=== PATIENT | male | born 1975 | race Caucasian/White ===

== ENCOUNTER 2019-04-03 13:01 | Emergency (ER) | payer SELFPAY ==
[2019-04-03 13:39] LABS: Absolute Lymphocytes (CBC) 2.2 K/uL (0.7-4.9); Absolute Monocytes 0.6 K/uL (0.1-1.3); Absolute Neutrophil 7.8 K/uL (1.8-8.0); Basophils % 1.4 % (0-1.3); Eosinophils % 1.1 % (0-4.4); Hematocrit 43.2 % (39.6-49.0); Lymphocytes % 20.1 % (15.3-44.8); MPV 9.4 fL (7.6-11.3); Monocytes % 5.7 % (3.3-12.3); RBC Red Blood Cell Count 4.85 M/uL (4.33-5.43)
[2019-04-03 13:49] LABS: Protime INR 0.96
[2019-04-03] MEDS ORDERED: FUROSEMIDE 100 MG/10 ML VIAL IV ONE (13:51)
[2019-04-03] MEDS ORDERED: NITROGLYCERIN 1 GM PKT TD ONE (13:51)
[2019-04-03 13:58] LABS: ALT/SGPT 55 U/L (12-78); AST/SGOT 30 U/L (15-37); Albumin 3.5 g/dL (3.4-5.0); Alkaline Phosphatase 118 U/L (45-117); BUN Blood Urea Nitrogen 19 mg/dL (7-18); Bicarbonate 23 mmol/L (21-32); Bilirubin Direct < 0.1 mg/dL (0-0.2); Bilirubin Total 0.5 mg/dL (0.2-1.0); Glucose Level 238 mg/dL (74-106); Magnesium 2.1 mg/dL (1.8-2.4); NT PRO-BNP 1584 pg/mL (<125); Protein, Total 8.4 g/dL (6.4-8.2); Sodium Level 137 mmol/L (136-145); Troponin (Emerg Dept Use Only) < 0.02 ng/mL (0.0-0.045)
[2019-04-03 14:10] LABS: Urine Blood TRACE (NEG); Urine Glucose 2+ (NEG); Urine Protein 3+ (NEG); Urine pH 7.5 (5.0-7.0)
--- NOTE | 2019-04-03 14:27 | RAD REPORT ---
EXAM DESCRIPTION: RAD - Chest Single View - 04/03/2019 1:56 pm CLINICAL HISTORY: DYSPNEA Chest pain. COMPARISON: CHEST SINGLE VIEW dated 03/24/2015 FINDINGS: Portable technique limits examination quality. Moderate bilateral pulmonary opacities are present compatible with pulmonary edema. The heart is mode rately prominent size. No displaced fractures. IMPRESSION: Moderate CHF.
[2019-04-03] MEDS ORDERED: hydrOXYzine HCl 25 MG TAB ONE (15:58)
[2019-04-03] MEDS ORDERED: NITROGLYCERIN 0.4 MG/TAB SL ONE (15:58)
--- NOTE | 2019-04-03 16:54 | EDPHYS ---
Physician Documentation [facility] Name: Seth Smith Age: 43 yrs Sex: Male : 1975 Arrival Date: 04/03/2019 Time: 13:04 Bed 6 Private MD: Unknown, Unknown ED Physician Tanvir Ferreira HPI: 04/03 15:44 This 43 yrs old Male presents to ER via Ambulatory with complaints of jr8 Breathing Difficulty. 15:44 The patient has shortness of breath at rest. Onset: The symptoms/episode began/occurred jr8 gradually, 2 day(s) ago, and became worse and became persistent. Duration: The symptoms are continuous. The patient's shortness of breath is aggravated by exertion, supine position. Associated signs and symptoms: The patient has no apparent associated signs or symptoms. Severity of symptoms: At their worst the symptoms were moderate in the emergency department the symptoms are unchanged. The patient has experienced similar episodes in the past, a few times. The patient has not recently seen a physician. History of CHF. Started to have shortness of breath about 2 days ago that is now constant and without relief despite home medication . Historical: - Allergies: 13:11 Ativan; la1 13:11 Dilantin; la1 - PMHx: 13:11 Diabetes - NIDDM; CHF; COPD; Seizures; la1 - Immunization history:: Adult Immunizations up to date. - Social history:: Smoking status: Patient uses tobacco products, smokes one pack cigarettes per day. - Ebola Screening: : No symptoms or risks identified at this time. ROS: 15:44 Eyes: Negative for injury, pain, redness, and discharge, ENT: Negative for injury, jr8 pain, and discharge, Neck: Negative for injury, pain, and swelling, Cardiovascular: Negative for chest pain, palpitations, and edema, Abdomen/GI: Negative for abdominal pain, nausea, vomiting, diarrhea, and constipation, Back: Negative for injury and pain, MS/Extremity: Negative for injury and deformity, Skin: Negative for injury, rash, and discoloration, Neuro: Negative for headache, weakness, numbness, tingling, and seizure. 15:44 Respiratory: Positive for dyspnea on exertion, orthopnea, shortness of breath. Exam: 15:44 Eyes: Pupils equal round and reactive to light, extra-ocular motions intact. Lids and jr8 lashes normal. Conjunctiva and sclera are non-icteric and not injected. Cornea within normal limits. Periorbital areas with no swelling, redness, or edema. ENT: Nares patent. No nasal discharge, no septal abnormalities noted. Tympanic membranes are normal and external auditory canals are clear. Oropharynx with no redness, swelling, or masses, exudates, or evidence of obstruction, uvula midline. Mucous membranes moist. Neck: Trachea midline, no thyromegaly or masses palpated, and no cervical lymphadenopathy. Supple, full range of motion without nuchal rigidity, or vertebral point tenderness. No Meningismus. Abdomen/GI: Soft, non-tender, with normal bowel sounds. No distension or tympany. No guarding or rebound. No evidence of tenderness throughout. Back: No spinal tenderness. No costovertebral tenderness. Full range of motion. Skin: Warm, dry with normal turgor. Normal color with no rashes, no lesions, and no evidence of cellulitis. MS/ Extremity: Pulses equal, no cyanosis. Neurovascular intact. Full, normal range of motion. Neuro: Awake and alert, GCS 15, oriented to person, place, time, and situation. Cranial nerves II-XII grossly intact. Motor strength 5/5 in all extremities. Sensory grossly intact. Cerebellar exam normal. Normal gait. 15:44 Cardiovascular: Rate: tachycardic, Rhythm: regular, Pulses: Pulses are 2+ in right radial artery and left radial artery. Heart sounds: normal, normal S1and S2, no S3 or S4, no murmur, no rub, no gallop, Edema: 2+ edema to level of left midcalf, left ankle, left foot, right midcalf, right ankle and right foot, JVD: is not appreciated. 15:44 Respiratory: mild respiratory distress is noted, Respirations: tachypnea, Breath sounds: rales, that are mild, are located in both bases. Vital Signs: 13:11 BP 197 / 132; Pulse 108; Resp 32; Temp 97.5; Pulse Ox 99% on R/A; Weight 113.4 kg; la1 Height 5 ft. 11 in. (180.34 cm); 13:20 BP 166 / 124; Pulse 104; Resp 30 S; Pulse Ox 98% on R/A; iw 14:30 BP 159 / 116; Pulse 103; Resp 28; Pulse Ox 97% on R/A; ph 15:48 BP 178 / 122; Pulse 100; Resp 22; Pulse Ox 97% on R/A; ph 17:03 BP 165 / 106; Pulse 91; Resp 20; Pulse Ox 99% on R/A; ph 17:22 Temp 97.4; ph 13:11 Body Mass Index 34.87 (113.40 kg, 180.34 cm) la1 MDM: 13:22 Patient medically screened. jr8 16:50 Data reviewed: vital signs, nurses notes, lab test result(s), EKG, radiologic studies, jr8 plain films. Data interpreted: Pulse oximetry: on room air is 97 %. Interpretation: normal. Counseling: I had a detailed discussion with the patient and/or guardian regarding: the historical points, exam findings, and any diagnostic results supporting the discharge/admit diagnosis, lab results, radiology results, the need for outpatient follow up, a animator, to return to the emergency department if symptoms worsen or persist or if there are any questions or concerns that arise at home. Response to treatment: the patient's symptoms have markedly improved after treatment. ED course: Patient with mild CHF exacerbation. No other acute findings. Diuresed and BP managed. Patient feeling markedly better and now is resting comfortably flat. Will d/c home to f/u with Battery Recharger. If worse to come back for admission . 04/03 13:26 Order name: Basic Metabolic Panel; Complete Time: 14:03 04/03 13:26 Order name: CBC with Diff; Complete Time: 13:51 04/03 13:26 Order name: LFT's; Complete Time: 14:03 04/03 13:26 Order name: Magnesium; Complete Time: 14:03 04/03 13:26 Order name: NT PRO-BNP; Complete Time: 14:03 04/03 13:26 Order name: PT-INR; Complete Time: 14:03 04/03 13:26 Order name: Troponin (emerg Dept Use Only); Complete Time: 14:03 04/03 13:26 Order name: XRAY Chest (1 view); Complete Time: 14:43 04/03 13:26 Order name: EKG; Complete Time: 13:27 04/03 13:56 Order name: Urine Dipstick--Ancillary (enter results) ms 04/03 13:26 Order name: Cardiac monitoring; Complete Time: 15:10 04/03 13:26 Order name: EKG - Nurse/Tech; Complete Time: 15:10 04/03 13:26 Order name: IV Saline Lock; Complete Time: 14:46 04/03 13:26 Order name: Labs collected and sent; Complete Time: 15:10 04/03 13:26 Order name: O2 Per Protocol; Complete Time: 15:10 04/03 13:26 Order name: O2 Sat Monitoring; Complete Time: 15:10 Administered Medications: 14:15 Drug: Nitroglycerin Ointment 2 % 1 inches Route: Transdermal; Site: anterior chest wall;ph 15:00 Follow up: Response: No adverse reaction; Blood pressure is unchanged ph 14:35 Drug: Lasix 80 mg Route: IVP; Site: right antecubital; ph 16:00 Follow up: Urine output 3900 ml; Response: No adverse reaction; Marked relief of ph symptoms 15:48 Drug: Nitroglycerin 0.4 mg Route: Sublingual; ph 15:48 Drug: hydrOXYzine 50 mg Route: PO; ph 16:30 Follow up: Response: No adverse reaction; Anxiety decreased ph 16:12 Drug: Nitroglycerin 0.4 mg Route: Sublingual; ph 16:55 Drug: Nitroglycerin 0.4 mg Route: Sublingual; ph 17:00 Follow up: Response: No adverse reaction; Blood pressure is lowered ph Disposition: 04/04 12:50 Co-signature as Attending Physician, Tanvir Ferreira MD. Disposition: 04/03/19 16:53 Discharged to Home. Impression: Acute systolic (congestive) heart failure. - Condition is Stable. - Discharge Instructions: Heart Failure. - Medication Reconciliation Form, Thank You Letter, Antibiotic Education, Prescription Opioid Use form. - Follow up: Private Physician; When: 1 - 2 days; Reason: Recheck today's complaints, Continuance of care, Re-evaluation by your physician. - Problem is new. - Symptoms have improved. Signatures: Dispatcher [employer] EDMisbah Bland PA PA jr8 Shakeel Berry RN RN la1 Karen Elliott RN RN ph FerreiraTanvir MD MD gs Corrections: (The following items were deleted from the chart) 04/03 17:28 16:53 04/03/2019 16:53 Discharged to Home. Impression: Acute systolic (congestive) ph heart failure. Condition is Stable. Forms are Medication Reconciliation Form, Thank You Letter, Antibiotic Education, Prescription Opioid Use. Follow up: Private Physician; When: 1 - 2 days; Reason: Recheck today's complaints, Continuance of care, Re-evaluation by your physician. Problem is new. Symptoms have improved. jr8
--- NOTE | 2019-04-03 16:54 | ER ---
Nurse's Notes [facility] Name: Seth Smith Age: 43 yrs Sex: Male : 1975 Arrival Date: 04/03/2019 Time: 13:04 Bed 6 Private MD: Unknown, Unknown Diagnosis: Acute systolic (congestive) heart failure Presentation: 04/03 13:10 Presenting complaint: Patient states: Progressive SOB for the last 2 days, states if la1 feels like exacerbation of CHF and is swelling. Transition of care: patient was not received from another setting of care. Onset of symptoms was April 03, 2019. Risk Assessment: Do you want to hurt yourself or someone else? Patient reports no desire to harm self or others. Initial Sepsis Screen: Does the patient meet any 2 criteria? RR > 20 per min. Does the patient have a suspected source of infection? No. Patient's initial sepsis screen is negative. Care prior to arrival: None. 13:10 Method Of Arrival: Ambulatory la1 13:10 Acuity: MARKUS 2 la1 Historical: - Allergies: 13:11 Ativan; la1 13:11 Dilantin; la1 - PMHx: 13:11 Diabetes - NIDDM; CHF; COPD; Seizures; la1 - Immunization history:: Adult Immunizations up to date. - Social history:: Smoking status: Patient uses tobacco products, smokes one pack cigarettes per day. - Ebola Screening: : No symptoms or risks identified at this time. Screenin:00 Abuse screen: Denies threats or abuse. Denies injuries from another. Nutritional ph screening: No deficits noted. Tuberculosis screening: No symptoms or risk factors identified. Fall Risk None identified. Assessment: 13:30 General: Appears in no apparent distress. uncomfortable, obese, well groomed, Behavior ph is calm, cooperative, appropriate for age, Denies fever, feeling ill. Pain: Complains of pain in anterior aspect of left upper chest Pain does not radiate. Pain currently is 3 out of 10 on a pain scale. Quality of pain is described as pressure. Neuro: Level of Consciousness is awake, alert, obeys commands, Oriented to person, place, time, situation. Cardiovascular: Reports chest pain, shortness of breath, Denies nausea, palpitations, vomiting, Capillary refill < 3 seconds in bilateral fingers Patient's skin is warm and dry. Edema is 2+ to left ankle, left foot, right ankle and right foot Rhythm is sinus tachycardia Chest pain is described as mild, quality is pressure, is located in left anterior chest wall. Respiratory: Airway is patent Respiratory effort is even, labored, shallow, Respiratory pattern is tachypnea Breath sounds with crackles bilaterally. GI: Abdomen is round Patient currently denies abdominal pain, nausea, vomiting. Derm: Skin is intact, is healthy with good turgor, Skin is pink, warm \\T\\ dry. Musculoskeletal: Circulation, motion, and sensation intact. Range of motion: intact in all extremities. 14:30 Reassessment: Patient appears in no apparent distress at this time. Patient and/or ph family updated on plan of care and expected duration. Pain level reassessed. Patient is alert, oriented x 3, equal unlabored respirations, skin warm/dry/pink. 15:30 Reassessment: Patient appears in no apparent distress at this time. Patient and/or ph family updated on plan of care and expected duration. Pain level reassessed. Patient is alert, oriented x 3, equal unlabored respirations, skin warm/dry/pink. Work of breathing noted to have improved, respirations even and unlabored at 24 bpm, pt reports that SOB is improving, pt states, " I am feeling a little anxious though." ERP notified of pt's anxiety, PO medication given see MAR Patient states symptoms have improved. 16:30 Reassessment: Patient appears in no apparent distress at this time. Patient and/or ph family updated on plan of care and expected duration. Pain level reassessed. Pt resting quietly w/ eyes closed, respirations even and unlabored, awakens easily, reports that anxiety has improved, family at bedside. 17:25 Reassessment: Patient appears in no apparent distress at this time. Patient and/or ph family updated on plan of care and expected duration. Pain level reassessed. Patient is alert, oriented x 3, equal unlabored respirations, skin warm/dry/pink. Pt instructed to take home medications as prescribed and d/c home w/ family Patient denies pain at this time. Patient states feeling better. Patient states symptoms have improved. Vital Signs: 13:11 BP 197 / 132; Pulse 108; Resp 32; Temp 97.5; Pulse Ox 99% on R/A; Weight 113.4 kg; la1 Height 5 ft. 11 in. (180.34 cm); 13:20 BP 166 / 124; Pulse 104; Resp 30 S; Pulse Ox 98% on R/A; iw 14:30 BP 159 / 116; Pulse 103; Resp 28; Pulse Ox 97% on R/A; ph 15:48 BP 178 / 122; Pulse 100; Resp 22; Pulse Ox 97% on R/A; ph 17:03 BP 165 / 106; Pulse 91; Resp 20; Pulse Ox 99% on R/A; ph 17:22 Temp 97.4; ph 13:11 Body Mass Index 34.87 (113.40 kg, 180.34 cm) la1 ED Course: 13:04 Patient arrived in ED. ag5 13:04 Unknown, Unknown is Private Physician. ag5 13:10 Triage completed. la1 13:11 Arm band placed on left wrist. la1 13:22 Misbah Eugene PA is PHCP. jr8 13:22 Tanvir Ferreira MD is Attending Physician. jr8 13:32 Glenn Mazariegos LVN is Primary Nurse. em 13:45 Patient has correct armband on for positive identification. Placed in gown. Bed in low ph position. Call light in reach. Side rails up X 1. criminal justice lawyer on. Pulse ox on. NIBP on. 13:59 XRAY Chest (1 view) In Process Unspecified. EDMS 14:25 Missed attempt(s): 22 gauge in right antecubital area. Bleeding controlled, band aid ph applied, catheter tip intact. Missed attempt(s): 20 gauge in right forearm. Bleeding controlled, band aid applied, catheter tip intact. 14:46 Accessed peripheral vein via ultrasound, utilizing dynamic ultrasound technique using la1 18G Sureflo IV catheter MANNY. 15:37 Karen Elliott, RN is Primary Nurse. ph 17:25 No provider procedures requiring assistance completed. IV discontinued, intact, ph bleeding controlled, No redness/swelling at site. Pressure dressing applied. Administered Medications: 14:15 Drug: Nitroglycerin Ointment 2 % 1 inches Route: Transdermal; Site: anterior chest wall;ph 15:00 Follow up: Response: No adverse reaction; Blood pressure is unchanged ph 14:35 Drug: Lasix 80 mg Route: IVP; Site: right antecubital; ph 16:00 Follow up: Urine output 3900 ml; Response: No adverse reaction; Marked relief of ph symptoms 15:48 Drug: Nitroglycerin 0.4 mg Route: Sublingual; ph 15:48 Drug: hydrOXYzine 50 mg Route: PO; ph 16:30 Follow up: Response: No adverse reaction; Anxiety decreased ph 16:12 Drug: Nitroglycerin 0.4 mg Route: Sublingual; ph 16:55 Drug: Nitroglycerin 0.4 mg Route: Sublingual; ph 17:00 Follow up: Response: No adverse reaction; Blood pressure is lowered ph Output: 15:15 Urine: 1000ml (Voided); Total: 1000ml. ph 16:00 Urine: 3900ml; Total: 4900ml. ph 16:30 Urine: 1500ml (Voided); Total: 6400ml. ph 17:25 Urine: 1400ml (Voided); Total: 7800ml. ph Outcome: 16:53 Discharge ordered by jrGianni 17:28 Patient left the ED. ph 17:28 Discharged to home ambulatory, with family. ph 17:28 Condition: improved 17:28 Discharge instructions given to patient, Instructed on discharge instructions, follow up and referral plans. Demonstrated understanding of instructions, follow-up care. Signatures: Dispatcher [employer] Glenn Lopez, TORCH CUTTER TORCH CUTTER Alma Rosa Alvarez RN RN iw Roszak, Josh, PA PA jr8 Shakeel Berry RN RN la1 Hall, Patricia, RN RN ph G[place]in, Pastor [facility]
--- NOTE | 2019-04-04 10:38 | EKG ---
Test Date: 2019-04-03 Test Time: 13:19:47 Shear Helper: AGNES MEASUREMENT RESULTS: Intervals: Rate: 105 MI: 168 QRSD: 88 QT: 378 QTc: 499 [place]: P: 58 MI: 168 QRS: 65 T: 59 INTERPRETIVE STATEMENTS: Sinus tachycardia Possible Left atrial enlargement Borderline ECG Compared to ECG 03/24/2015 13:10:51 No significant changes Electronically Signed On 04-04-19 10:37:26 CDT by Spencer Bermeo
== END 2019-04-03 17:28 | disposition home or self-care (01) ==
LOC: ER 13:01
DX: I50.21 Acute systolic (congestive) heart failure (principal); E11.9 Type 2 diabetes mellitus without complications; J44.9 Chronic obstructive pulmonary disease, unspecified; Z88.8 Allergy status to other drugs, medicaments and biological substances; F17.210 Nicotine dependence, cigarettes, uncomplicated
CPT/HCPCS: 36415; 71045; 80048; 80076; 81003; 83735; 83880; 84484; 85025; 85610; 93005; 96374; 99285

== ENCOUNTER 2019-09-12 09:41 | Emergency (ER) | payer SELFPAY ==
[2019-09-12] MEDS ORDERED: METOPROLOL TARTRATE 5 MG/5 ML INJ IV ONE (10:24)
[2019-09-12 10:37] LABS: Absolute Lymphocytes (CBC) 1.1 K/uL (0.7-4.9); Basophils % 0.9 % (0-1.3); Hematocrit 40.7 % (39.6-49.0); Lymphocytes % 12.9 % (15.3-44.8); MPV 9.3 fL (7.6-11.3); RBC Red Blood Cell Count 4.65 M/uL (4.33-5.43)
[2019-09-12 10:39] LABS: Protime INR 1.01
[2019-09-12 10:51] LABS: ALT/SGPT 36 U/L (12-78); AST/SGOT 26 U/L (15-37); Albumin 3.1 g/dL (3.4-5.0); Alkaline Phosphatase 100 U/L (45-117); BUN Blood Urea Nitrogen 22 mg/dL (7-18); Bicarbonate 27 mmol/L (21-32); Bilirubin Direct 0.1 mg/dL (0-0.2); Bilirubin Total 0.5 mg/dL (0.2-1.0); Glucose Level 302 mg/dL (74-106); Magnesium 1.9 mg/dL (1.8-2.4); NT PRO-BNP 1022 pg/mL (<125); Potassium 3.6 mmol/L (3.5-5.1); Protein, Total 7.9 g/dL (6.4-8.2); Sodium Level 133 mmol/L (136-145); Troponin (Emerg Dept Use Only) < 0.02 ng/mL (0.0-0.045)
--- NOTE | 2019-09-12 10:54 | RAD REPORT ---
EXAM DESCRIPTION: RAD - Chest Single View - 09/12/2019 10:31 am CLINICAL HISTORY: CHF, COPD COMPARISON: April 03 ; March 2015 TECHNIQUE: AP portable chest image was obtained 1022 hours . FINDINGS: Mild prominent interstitial lung pattern is less pronounced than most recent comparison. H eart size is borderline enlarged. Vasculature within normal limits for portable imaging. Mediastinum is distorted somewhat by rotation. No measurable pleural effusion and no pneumothorax. No acute bony abnormality seen. No acute aortic findings suspected. IMPRESSION: No acute cardiopulmonary process. Patient does have mild interstitial prominence potentially masking earliest stages of edema or infilt rate.
--- NOTE | 2019-09-12 13:53 | ER ---
Nurse's Notes [facility] Name: Seth Smith Age: 44 yrs Sex: Male : 1975 Arrival Date: 09/12/2019 Time: 09:41 Bed 2 Private MD: Diagnosis: Chest pain on breathing Presentation: 09/12 10:48 Presenting complaint: Patient states: Patient states he is having chest pain and was ae4 worried about being exposed to carbon monoxide the previous evening, as he was with a friend whose car did not have a muffler, and his friend was treated for carbon monoxide poisoning. Transition of care: patient was not received from another setting of care. Onset of symptoms was September 08, 2019. Risk Assessment: Do you want to hurt yourself or someone else?. Initial Sepsis Screen: Does the patient meet any 2 criteria? No. Patient's initial sepsis screen is negative. Does the patient have a suspected source of infection? No. Patient's initial sepsis screen is negative. 10:48 Acuity: MARKUS 2 ae4 10:48 Method Of Arrival: Wheelchair ae4 10:48 Care prior to arrival: None. ae4 Historical: - Allergies: 10:27 Ativan; jl7 10:27 Dilantin; jl7 - Home Meds: 11:13 Bumex Oral [Active]; Metformin Oral [Active]; Entresto oral oral [Active]; ae4 11:14 Coreg Oral [Active]; ae4 - PMHx: 10:27 CHF; COPD; Diabetes - NIDDM; Seizures; jl7 - Immunization history:: Adult Immunizations up to date, Flu vaccine is not up to date. - Ebola Screening: : No symptoms or risks identified at this time. - Social history:: Smoking status: Patient uses tobacco products, smokes one-half pack cigarettes per day, Patient uses Patient reports hx of IV drug use. . Screenin:32 Abuse screen: Denies threats or abuse. Nutritional screening: No deficits noted. ae4 Tuberculosis screening: No symptoms or risk factors identified. Fall Risk None identified. Assessment: 09:48 General: Appears uncomfortable, obese, Behavior is cooperative, anxious, restless. ae4 Pain: Complains of pain in chest Pain does not radiate. Pain began gradually, 2-3 days ago. Neuro: Level of Consciousness is awake, alert, obeys commands, Oriented to person, place, time, situation, Appropriate for age. Cardiovascular: Skin is cool and dry., slightly diaphortic.. Respiratory: Airway is patent Respiratory effort is even, shallow, Mildly labored. Respiratory pattern is regular, symmetrical, Breath sounds with wheezes bilaterally. GI: No signs and/or symptoms were reported involving the gastrointestinal system. Abdomen is round obese, Bowel sounds present X 4 quads. : No signs and/or symptoms were reported regarding the genitourinary system. EENT: No signs and/or symptoms were reported regarding the EENT system. Derm: Patient has various dried lesions on ZEYAD arms. 11:58 Reassessment: Patient appears in no apparent distress at this time. Patient and/or ae4 family updated on plan of care and expected duration. Pain level reassessed. Patient states feeling better. Patient states symptoms have improved. 13:25 Reassessment: Patient appears in no apparent distress at this time. Patient lying in ae4 bed with eyes closed, respirations even, slightly labored. Patient states feeling better. 13:43 Reassessment: Patient appears in no apparent distress at this time. Patient and/or ae4 family updated on plan of care and expected duration. Pain level reassessed. Provider at bedside discussing plan of care. Patient states feeling better. 14:09 Reassessment: Patient and/or family updated on plan of care and expected duration. Pain ae4 level reassessed. Patient states feeling better. 14:12 Reassessment: Information on local certified social workers in health care provided for patient., per provider. ae4 Vital Signs: 10:24 BP 181 / 108; Pulse 104; Resp 22; Temp 98.4(O); Pulse Ox 100% on R/A; ae4 10:32 BP 157 / 102; Pulse 96; Resp 19; Pulse Ox 99% on R/A; ae4 10:47 BP 175 / 111; Pulse 92; Resp 19; Pulse Ox 97% on R/A; ae4 11:03 BP 161 / 105; Pulse 90; Resp 18; Pulse Ox 97% on R/A; ae4 11:07 Weight 117.93 kg (R); ae4 11:14 BP 150 / 101; Pulse 98; Resp 19; Pulse Ox 98% on R/A; ae4 11:14 ae4 11:58 BP 160 / 108; Pulse 99; Resp 20 S; Pulse Ox 98% ; ae4 13:27 BP 157 / 101; Pulse 99; Resp 20; Pulse Ox 98% on R/A; ae4 14:09 BP 176 / 112; Pulse 88; Resp 20; Pulse Ox 98% on R/A; ae4 11:14 Oxyegen applied at 3 L per Provider's order. ae4 ED Course: 09:41 Patient arrived in ED. mr 09:47 oYsi Pacheco MD is Attending Physician. kdr 09:57 Jerson Brown, RN is Primary Nurse. ae4 10:27 Arm band placed on right wrist. jl7 10:32 XRAY Chest (1 view) In Process Unspecified. EDMS 10:32 Placed in gown. Bed in low position. Call light in reach. Side rails up X 1. Cardiac ae4 monitor on. Pulse ox on. NIBP on. Warm blanket given. 10:32 Inserted saline lock: 22 gauge in right antecubital area, using aseptic technique. ae4 Blood collected. Patient maintains SpO2 saturation greater than 95% on room air. 10:52 Triage completed. ae4 14:09 IV discontinued, intact, bleeding controlled, No redness/swelling at site. Pressure ae4 dressing applied. 14:09 No provider procedures requiring assistance completed. ae4 Administered Medications: 10:00 Drug: Lopressor 5 mg Route: IVP; Site: right antecubital; ae4 10:43 Drug: Lopressor 5 mg Route: IVP; Site: right antecubital; ae4 11:03 Drug: Lopressor 5 mg Route: IVP; Site: right antecubital; ae4 11:07 Follow up: Response: Blood pressure is lowered ae4 Outcome: 13:52 Discharge ordered by . kdr 14:09 Discharged to home ambulatory. ae4 14:09 Condition: stable 14:09 Discharge instructions given to patient, Instructed on discharge instructions, follow up and referral plans. medication usage, Demonstrated understanding of instructions, Prescriptions given X 4. 14:13 Patient left the ED. ae4 Signatures: Dispatcher [employer] EDMS Yosi Pacheco MD MD kdr Rivera Snow Rodriguez Maya, CAROLA RN jl7 Jerson Brown, [place] RN ae4
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
[2019-09-12 15:37] VITALS: TEMP 98.4
[2019-09-12 15:42] VITALS: O2SAT 98
[2019-09-12 15:45] VITALS: BP 176/112
--- NOTE | 2019-09-13 09:36 | EKG ---
Test Date: 2019-09-12 Test Time: 09:54:15 Bull Driver: ISH MEASUREMENT RESULTS: Intervals: Rate: 96 WV: 182 QRSD: 86 QT: 390 QTc: 492 [place]: P: 41 WV: 182 QRS: 49 T: 68 INTERPRETIVE STATEMENTS: Normal sinus rhythm Prolonged QT Abnormal ECG Compared to ECG 04/03/2019 13:19:47 Prolonged QT interval now present Sinus tachycardia no longer present Electronically Signed On 09-13-19 09:36:00 FILING MACHINE OPERATOR by Spencer Bermeo
== END 2019-09-12 14:13 | disposition home or self-care (01) ==
LOC: ER 09:41
DX: R07.1 Chest pain on breathing (principal); E11.9 Type 2 diabetes mellitus without complications; J44.9 Chronic obstructive pulmonary disease, unspecified; I50.9 Heart failure, unspecified; G40.909 Epilepsy, unspecified, not intractable, without status epilepticus; F17.210 Nicotine dependence, cigarettes, uncomplicated; Z88.8 Allergy status to other drugs, medicaments and biological substances
CPT/HCPCS: 36415; 71045; 80048; 80076; 83735; 83880; 84484; 85025; 85610; 93005; 96374; 99285

== ENCOUNTER 2019-12-09 09:16 | Emergency (ER) | payer SELFPAY ==
[2019-12-09] MEDS ORDERED: NA CHLORIDE 0.9% 500 ML ONE (09:43)
[2019-12-09] MEDS ORDERED: ONDANSETRON 4 MG/2 ML VIAL ONE (09:43)
--- NOTE | 2019-12-09 10:22 | RAD REPORT ---
EXAM DESCRIPTION: RAD - Chest Single View - 12/09/2019 9:52 am CLINICAL HISTORY: vomiting;Chest pain Chest pain. COMPARISON: Chest Single View dated 09/12/2019; Chest Single View dated 04/03/2019; CHEST SINGLE VIEW dated 03/24/2015 FINDINGS: Portable technique limits examination quality. Mild interstitial pulmonary edema. The heart is moderately enlarged. No displaced fractures. IMPRESSION: Mild CHF.
[2019-12-09 12:03] LABS: Absolute Lymphocytes (CBC) 1.4 K/uL (0.7-4.9); Hematocrit 39.5 % (39.6-49.0); Lymphocytes % 12.2 % (15.3-44.8); MPV 8.8 fL (7.6-11.3); RBC Red Blood Cell Count 4.55 M/uL (4.33-5.43)
[2019-12-09 12:06] LABS: Protime INR 1.03
[2019-12-09 12:18] LABS: ALT/SGPT 24 U/L (12-78); AST/SGOT 17 U/L (15-37); Albumin 3.3 g/dL (3.4-5.0); Alkaline Phosphatase 137 U/L (45-117); BUN Blood Urea Nitrogen 35 mg/dL (7-18); Bicarbonate 27 mmol/L (21-32); Bilirubin Direct 0.1 mg/dL (0-0.2); Bilirubin Total 0.4 mg/dL (0.2-1.0); Glucose Level 260 mg/dL (74-106); Magnesium 2.4 mg/dL (1.8-2.4); NT PRO-BNP 392 pg/mL (<125); Potassium 5.2 mmol/L (3.5-5.1); Protein, Total 8.2 g/dL (6.4-8.2); Sodium Level 135 mmol/L (136-145); Troponin (Emerg Dept Use Only) < 0.02 ng/mL (0.0-0.045)
--- NOTE | 2019-12-09 12:44 | ER ---
Nurse's Notes [facility] Name: Seth Smith Age: 44 yrs Sex: Male : 1975 Arrival Date: 12/09/2019 Time: : Bed 19 Private MD: Diagnosis: Nausea and vomiting;Hyperglycemia, unspecified;Diabetes mellitus due to underlying condition;Dehydration Presentation: 12/09 09:22 Presenting complaint: N/V x 2 days, SOB and chest pressure since last night. Transition hb of care: patient was not received from another setting of care. Onset of symptoms was December 07, 2019. Risk Assessment: Do you want to hurt yourself or someone else? Patient reports no desire to harm self or others. Initial Sepsis Screen: Does the patient meet any 2 criteria? No. Patient's initial sepsis screen is negative. Does the patient have a suspected source of infection? No. Patient's initial sepsis screen is negative. Care prior to arrival: None. 09:22 Method Of Arrival: Ambulatory hb 09: Acuity: MARKUS 3 hb Triage Assessment: :24 General: Appears in no apparent distress. obese, well groomed, Behavior is calm, tw2 cooperative, appropriate for age. Pain: Complains of pain in chest. Cardiovascular: Reports chest pain. Historical: - Allergies: : Ativan; tw2 09: Dilantin; tw2 - Home Meds: : Metformin Oral [Active]; Entresto Oral [Active]; Coreg Oral [Active]; Bumex Oral tw2 [Active]; - PMHx: :23 CHF; COPD; Diabetes - NIDDM; Seizures; tw2 - Immunization history:: Adult Immunizations. - Coronavirus screen:: The patient has NOT traveled to [place] in the past 14 days. - Social history:: Smoking status: Patient uses street drugs, Methamphetamine (Meth) "i have no vein access because i shoot meth and i have used them all, now i am smoking it because i cant get it into a vein", . - Ebola Screening: : Patient denies travel to an Ebola-affected area in the 21 days before illness onset. Screenin: Abuse screen: Denies threats or abuse. Nutritional screening: No deficits noted. tw2 Tuberculosis screening: No symptoms or risk factors identified. Fall Risk None identified. Assessment: 09:20 General: Appears in no apparent distress. obese, unkempt, Behavior is calm, tw2 cooperative, appropriate for age. Pain: Pain does not radiate. Pain began 2-3 days ago. Neuro: Level of Consciousness is awake, alert, obeys commands, Oriented to person, place, time, situation. Cardiovascular: Heart tones S1 S2 Patient's skin is warm and dry. Respiratory: Reports shortness of breath at rest on exertion Airway is patent Respiratory effort is even, unlabored, Respiratory pattern is regular, symmetrical, Breath sounds are clear bilaterally. GI: Abdomen is round distended, Bowel sounds present X 4 quads. : No signs and/or symptoms were reported regarding the genitourinary system. EENT: No signs and/or symptoms were reported regarding the EENT system. Derm: Wound noted right hand, left hand, right arm, left arm, right leg and left leg Wound is pt has multiple wounds or skin sores in appearance on b/l hands, arms, legs, pt reports METH use. Musculoskeletal: Range of motion: intact in all extremities. 11:00 Reassessment: CAROLA Wiseman at bedside with US at this time, unsuccessful attempt, pt tw2 tolerated well. CAROLA Wiseman remains at bedside with Reyna Pagan to assist in further attempts at midline at this time, provider notified of delay for line, labs, medication admin at this time. 12:00 Reassessment: Patient appears in no apparent distress at this time. No changes from tw2 previously documented assessment. Patient and/or family updated on plan of care and expected duration. Pain level reassessed. Patient is alert, oriented x 3, equal unlabored respirations, skin warm/dry/pink. 12:58 Reassessment: Patient appears in no apparent distress at this time. No changes from tw2 previously documented assessment. Patient and/or family updated on plan of care and expected duration. Pain level reassessed. Patient is alert, oriented x 3, equal unlabored respirations, skin warm/dry/pink. Vital Signs: 09:22 BP 170 / 112; Pulse 84; Resp 16; Temp 97.4; Pulse Ox 100% ; Weight 117.93 kg; Height 5 hb ft. 11 in. (180.34 cm); Pain 7/10; 10:00 BP 170 / 113; Pulse 87; Resp 17; Pulse Ox 99% on 2 lpm NC; tw2 11:00 BP 164 / 113; Pulse 82; Resp 17; Pulse Ox 100% on R/A; tw2 12:03 BP 169 / 116; Pulse 80; Resp 17; Pulse Ox 99% on 2 lpm NC; tw2 12:59 BP 163 / 114; Pulse 77; Resp 17; Pulse Ox 99% on R/A; tw2 09:22 Body Mass Index 36.26 (117.93 kg, 180.34 cm) hb ED Course: 09:20 Patient arrived in ED. tw2 09:20 Arm band placed on. tw2 09:23 Triage completed. hb 09:23 EKG completed in triage. Results shown to MD. tw2 09:24 Patient has correct armband on for positive identification. Placed in gown. Bed in low hb position. Call light in reach. Side rails up X 1. abrasive band winder on. Pulse ox on. NIBP on. 09:24 Patient maintains SpO2 saturation greater than 95% on room air. tw2 09:25 Donna Hernandez RN is Primary Nurse. tw2 09:27 Yosi Pacheco MD is Attending Physician. kdr 09:52 XRAY Chest (1 view) In Process Unspecified. EDMS 11:20 Assisted CAROLA Wiseman with Ultrasound IV sent blood. dh3 11:20 Initial lab(s) drawn, by me, sent to lab. Inserted 18 G 8 CM PowerGlide Midline pro to sg the RUE. 12:56 IV discontinued, intact, bleeding controlled, No redness/swelling at site. Pressure tw2 dressing applied. Administered Medications: 11:55 Drug: Zofran 4 mg Route: IVP; Site: right upper arm; tw2 12:59 Follow up: Response: No adverse reaction; Nausea is decreased tw2 11:55 Drug: NS 0.9% 500 ml Route: IV; Rate: bolus; Site: right upper arm; tw2 12:50 Follow up: Response: No adverse reaction; IV Status: Completed infusion; IV Intake: tw2 500ml Intake: 12:50 IV: 500ml; Total: 500ml. tw2 Outcome: 12:43 Discharge ordered by . kdr 12:57 Discharged to home ambulatory, with family. tw2 12:57 Condition: stable 12:57 Discharge instructions given to patient, family, Instructed on discharge instructions, follow up and referral plans. medication usage, Demonstrated understanding of instructions, follow-up care, medications, Prescriptions given X 1. 13:00 Patient left the ED. tw2 Signatures: Dispatcher [employer] EDMS Bowen Holman, RN CAROLA Yosi Pacheco MD MD [facility] Cristina Tong RN RN Donna Hernandez RN RN [facility] Latasha Mcmillan 3 Corrections: (The following items were deleted from the chart) 10:08 09:21 Social history: Smoking status: tw 11:56 11:20 Assisted Bowen with Ultrasound IV sent blood 3 3
--- NOTE | 2019-12-09 12:44 | EDPHYS ---
Physician Documentation [facility] Name: Seth Smith Age: 44 yrs Sex: Male : 1975 Arrival Date: 12/09/2019 Time: 09:20 Bed 19 Private MD: ED Physician Yosi Pacheco HPI: 12/09 11:24 This 44 yrs old Male presents to ER via Ambulatory with complaints of Chest kdr Pain > 30 y/o. 11:24 The patient presents to the emergency department with nausea, that is mild, vomiting, kdr that is intermittent, diarrhea, that is intermittent. Onset: The symptoms/episode began/occurred 2 day(s) ago. Possible causes: unknown. The symptoms are aggravated by food , The symptoms are alleviated by nothing. Associated signs and symptoms: Pertinent positives: diarrhea. Severity of symptoms: At their worst the symptoms were mild in the emergency department the symptoms are unchanged. The patient has not experienced similar symptoms in the past. The patient has not recently seen a physician. His chest pain is a chronis issue and unchanged in frequency, duration, severity from past. Historical: - Allergies: 09:23 Ativan; tw2 09:23 Dilantin; tw2 - Home Meds: 09:23 Metformin Oral [Active]; Entresto Oral [Active]; Coreg Oral [Active]; Bumex Oral tw2 [Active]; - PMHx: 09:23 CHF; COPD; Diabetes - NIDDM; Seizures; tw2 - Immunization history:: Adult Immunizations. - Coronavirus screen:: The patient has NOT traveled to [place] in the past 14 days. - Social history:: Smoking status: Patient uses street drugs, Methamphetamine (Meth) "i have no vein access because i shoot meth and i have used them all, now i am smoking it because i cant get it into a vein", . - Ebola Screening: : Patient denies travel to an Ebola-affected area in the 21 days before illness onset. ROS: 11:24 Constitutional: Negative for fever, chills, and weight loss, Eyes: Negative for injury, kdr pain, redness, and discharge, Neck: Negative for injury, pain, and swelling, Respiratory: Negative for shortness of breath, cough, wheezing, and pleuritic chest pain, Back: Negative for injury and pain, : Negative for injury, bleeding, discharge, and swelling, MS/Extremity: Negative for injury and deformity, Neuro: Negative for headache, weakness, numbness, tingling, and seizure activity. Psych: Negative for depression, anxiety, suicide ideation, homicidal ideation, and hallucinations, Allergy/Immunology: Negative for hives, rash, and allergies, Endocrine: Negative for neck swelling, polydipsia, polyuria, polyphagia, and marked weight changes - the patient is poorly compliant wiht his medications Hematologic/Lymphatic: Negative for swollen nodes, abnormal bleeding, and unusual bruising. 11:24 Cardiovascular: Positive for chest pain. 11:24 Abdomen/GI: Positive for constipation, abdominal cramps. Exam: 09:30 ECG was reviewed by the Attending Physician. kdr 11:24 Constitutional: This is a well developed, well nourished patient who is awake, alert, kdr and in no acute distress. Head/Face: Normocephalic, atraumatic. Eyes: Pupils equal round and reactive to light, extra-ocular motions intact. Lids and lashes normal. Conjunctiva and sclera are non-icteric and not injected. Cornea within normal limits. Periorbital areas with no swelling, redness, or edema. Neck: Trachea midline, no thyromegaly or masses palpated, and no cervical lymphadenopathy. Supple, full range of motion without nuchal rigidity, or vertebral point tenderness. No Meningismus. Chest/axilla: Normal chest wall appearance and motion. Nontender with no deformity. No lesions are appreciated. Cardiovascular: Regular rate and rhythm with a normal S1 and S2. No gallops, murmurs, or rubs. Normal PMI, no JVD. No pulse deficits. Respiratory: Lungs have equal breath sounds bilaterally, clear to auscultation and percussion. No rales, rhonchi or wheezes noted. No increased work of breathing, no retractions or nasal flaring. Abdomen/GI: Soft, non-tender, with normal bowel sounds. No distension or tympany. No guarding or rebound. No evidence of tenderness throughout. Back: No spinal tenderness. No costovertebral tenderness. Full range of motion. MS/ Extremity: Pulses equal, no cyanosis. Neurovascular intact. Full, normal range of motion. Neuro: Awake and alert, GCS 15, oriented to person, place, time, and situation. Cranial nerves II-XII grossly intact. Motor strength 5/5 in all extremities. Sensory grossly intact. Cerebellar exam normal. Normal gait. Psych: Awake, alert, with orientation to person, place and time. Behavior, mood, and affect are within normal limits. 11:24 Skin: cellulitis, induration, that is moderate is noted, Other The patient has multiple wounds on his body the worst of which is on his right foot. It has been there for months according to the patient. Vital Signs: 09:22 BP 170 / 112; Pulse 84; Resp 16; Temp 97.4; Pulse Ox 100% ; Weight 117.93 kg; Height 5 hb ft. 11 in. (180.34 cm); Pain 7/10; 10:00 BP 170 / 113; Pulse 87; Resp 17; Pulse Ox 99% on 2 lpm NC; tw2 11:00 BP 164 / 113; Pulse 82; Resp 17; Pulse Ox 100% on R/A; tw2 12:03 BP 169 / 116; Pulse 80; Resp 17; Pulse Ox 99% on 2 lpm NC; tw2 12:59 BP 163 / 114; Pulse 77; Resp 17; Pulse Ox 99% on R/A; tw2 09:22 Body Mass Index 36.26 (117.93 kg, 180.34 cm) hb MDM: 12:43 Patient medically screened. kdr 14:16 Data reviewed: vital signs, nurses notes, lab test result(s), radiologic studies. kdr Counseling: I had a detailed discussion with the patient and/or guardian regarding: the historical points, exam findings, and any diagnostic results supporting the discharge/admit diagnosis, lab results, radiology results, the need for outpatient follow up. 12/09 09:37 Order name: Basic Metabolic Panel; Complete Time: 12:39 kdr 12/09 09:37 Order name: CBC with Diff; Complete Time: 12:20 kdr 12/09 09:37 Order name: LFT's; Complete Time: 12:39 kdr 12/09 09:37 Order name: Magnesium; Complete Time: 12:39 kdr 12/09 09:37 Order name: NT PRO-BNP; Complete Time: 12:39 kdr 12/09 09:37 Order name: PT-INR kdr 12/09 09:37 Order name: Troponin (emerg Dept Use Only); Complete Time: 12:39 kdr 02/20 09:37 Order name: XRAY Chest (1 view); Complete Time: 11:43 kdr 12/09 09:37 Order name: EKG; Complete Time: 09:39 kdr 12/09 09:37 Order name: Cardiac monitoring; Complete Time: 09:39 kdr 12/09 09:37 Order name: EKG - Nurse/Tech; Complete Time: 09:40 kdr 12/09 09:37 Order name: IV Saline Lock; Complete Time: 11:56 kdr 12/09 09:37 Order name: Labs collected and sent; Complete Time: 11:56 kdr 12/09 09:37 Order name: O2 Per Protocol; Complete Time: 09:40 kdr 12/09 09:37 Order name: O2 Sat Monitoring; Complete Time: 09:40 kdr 12/09 11:58 Order name: PO challenge; Complete Time: 12:48 kdr EC:30 Rate is 81 beats/min. Rhythm is regular, Normal Sinus Rhythm with No ectopy. QRS [place] kdr is Normal. Clinical impression: NSR w/ Non-specific ST/T Changes. Administered Medications: 11:55 Drug: Zofran 4 mg Route: IVP; Site: right upper arm; tw2 12:59 Follow up: Response: No adverse reaction; Nausea is decreased tw2 11:55 Drug: NS 0.9% 500 ml Route: IV; Rate: bolus; Site: right upper arm; tw2 12:50 Follow up: Response: No adverse reaction; IV Status: Completed infusion; IV Intake: tw2 500ml Disposition: 12/09/19 12:43 Discharged to Home. Impression: Nausea and vomiting, Hyperglycemia, unspecified, Diabetes mellitus due to underlying condition, Dehydration. - Condition is Stable. - Discharge Instructions: Dehydration, Adult, Nausea and Vomiting, Adult, Bsmj-[id number], Blood Glucose Monitoring, Adult, Hyperglycemia, Zzvw-[id number]. - Prescriptions for Zofran 4 mg Oral Tablet - take 1 tablet by ORAL route every 4-6 hours As needed; 15 tablet. - Medication Reconciliation Form, Thank You Letter form. - Follow up: Private Physician; When: 2 - 3 days; Reason: If symptoms return, Further diagnostic work-up, Recheck today's complaints, Continuance of care, Re-evaluation by your physician. - Problem is new. - Symptoms are resolved. Signatures: Dispatcher [employer] EDGA Yosi Pacheco MD MD kdr Donna Hernandez RN RN tw2 Corrections: (The following items were deleted from the chart) 10:08 09:21 Social history: Smoking status: tw2 tw 13:00 12:43 12/09/2019 12:43 Discharged to Home. Impression: Nausea and vomiting; tw2 Hyperglycemia, unspecified; Diabetes mellitus due to underlying condition; Dehydration. Condition is Stable. Forms are Medication Reconciliation Form, Thank You Letter, Antibiotic Education, Prescription Opioid Use. Follow up: Private Physician; When: 2 - 3 days; Reason: If symptoms return, Further diagnostic work-up, Recheck today's complaints, Continuance of care, Re-evaluation by your physician. Problem is new. Symptoms are resolved. kdr
[2019-12-09 13:27] VITALS: BP 120/78; TEMP 98; O2SAT 100
--- NOTE | 2019-12-10 07:54 | EKG ---
Test Date: 2019-12-09 Test Time: 09:26:39 Web Knitter: MIGUEL MEASUREMENT RESULTS: Intervals: Rate: 81 GA: 194 QRSD: 88 QT: 422 QTc: 490 [place]: P: 20 GA: 194 QRS: 45 T: 59 INTERPRETIVE STATEMENTS: Normal sinus rhythm Nonspecific T wave abnormality Prolonged QT Abnormal ECG Compared to ECG 09/12/2019 09:54:15 T-wave abnormality now present Electronically Signed On 12-10-19 07:52:00 CONDUIT CLEANER by Kip Judd
== END 2019-12-09 13:00 | disposition home or self-care (01) ==
LOC: ER 09:16
DX: E86.0 Dehydration (principal); E11.65 Type 2 diabetes mellitus with hyperglycemia; J44.9 Chronic obstructive pulmonary disease, unspecified
CPT/HCPCS: 36415; 71045; 80048; 80076; 83735; 83880; 84484; 85025; 85610; 93005; 96361; 96374; 99285; J2405; J7040

== ENCOUNTER 2020-10-12 04:19 | Emergency (ER) | payer SELFPAY ==
--- OUTSIDE RECORDS SUMMARY | 2020-10-12 04:22 | XMS REPORT | Continuity of Care Document ---
:1975 Author Organization [facility] t Address [address] [place] [address] Care Team Providers Name Role Phone Asked, No Pcp Primary Care Physician Unavailable Jerad Mcdonald Attending Clinician Problems Condition Condition Condition Status Onset Resolution Last Treating Co mments Source Name Details Category Date Date Treatment Clinician Date Chest pain Chest pain Disease Active H nestor 05-01 Methodi 00:00: st 00 Allergies, Adverse Reactions, Alerts This patient has no known allergies or adverse reactions. Social History Social Habit Start Date Stop Date Quantity Comments Source Sex Assigned At [facility] ethodist Alcohol intake 2017-05-01 2017-05-01 Current drinker [place] [facility] 00:00:00 00:00:00 of alcohol (finding) Smoking Status Start Date Stop Date Source Current every day smoker 2017-05-01 00:00:00 Eric Norman Medications Ordered Filled Start Stop Current Ordering Indication Dosage Frequency Signature Comments Components Source Medication Medication Date Date Medication? Clinician (SIG) Name Name escitalopra Yes 20mg QD Take 20 mg Mauricio (LEXAPRO) 7-18 by mouth Meth mildred 20 MG 17:30: daily. st tablet 23 LORAZepam Yes .5mg Q6H Take 0.5 [place] (ATIVAN) 7-18 mg by Methodi 0.5 MG 17:30: mouth st tablet 23 every 6 (six) hours as needed for anxiety. metFORMIN 2016- Yes 1000mg Q.5D Take 1,000 Mauricio (GLUCOPHAGE 7-18 mg by Methodi ) 1,000 mg 17:30: mouth 2 st tablet 23 (two) times a day. nicotine 2016- Yes 1{patch Q24H Place 1 Eric lebron (NICODERM 7-18 } patch on Method i CQ) 21 17:30: the skin st mg/24 hr 23 daily. Procedures This patient has no known procedures. Plan of Care Planned Activity Planned Date Details Comments Source Future Scheduled 2020-05-20 INFLUENZA VACCINE Tootie cain [facility] Test 00:00:00 [code = INFLUENZA VACCINE] Future Scheduled 1991 COVID-19 VACCINE Mauricio [facility] Test 00:00:00 (#1) [code = COVID-19 VACCINE (#1)] Encounters Start End Encounter Admission Attending Care Care Encounter Source Date/Time Date/Time Type Type Clinicians Facility Department ID 2019-12-28 2019-12-28 Emergency [facility] [id number] 18:15:10 20:22:00 [place] [id number] [place] [id number] [place] [id number] Results This patient has no known results.
--- OUTSIDE RECORDS SUMMARY | 2020-10-12 04:22 | XMS REPORT | Clinical Summary ---
:1975 Author Organization [facility] Address [address] [place] [address] Care Team Providers Name Role Phone Asked, No Pcp Primary Care Provider Unavailable Allergies No Known Active Allergies Medications Medication Sig Dispensed Refills Start Date End Date Status escitalopram (LEXAPRO) Take 20 mg by 0 Active 20 MG tablet mouth daily. LORAZepam (ATIVAN) 0.5 Take 0.5 mg by 0 Active MG tablet mouth every 6 (six) hours as needed for anxiety. metFORMIN (GLUCOPHAGE) Take 1,000 mg by 0 Active 1,000 mg tablet mouth 2 (two) times a day. nicotine (NICODERM CQ) Place 1 patch on 0 Active 21 mg/24 hr the skin daily. Active Problems Problem Noted Date Chest pain 05/01/2017 Medical History Medical History Date Comments CHF (congestive heart failure) (HCC) Hypertension Renal disorder Diabetes mellitus (HCC) Social History Tobacco Use Types Packs/Day Years Used Date Current Every Day Smoker Alcohol Use Drinks/Week oz/Week Comments Yes Sex Assigned at Date Recorded Not on file Last Filed Vital Signs Not on file Plan of Treatment Health Maintenance Due Date Last Done Comments COVID-19 VACCINE (#1) 1991 INFLUENZA VACCINE 05/20/2020 Results Not on fileafter 10/12/2019 Advance Directives For more information, please contact: [phone] Type Date Recorded Patient Credit Relationship Manager Explanati on Advance Directives, Living Will and Medical Power of Special Education Supervisor Code Status Date Activated Date Inactivated Comments Full Code 05/01/2017 3:04 PM 05/06/2017 9:35 PM Code Status decision reached by: Patient
[2020-10-12] MEDS ORDERED: METOPROLOL TAR 25 MG TAB ONE (05:02)
[2020-10-12] MEDS ORDERED: IPRATROPIUM BROM 0.5MG/2.5ML ONE (05:02)
[2020-10-12] MEDS ORDERED: predniSONE 20 MG TAB ONE (05:03)
[2020-10-12] MEDS ORDERED: DIAZEPAM 2 MG TABLET ONE (05:09)
[2020-10-12] MEDS ORDERED: FUROSEMIDE 40 MG TABLET ONE (05:10)
[2020-10-12] MEDS ORDERED: DIAZEPAM 5 MG TABLET ONE (05:11)
[2020-10-12 05:17] LABS: Absolute Lymphocytes (CBC) 1.9 K/uL (0.7-4.9); Basophils % 0.9 % (0-1.3); Hematocrit 39.6 % (39.6-49.0); Lymphocytes % 16.1 % (15.3-44.8); MPV 8.8 fL (7.6-11.3); RBC Red Blood Cell Count 4.55 M/uL (4.33-5.43)
[2020-10-12 05:19] LABS: Protime INR 1.03
[2020-10-12 05:45] LABS: ALT/SGPT 34 U/L (12-78); AST/SGOT 24 U/L (15-37); Albumin 3.3 g/dL (3.4-5.0); Alkaline Phosphatase 126 U/L (45-117); BUN Blood Urea Nitrogen 30 mg/dL (7-18); Bicarbonate 22 mmol/L (21-32); Bilirubin Direct < 0.1 mg/dL (0-0.2); Bilirubin Total 0.5 mg/dL (0.2-1.0); Glucose Level 330 mg/dL (74-106); Magnesium 2.1 mg/dL (1.8-2.4); NT PRO-BNP 1791 pg/mL (<125); Potassium 3.8 mmol/L (3.5-5.1); Protein, Total 8.5 g/dL (6.4-8.2); Sodium Level 135 mmol/L (136-145); Troponin (Emerg Dept Use Only) 0.02 ng/mL (0.0-0.045)
[2020-10-12] MEDS ORDERED: FUROSEMIDE 20 MG/ 2ML VIAL ONE (06:21)
[2020-10-12] MEDS ORDERED: HYDRALAZINE HCL 20 MG/ML VIAL ONE (06:22)
--- NOTE | 2020-10-12 06:30 | ER ---
Nurse's Notes [facility] Name: Seth Smith Age: 45 yrs Sex: Male : 1975 Arrival Date: 10/12/2020 Time: 04:21 Bed 13 Private MD: Diagnosis: Chronic systolic (congestive) heart failure Presentation: 10/12 04:32 Chief complaint: Patient states: NOT COMPLIANT WITH MEDICATION. HAS NOT BEEN TAKING IT rv FOR TWO WEEKS, OUT OF PRESCRIPTION REFILLS. Coronavirus screen: Client denies travel out of the [place] in the last 14 days. shortness of breath, Client presents with at least one sign or symptom that may indicate coronavirus-19. Standard/surgical mask placed on the client. Provider contacted for isolation considerations. Ebola Screen: No symptoms or risks identified at this time. Initial Sepsis Screen: Does the patient meet any 2 criteria? No. Patient's initial sepsis screen is negative. Does the patient have a suspected source of infection? No. Patient's initial sepsis screen is negative. Risk Assessment: Do you want to hurt yourself or someone else? Patient reports no desire to harm self or others. Onset of symptoms is unknown. 04:32 Method Of Arrival: Ambulatory rv 04:32 Acuity: MARKUS 3 rv Triage Assessment: 04:35 General: Appears uncomfortable, Behavior is calm. Pain: Denies pain. EENT: No signs rv and/or symptoms were reported regarding the EENT system. Neuro: Level of Consciousness is awake, alert, obeys commands, Oriented to person, place, time, situation. Cardiovascular: Patient's skin is warm and dry. Respiratory: Reports shortness of breath at rest Breath sounds with crackles bilaterally. Onset: The symptoms/episode began/occurred gradually, the patient has mild shortness of breath. Derm: Skin is intact. Historical: - Allergies: 04:35 Ativan; rv 04:35 Dilantin; rv - PMHx: 04:35 CHF; COPD; Diabetes - NIDDM; Seizures; rv - PSHx: 04:35 None; rv - Immunization history:: Adult Immunizations up to date. - Social history:: Smoking status: Patient reports the use of cigarette tobacco products, smokes one pack cigarettes per day. Patient/guardian denies using alcohol, street drugs, The patient lives with family. - Family history:: not pertinent. Screenin:35 Abuse screen: Denies threats or abuse. Nutritional screening: No deficits noted. jb4 Tuberculosis screening: No symptoms or risk factors identified. Fall Risk None identified. Assessment: 04:35 General: Appears distressed, uncomfortable, Behavior is calm, cooperative, appropriate jb4 for age. Pain: Denies pain. Neuro: Level of Consciousness is awake, alert, obeys commands, Oriented to person, place, time, situation. Cardiovascular: Patient's skin is warm and dry. Respiratory: Airway is patent Respiratory effort is even, labored, Respiratory pattern is symmetrical, tachypnea Breath sounds with wheezes bilaterally. GI: No signs and/or symptoms were reported involving the gastrointestinal system. : No signs and/or symptoms were reported regarding the genitourinary system. EENT: No signs and/or symptoms were reported regarding the EENT system. Derm: Skin is intact, Skin is pink, warm \T\ dry. Musculoskeletal: Circulation, motion, and sensation intact. Range of motion: intact in all extremities. 05:20 Reassessment: Patient appears in no apparent distress at this time. Patient and/or jb4 family updated on plan of care and expected duration. Pain level reassessed. Patient is alert, oriented x 3, equal unlabored respirations, skin warm/dry/pink. 05:20 Respiratory: Airway is patent Respiratory effort is even, unlabored, Respiratory jb4 pattern is regular, symmetrical, Breath sounds are clear bilaterally. 06:21 Reassessment: Patient appears in no apparent distress at this time. Patient and/or jb4 family updated on plan of care and expected duration. Pain level reassessed. Patient is alert, oriented x 3, equal unlabored respirations, skin warm/dry/pink. Vital Signs: 04:32 BP 208 / 128; Pulse 107; Resp 27; Temp 98.5; Pulse Ox 99% on R/A; Weight 113.4 kg; rv Height 5 ft. 11 in. (180.34 cm); Pain 0/10; 05:30 BP 218 / 130; Pulse 100; Resp 20; Pulse Ox 98% on R/A; jb4 06:20 BP 178 / 99; Pulse 94; Resp 16; Pulse Ox 98% on R/A; jb4 04:32 Body Mass Index 34.87 (113.40 kg, 180.34 cm) rv ED Course: 04:21 Patient arrived in ED. bp1 04:34 Cortez Galloway MD is Attending Physician. ma2 04:34 Triage completed. rv 04:35 Patient has correct armband on for positive identification. Bed in low position. Call jb4 light in reach. Side rails up X 1. Pulse ox on. NIBP on. 04:36 Arm band placed on right wrist. Patient placed in the treatment room, on a stretcher, rv Patient notified of wait time. 04:42 XRAY Chest (1 view) In Process Unspecified. EDMS 04:50 Initial lab(s) drawn, by me, sent to lab. Inserted saline lock: 20 gauge in right jb4 antecubital area, using aseptic technique. Blood collected. 04:53 Dany Caldwell, CAROLA is Primary Nurse. jb4 06:45 No provider procedures requiring assistance completed. jb4 06:45 intact, bleeding controlled, No redness/swelling at site. Pressure dressing applied. jb4 Administered Medications: 04:50 Drug: Metoprolol 25 mg {Note: Administered by CAROLA Strauss.} Route: PO; jb4 06:00 Follow up: Response: No adverse reaction jb4 04:50 Drug: AtroVENT Aerosol 0.5 mg {Note: Administered by Rica RN.} Route: Inhalation; jb4 05:30 Follow up: Response: No adverse reaction; Wheezing diminished jb4 04:50 Drug: predniSONE 60 mg {Note: Administered by Rica RN.} Route: PO; jb4 06:00 Follow up: Response: No adverse reaction jb4 04:59 Drug: LaSIX 40 mg Route: PO; jb4 06:00 Follow up: Response: No adverse reaction jb4 04:59 Drug: Valium 10 mg Route: PO; jb4 06:00 Follow up: Response: No adverse reaction; Marked relief of symptoms jb4 05:57 Not Given (Pt reports adverse reaction and refuses): Ativan 1 mg IVP once jb4 06:11 Drug: Lasix 20 mg Route: IVP; Site: right antecubital; jb4 06:46 Follow up: Response: No adverse reaction jb4 06:15 Drug: hydrALAZINE 10 mg Route: IV; Rate: calculated rate; Site: right antecubital; jb4 06:20 Follow up: Response: No adverse reaction; Blood pressure is lowered; IV Status: jb4 Completed infusion; IV Intake: 10ml Intake: 06:20 IV: 10ml; Total: 10ml. jb4 Outcome: 06:29 Discharge ordered by . rashawn 06:45 Discharged to home ambulatory. jb4 06:45 Condition: stable 06:45 Discharge instructions given to patient, Instructed on discharge instructions, follow up and referral plans. no drinking with medication, medication usage, Demonstrated understanding of instructions, follow-up care, medications, Prescriptions given X 7 06:48 Patient left the ED. jb4 Signatures: Dispatcher [employer] EDDany Lawrence RN RN jbCortez Lim MD MD ma2 Vicente, Ronaldo, RN RN Jessy French [facility]
--- NOTE | 2020-10-12 06:31 | EDPHYS ---
Physician Documentation [facility] Name: Seth Smith Age: 45 yrs Sex: Male : 1975 Arrival Date: 10/12/2020 Time: 04:21 Bed 13 Private MD: ED Physician Cortez Galloway HPI: 10/12 04:56 This 45 yrs old Male presents to ER via Ambulatory with complaints of ma2 Breathing Difficulty, Shortness Of Breath. 04:56 This 45 yrs old Male presents to ER via Ambulatory with complaints of ma2 Breathing Difficulty, Shortness Of Breath. 04:56 The patient has shortness of breath during heavy activity. Onset: The symptoms/episode ma2 began/occurred gradually, 1 week(s) ago. Associated signs and symptoms: Pertinent negatives: productive cough, fever, hemoptysis, numbness in extremities, visual changes. Severity of symptoms: At their worst the symptoms were mild in the emergency department the symptoms are unchanged. The patient has experienced similar episodes in the past. Historical: - Allergies: 04:35 Ativan; rv 04:35 Dilantin; rv - PMHx: 04:35 CHF; COPD; Diabetes - NIDDM; Seizures; rv - PSHx: 04:35 None; rv - Immunization history:: Adult Immunizations up to date. - Social history:: Smoking status: Patient reports the use of cigarette tobacco products, smokes one pack cigarettes per day. Patient/guardian denies using alcohol, street drugs, The patient lives with family. - Family history:: not pertinent. ROS: 04:56 Constitutional: Negative for fever, chills, and weight loss. ma2 04:56 All other systems are negative. Exam: 04:56 Constitutional: This is a well developed, well nourished patient who is awake, alert, ma2 and in no acute distress. Head/Face: Normocephalic, atraumatic. Eyes: Pupils equal round and reactive to light, extra-ocular motions intact. Lids and lashes normal. Conjunctiva and sclera are non-icteric and not injected. Cornea within normal limits. Periorbital areas with no swelling, redness, or edema. ENT: Nares patent. No nasal discharge, no septal abnormalities noted. Tympanic membranes are normal and external auditory canals are clear. Oropharynx with no redness, swelling, or masses, exudates, or evidence of obstruction, uvula midline. Mucous membranes moist. Neck: Trachea midline, no thyromegaly or masses palpated, and no cervical lymphadenopathy. Supple, full range of motion without nuchal rigidity, or vertebral point tenderness. No Meningismus. Chest/axilla: Normal chest wall appearance and motion. Nontender with no deformity. No lesions are appreciated. Cardiovascular: Regular rate and rhythm with a normal S1 and S2. No gallops, murmurs, or rubs. Normal PMI, no JVD. +LE edema,No pulse deficits. Respiratory: Lungs have equal breath sounds bilaterally, has bilat basal rales and wheezes noted. No increased work of breathing, no retractions or nasal flaring. Abdomen/GI: Soft, non-tender, with normal bowel sounds. No distension or tympany. No guarding or rebound. No evidence of tenderness throughout. Back: No spinal tenderness. No costovertebral tenderness. Full range of motion. Skin: Warm, dry with normal turgor. Normal color with no rashes, no lesions, and no evidence of cellulitis. MS/ Extremity: Pulses equal, no cyanosis. Neurovascular intact. Full, normal range of motion. Neuro: Awake and alert, GCS 15, oriented to person, place, time, and situation. Cranial nerves II-XII grossly intact. Motor strength 5/5 in all extremities. Sensory grossly intact. Cerebellar exam normal. Normal gait. Vital Signs: 04:32 BP 208 / 128; Pulse 107; Resp 27; Temp 98.5; Pulse Ox 99% on R/A; Weight 113.4 kg; rv Height 5 ft. 11 in. (180.34 cm); Pain 0/10; 05:30 BP 218 / 130; Pulse 100; Resp 20; Pulse Ox 98% on R/A; jb4 06:20 BP 178 / 99; Pulse 94; Resp 16; Pulse Ox 98% on R/A; jb4 04:32 Body Mass Index 34.87 (113.40 kg, 180.34 cm) rv MDM: 04:25 Patient medically screened. ma2 04:56 Differential diagnosis: Anemia asthma, Bronchitis Psychogenic pulmonary edema, reactive ma2 airway disease. 06:28 Data reviewed: vital signs, nurses notes. Counseling: I had a detailed discussion with ma2 the patient and/or guardian regarding: the historical points, exam findings, and any diagnostic results supporting the discharge/admit diagnosis, the presence of at least one elevated blood pressure reading (>120/80) during this emergency department visit, the need for outpatient follow up. Response to treatment: the patient's symptoms have mildly improved after treatment. 06:30 ED course: patient feels better he want to go home, his vs and bp has improved, henever rashawn had chest pain, he is out of all his medications and he had anxiety today.. he will return to er if symptoms worsen . 10/12 04:26 Order name: Basic Metabolic Panel; Complete Time: 05:50 ma2 10/12 04:26 Order name: CBC with Diff; Complete Time: 05:50 10/12 04:26 Order name: LFT's; Complete Time: 05:50 10/12 04:26 Order name: Magnesium; Complete Time: 05:50 10/12 04:26 Order name: NT PRO-BNP; Complete Time: 05:50 10/12 04:26 Order name: PT-INR; Complete Time: 05:50 10/12 04:26 Order name: Troponin (emerg Dept Use Only); Complete Time: 05:50 ma2 10/12 04:26 Order name: XRAY Chest (1 view) mo10/12 04:26 Order name: EKG; Complete Time: 04:27 10/12 04:26 Order name: Cardiac monitoring; Complete Time: 04:53 10/12 04:26 Order name: EKG - Nurse/Tech; Complete Time: 04:43 10/12 04:26 Order name: IV Saline Lock; Complete Time: 04:53 10/12 04:26 Order name: Labs collected and sent; Complete Time: 04:53 10/12 04:26 Order name: O2 Per Protocol; Complete Time: :53 10/12 04:26 Order name: O2 Sat Monitoring; Complete Time: 04:53 ma2 Administered Medications: 04:50 Drug: Metoprolol 25 mg {Note: Administered by CAROLA Strauss.} Route: PO; 4 06:00 Follow up: Response: No adverse reaction 04:50 Drug: AtroVENT Aerosol 0.5 mg {Note: Administered by CAROLA Strauss.} Route: Inhalation; jb4 05:30 Follow up: Response: No adverse reaction; Wheezing diminished jb4 04:50 Drug: predniSONE 60 mg {Note: Administered by RN. Rica} Route: PO; jb4 06:00 Follow up: Response: No adverse reaction jb4 04:59 Drug: LaSIX 40 mg Route: PO; jb4 06:00 Follow up: Response: No adverse reaction jb4 04:59 Drug: Valium 10 mg Route: PO; jb4 06:00 Follow up: Response: No adverse reaction; Marked relief of symptoms jb4 05:57 Not Given (Pt reports adverse reaction and refuses): Ativan 1 mg IVP once jb4 06:11 Drug: Lasix 20 mg Route: IVP; Site: right antecubital; jb4 06:46 Follow up: Response: No adverse reaction jb4 06:15 Drug: hydrALAZINE 10 mg Route: IV; Rate: calculated rate; Site: right antecubital; jb4 06:20 Follow up: Response: No adverse reaction; Blood pressure is lowered; IV Status: jb4 Completed infusion; IV Intake: 10ml Disposition: 10/12/20 06:29 Discharged to Home. Impression: Chronic systolic (congestive) heart failure. - Condition is Stable. - Prescriptions for Coreg 3.125 mg Oral Tablet - take 1 tablet by ORAL route every 12 hours with food; 30 tablet. Metformin 500 mg Oral Tablet - take 1 tablet by ORAL route once daily for 7 days Then take 1 tablet with morning meals AND evening meals; 21 tablet. bumetanide 2 mg Oral Tablet - take 1 tablet by ORAL route once daily; 30 tablet. Entresto 49- 51 mg Oral tablet - take 1 tablet by ORAL route 2 times per day; 60 tablet. Hydroxyzine HCl 25 mg Oral Tablet - take 1 tablet by ORAL route every 6 hours As needed; 12 tablet. Albuterol Sulfate 2.5 mg /3 mL (0.083 %) Inhalation Solution for Nebulization - inhale 1 unit by NEBULIZATION route every 8 hours As needed; 1 box. Medrol (Rafat) 4 mg Oral Tablets, Dose Pack - take 1 tablet by ORAL route as directed - follow package instructions; 1 packet. - Medication Reconciliation Form, Thank You Letter, Antibiotic Education, Prescription Opioid Use form. - Follow up: Private Physician; When: Tomorrow; Reason: Continuance of care. Signatures: Dispatcher [employer] EDDany Lawrence RN RN jb4 Cortez Galloway MD MD ma2 Jg Can RN RN rv Corrections: (The following items were deleted from the chart) 06:48 06:29 10/12/2020 06:29 Discharged to Home. Impression: Chronic systolic (congestive) jb4 heart failure. Condition is Stable. Prescriptions for Coreg 3.125 mg Oral Tablet - take 1 tablet by ORAL route every 12 hours with food; 30 tablet, Metformin 500 mg Oral Tablet - take 1 tablet by ORAL route once daily for 7 days Then take 1 tablet with morning meals AND evening meals; 21 tablet, bumetanide 2 mg Oral Tablet - take 1 tablet by ORAL route once daily; 30 tablet, Entresto 49-51 mg Oral tablet - take 1 tablet by ORAL route 2 times per day; 60 tablet, Hydroxyzine HCl 25 mg Oral Tablet - take 1 tablet by ORAL route every 6 hours As needed; 12 tablet. and Forms are Medication Reconciliation Form, Thank You Letter, Antibiotic Education, Prescription Opioid Use. Follow up: Private Physician; When: Tomorrow; Reason: Continuance of care. ma2
[2020-10-12 06:58] VITALS: TEMP 98.5
[2020-10-12 06:59] VITALS: O2SAT 98
[2020-10-12 07:01] VITALS: BP 178/99
--- NOTE | 2020-10-12 08:26 | RAD REPORT ---
EXAM DESCRIPTION: Jessie Single View10/12/2020 4:40 am CLINICAL HISTORY: Congestion COMPARISON: November 2019 FINDINGS: Mild bilateral pulmonary opacities. The heart is moderately to markedly enlarged IMPRESSION: These findings probably represent mild CHF
== END 2020-10-12 06:48 | disposition home or self-care (01) ==
LOC: ER 04:19
DX: I50.22 Chronic systolic (congestive) heart failure (principal); F17.210 Nicotine dependence, cigarettes, uncomplicated; Z88.8 Allergy status to other drugs, medicaments and biological substances
CPT/HCPCS: 36415; 71045; 80048; 80076; 83735; 83880; 84484; 85025; 85610; 93005; 96374; 96375; 99284; J0360; J1940; J7512

== ENCOUNTER 2020-11-19 15:08 | Inpatient (IN) | payer SELFPAY ==
--- OUTSIDE RECORDS SUMMARY | 2020-11-19 15:10 | XMS REPORT | Clinical Summary ---
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
--- OUTSIDE RECORDS SUMMARY | 2020-11-19 15:10 | XMS REPORT | Continuity of Care Document ---
:1975 Author Organization [facility] t Address [address] [place] [address] Care Team Providers Name Role Phone Asked, [...] Date Quantity Comments Source Sex Assigned At [facility] ethodist Alcohol intake 2017-05-01 2017-05-01 Current drinker [place] [facility] 00:00:00 00:00:00 of alcohol (finding) Smoking Status [...] Comments Source Future Scheduled 2020-05-20 INFLUENZA VACCINE [place] [facility] 00:00:00 [code = INFLUENZA VACCINE] Future Scheduled 1991 COVID-19 VACCINE (1 [place] [facility] Test 00:00:00 of 2) [code = COVID-19 VACCINE (1 of 2)] Encounters Start End Encounter Admission Attending Care Care Encounter Source Date/Time Date/Time Type Type Clinicians Facility Department ID 2019-12-28 2019-12-28 Emergency [facility] [id number] 18:15:10 20:22:00 [facility] [place] [id number] [place] [id number] [place] [id number] Results This patient has no known results.
--- NOTE | 2020-11-19 16:39 | RAD REPORT ---
EXAM DESCRIPTION: Jessie Single View11/19/2020 4:33 pm CLINICAL HISTORY: Chest pain COMPARISON: 30 September 2020 FINDINGS: The lungs appear clear of acute infiltrate. The heart is moderately enlarged. Upper lobe vessels are prominent indicative of pulmonary venous hypertension
[2020-11-19 16:47] LABS: Absolute Lymphocytes (CBC) 1.1 K/uL (0.7-4.9); Basophils % 0.5 % (0-1.3); Hematocrit 42.8 % (39.6-49.0); Lymphocytes % 5.3 % (15.3-44.8); MPV 8.8 fL (7.6-11.3); Protime INR 0.97; RBC Red Blood Cell Count 4.92 M/uL (4.33-5.43)
[2020-11-19 17:10] LABS: Albumin 3.8 g/dL (3.4-5.0); Bilirubin Direct 0.2 mg/dL (0-0.2); Bilirubin Total 0.7 mg/dL (0.2-1.0); Potassium 4.1 mmol/L (3.5-5.1); Protein, Total 9.4 g/dL (6.4-8.2); Troponin (Emerg Dept Use Only) 0.02 ng/mL (0.0-0.045)
[2020-11-19] MEDS ORDERED: LABETALOL 20 MG/4ML SYRINGE IV ONE (17:10)
[2020-11-19] MEDS ORDERED: METHYLPREDNISOLONE 125 MG INJ ONE (17:10)
[2020-11-19] MEDS ORDERED: CEFTRIAXONE/SWI 1gm 1 GM/10 ML SYR ONE (17:10)
[2020-11-19] MEDS ORDERED: NA CHLORIDE 0.9% 500 ML ONE (17:11)
[2020-11-19] MEDS ORDERED: carvediloL 6.25 MG TAB ONE (17:15)
[2020-11-19 17:35] LABS: Blood Morphology Comment NOT SEEN (NOT SEEN); Platelet Estimate ADEQ
[2020-11-19 18:08] LABS: Urine Blood 1+ (NEG); Urine Glucose 2+ (NEG); Urine Protein 3+ (NEG); Urine Specific Gravity 1.025 (1.005-1.030); Urine pH 5.5 (5.0-7.0)
[2020-11-19 18:32] LABS: SARS-COV-2 RT PCR NEGATIVE (NEGATIVE)
--- NOTE | 2020-11-19 18:34 | RAD REPORT ---
EXAM DESCRIPTION: CT - Chest For Pe Angio - 11/19/2020 6:10 pm CLINICAL HISTORY: sob COMPARISON: None. TECHNIQUE: Dynamically enhanced axial 3 mm thick images of the chest were obtained during administra tion of <100> mL Isovue 370 IV contrast. Coronal and oblique reconstruction images were generated and reviewed. Exam utilizes a protocol for optimal evaluation of pulmonary arterial tree. Maximum intensity projections 3D imaging was utilized All CT scans are performed using dose optimization technique as appropriate and may include automated exposure control or mA/KV adjustment according to patient size. FINDINGS: A pulmonary embolus is not seen. A thoracic aortic aneurysm is not noted. Main pulmonary artery is prominent which may indicate pulmon jimmy arterial hypertension A pleural effusion is not seen. A pericardial effusion is not seen. A lung consolidation is not present. The heart is enlarged IMPRESSION: Negative for a pulmonary embolism.
--- NOTE | 2020-11-19 19:00 | EDPHYS ---
Physician Documentation [facility] Name: Seth Smith Age: 45 yrs Sex: Male : 1975 Arrival Date: 11/19/2020 Time: 15:12 Bed 16 Private MD: ED Physician Cortez Galloway HPI: 11/19 16:45 This 45 yrs old Male presents to ER via Ambulatory with complaints of jmm Shortness Of Breath, Hand Swelling, fatigue. 16:45 The patient has shortness of breath at rest. Onset: The symptoms/episode began/occurred jmm today. The patient's shortness of breath is aggravated by exertion, light activity. Associated signs and symptoms: Pertinent positives: non-productive cough. This is a 45 year old male with a history of CHF, DM, epilepsy that presents to the ED with complaints of cough, shortness of breath, beginning this morning. Patient is concerned he may have covid 19. . Historical: - Allergies: 15:21 Dilantin; ll1 15:21 Ativan; ll1 - Home Meds: 16:39 Bumex Oral [Active]; Coreg 25 mg oral tab [Active]; Entresto Oral [Active]; hb - PMHx: 15:21 CHF; COPD; Diabetes - NIDDM; Seizures; ll1 - PSHx: 15:21 arm sx; ll1 - Immunization history:: Flu vaccine is not up to date. - Social history:: Smoking status: Patient reports the use of cigarette tobacco products, smokes one-half pack cigarettes per day. ROS: 16:45 Cardiovascular: Negative for chest pain, palpitations, and edema. jmm 16:45 Constitutional: Positive for body aches, chills, fatigue. 16:45 Respiratory: Positive for cough, shortness of breath. 16:45 All other systems are negative. Exam: 16:45 Head/Face: atraumatic. Eyes: EOMI, no conjunctival erythema appreciated ENT: Moist jmm Mucus Membranes Neck: Trachea midline, Supple Chest/axilla: Normal chest wall appearance and motion. 16:45 Skin: General appearance color normal MS/ Extremity: Moves all extremities, no obvious deformities appreciated, no edema noted to the lower extremities Neuro: Awake and alert, normal gait Psych: Behavior is normal, Mood is normal, Patient is cooperative and pleasant 16:45 Constitutional: The patient appears in no acute distress, alert, awake. 16:45 Cardiovascular: Rate: tachycardic, Rhythm: 16:45 Respiratory: moderate respiratory distress is noted, Respirations: labored breathing, that is mild, Breath sounds: are clear throughout. 16:45 Abdomen/GI: Inspection: abdomen appears normal, Bowel sounds: normal, Palpation: abdomen is soft and non-tender. Vital Signs: 15:18 BP 215 / 131; Pulse 125; Resp 18; Temp 99.0; Pulse Ox 97% on R/A; Weight 99.79 kg; ll1 Height 5 ft. 11 in. (180.34 cm); Pain 2/10; 15:21 BP 212 / 123; ll1 16:41 BP 208 / 122; Pulse 132; Resp 41; Pulse Ox 95% on R/A; hb 17:32 BP 188 / 134; Pulse 129; Resp 43; Pulse Ox 97% on R/A; hb 18:00 BP 212 / 143; Pulse 128; Resp 41; Pulse Ox 95% on R/A; hb 18:31 Pulse Ox 88% on R/A; sv 18:45 BP 210 / 121; Pulse 123; Resp 37; Pulse Ox 92% on 5 lpm NC; sv 15:18 Body Mass Index 30.68 (99.79 kg, 180.34 cm) ll1 18:31 Pt placed on O2 \T\ 5L per NC. O2 sat up to 92%. sv MDM: 15:38 Patient medically screened. [facility] 18:54 Data reviewed: vital signs, nurses notes. ED course: I discussed labs and imaging [facility] findings with the patient. Patient admitted to taking meth. I discussed the patient with Dr. Hauser whom accepted admission. . 11/19 15:44 Order name: Basic Metabolic Panel; Complete Time: 17:25 [facility] 11/19 15:44 Order name: CBC with Diff [facility] 11/19 15:44 Order name: LFT's; Complete Time: 17:25 [facility] 11/19 15:44 Order name: Magnesium; Complete Time: 17:25 [facility] 11/19 15:44 Order name: NT PRO-BNP; Complete Time: 17:25 [facility] 11/19 15:44 Order name: PT-INR; Complete Time: 16:53 [facility] 11/19 15:44 Order name: Troponin (emerg Dept Use Only); Complete Time: 17:25 [facility] 11/19 15:44 Order name: Procalcitonin; Complete Time: 17:25 [facility] 11/19 15:44 Order name: Lactate; Complete Time: 17:10 [facility] 11/19 15:44 Order name: Blood Culture Adult (2) [facility] 11/19 16:52 Order name: Urine Culture [facility] 11/19 17:36 Order name: Manual Differential; Complete Time: 17:36 [facility] 11/19 15:44 Order name: XRAY Chest (1 view) [facility] 11/19 17:53 Order name: Urine Dipstick--Ancillary (enter results) sp 11/19 17:54 Order name: Urine Dipstick-Ancillary; Complete Time: 18:08 [facility] 11/19 18:33 Order name: COVID-19/FLU A+B; Complete Time: 18:38 [facility] 11/19 18:41 Order name: Urine Drug Screen [facility] 11/19 19:48 Order name: Urinalysis [facility] 11/19 19:48 Order name: CBC with Automated Diff [facility] 11/19 19:49 Order name: CBC with Automated Diff [facility] 11/19 19:49 Order name: Comprehensive Metabolic Panel [facility] 11/19 19:49 Order name: Comprehensive Metabolic Panel [facility] 11/19 21:57 Order name: Glucose, Ancillary Testing; Complete Time: 22:03 [facility] 11/20 07:51 Order name: Glucose, Ancillary Testing [facility] 11/20 10:26 Order name: Hemoglobin A1c [facility] 11/20 10:28 Order name: T4 Free [facility] 11/20 10:28 Order name: Thyroid Stimulating Hormone [facility] 11/20 12:10 Order name: Glucose, Ancillary Testing [facility] 11/19 15:44 Order name: EKG; Complete Time: 15:45 [facility] 11/19 15:44 Order name: Cardiac monitoring; Complete Time: 16:38 [facility] 11/19 15:44 Order name: EKG - Nurse/Tech; Complete Time: 16:38 [facility] 11/19 15:44 Order name: IV Saline Lock; Complete Time: 16:38 [facility] 11/19 15:44 Order name: Labs collected and sent; Complete Time: 16:38 [facility] 11/19 15:44 Order name: O2 Per Protocol; Complete Time: 16:38 [facility] 11/19 15:44 Order name: O2 Sat Monitoring; Complete Time: 16:38 [facility] 11/19 16:41 Order name: RAD; Complete Time: 16:44 [facility] 11/19 16:52 Order name: Urine Dipstick-Ancillary (obtain specimen); Complete Time: 17:44 [facility] 11/19 17:27 Order name: CT Chest For PE Angio; Complete Time: 18:38 [facility] 11/19 19:48 Order name: CONS Pharmacy Consult [facility] 11/19 19:48 Order name: Heart Healthy [facility] Administered Medications: 17:02 Drug: SOLU-Medrol 125 mg Route: IVP; Site: left antecubital; hb 17:34 Follow up: Response: No adverse reaction hb 17:02 Drug: Rocephin 1 grams Route: IV; Rate: calculated rate; Site: left antecubital; hb 17:04 Follow up: IV Status: Completed infusion; IV Intake: 10ml hb 17:42 Follow up: Response: No adverse reaction hb 17:03 Drug: NS 0.9% 500 ml Route: IV; Rate: bolus; Site: left antecubital; hb 11/20 02:19 Follow up: Response: No adverse reaction; IV Status: Completed infusion 11/19 17:03 Drug: Labetalol 5 mg Route: IVP; Site: left antecubital; hb 17:34 Follow up: Response: No adverse reaction hb 17:04 Drug: Coreg 25 mg Route: PO; hb 17:45 Follow up: Response: No adverse reaction hb 19:02 Drug: Valium 5 mg Route: IVP; Site: left antecubital; hb 11/20 02:19 Follow up: Response: No adverse reaction; RASS: Alert and Calm (0) Disposition: 18:31 Co-signature as Attending Physician, Cortez Galloway MD. ny2 Disposition: 11/19/20 18:59 Hospitalization ordered by Ihsan Hauser for Observation. Preliminary diagnosis are Hypertension, Dyspnea, Methamphetamine Abuse. - Bed requested for [facility] ER HOLD. - Status is Observation. jd3 - Condition is Stable. - Problem is new. - Symptoms are unchanged. Signatures: [facility] Debra Turner RN RN mw Mickail, Joel, PA PA Cristina Wilson RN RN Tank Serrato RN RN jd3 Cortez Galloway MD MD ma2 Ramesh Brennan RN RN 1 Romina Pizano RN Corrections: (The following items were deleted from the chart) 11/19 17:05 16:53 Urine Culture+BA.LAB.BRZ ordered. EDMS EDMS 17:39 15:46 Influenza Screen (A \T\ B)+BA.LAB.BRZ ordered. EDMS EDMS 17:39 15:46 CORONAVIRUS+MR.LAB.BRZ ordered. EDHI EDMS 19:30 18:59 Hospitalization Ordered by Ihsan Hauser MD for Observation. Preliminary diagnosis is Hypertension; Dyspnea; Methamphetamine Abuse. Bed requested for Telemetry/MedSurg (observation). Status is Observation. Condition is Stable. Problem is new. Symptoms are unchanged. [facility] 11/20 13:23 11/19 19:30 11/19/2020 18:59 Hospitalization Ordered by Ihsan Hauser MD for jd3 Observation. Preliminary diagnosis is Hypertension; Dyspnea; Methamphetamine Abuse. Bed requested for [facility] ER HOLD. Status is Observation. Condition is Stable. Problem is new. Symptoms are unchanged. mw
--- NOTE | 2020-11-19 19:00 | ER ---
Nurse's Notes [facility] Name: Seth Smith Age: 45 yrs Sex: Male : 1975 Arrival Date: 11/19/2020 Time: 15:12 Bed 16 Private MD: Diagnosis: Hypertension;Dyspnea;Methamphetamine Abuse Presentation: 11/19 15:18 Chief complaint: Patient states: SOB, cough, fatigue, weak since 1000 today. + chills, ll1 unknown fever. Hasn't taken BP medication today. Coronavirus screen: Client denies travel out of the [place] in the last 14 days. chills, congestion, cough unrelated to allergies, difficulty breathing, fatigue, headache, muscle pain, runny nose, shaking with chills, shortness of breath, Client presents with at least one sign or symptom that may indicate coronavirus-19. Standard/surgical mask placed on the client. Ebola Screen: Patient denies travel to an Ebola-affected area in the 21 days before illness onset. Initial Sepsis Screen: Does the patient meet any 2 criteria? HR > 90 bpm. No. Patient's initial sepsis screen is negative. Does the patient have a suspected source of infection? Yes: Productive cough/pneumonia. Risk Assessment: Do you want to hurt yourself or someone else? Patient reports no desire to harm self or others. Onset of symptoms was November 19, 2020. 15:18 Method Of Arrival: Ambulatory ll1 15:18 Acuity: MARKUS 2 ll1 Historical: - Allergies: 15:21 Dilantin; ll1 15:21 Ativan; ll1 - Home Meds: 16:39 Bumex Oral [Active]; Coreg 25 mg oral tab [Active]; Entresto Oral [Active]; hb - PMHx: 15:21 CHF; COPD; Diabetes - NIDDM; Seizures; ll1 - PSHx: 15:21 arm sx; ll1 - Immunization history:: Flu vaccine is not up to date. - Social history:: Smoking status: Patient reports the use of cigarette tobacco products, smokes one-half pack cigarettes per day. Screenin:38 Abuse screen: Denies threats or abuse. Denies injuries from another. Nutritional hb screening: No deficits noted. Tuberculosis screening: No symptoms or risk factors identified. Fall Risk None identified. Assessment: 16:02 General: Appears distressed, Behavior is calm, cooperative. Pain: Pain currently is 2 hb out of 10 on a pain scale. Neuro: Level of Consciousness is awake, alert, obeys commands, Oriented to person, place, time, situation. Cardiovascular: Capillary refill < 3 seconds Patient's skin is warm and dry. Rhythm is sinus tachycardia. Respiratory: Reports shortness of breath at rest cough that is non-productive, Respiratory effort is labored, Respiratory pattern is tachypnea. GI: No signs and/or symptoms were reported involving the gastrointestinal system. : No signs and/or symptoms were reported regarding the genitourinary system. EENT: No signs and/or symptoms were reported regarding the EENT system. Derm: Skin is dry, Skin is dusky, pale, Skin temperature is warm. Musculoskeletal: No signs and/or symptoms reported regarding the musculoskeletal system. 17:04 Reassessment: No changes from previously documented assessment. Patient and/or family hb updated on plan of care and expected duration. Pain level reassessed. 17:59 Reassessment: No changes from previously documented assessment. Patient and/or family hb updated on plan of care and expected duration. Pain level reassessed. Vital Signs: 15:18 BP 215 / 131; Pulse 125; Resp 18; Temp 99.0; Pulse Ox 97% on R/A; Weight 99.79 kg; ll1 Height 5 ft. 11 in. (180.34 cm); Pain 2/10; 15:21 BP 212 / 123; ll1 16:41 BP 208 / 122; Pulse 132; Resp 41; Pulse Ox 95% on R/A; hb 17:32 BP 188 / 134; Pulse 129; Resp 43; Pulse Ox 97% on R/A; hb 18:00 BP 212 / 143; Pulse 128; Resp 41; Pulse Ox 95% on R/A; hb 18:31 Pulse Ox 88% on R/A; sv 18:45 BP 210 / 121; Pulse 123; Resp 37; Pulse Ox 92% on 5 lpm NC; sv 15:18 Body Mass Index 30.68 (99.79 kg, 180.34 cm) ll1 18:31 Pt placed on O2 \T\ 5L per NC. O2 sat up to 92%. sv ED Course: 15:12 Patient arrived in ED. mr 15:20 Triage completed. ll1 15:21 Arm band placed on Patient placed in an exam room, on a stretcher. ll1 15:23 Jose Reeves PA is PHCP. [facility] 15:23 Cortez Galloway MD is Attending Physician. [facility] 15:58 Cristina Tong, RN is Primary Nurse. hb 16:13 First set of blood cultures drawn by me. Missed attempt(s): 20 gauge in right dh3 antecubital area. Bleeding controlled, band aid applied, catheter tip intact. 16:20 Missed attempt(s): 20 gauge in left antecubital area. Bleeding controlled, band aid dh3 applied, catheter tip intact. 16:32 Inserted saline lock: 20 gauge in left antecubital area, using aseptic technique. hb ,using aseptic technique. by Lila SRIVASTAVA Blood collected. 16:38 Patient has correct armband on for positive identification. Placed in gown. Bed in low hb position. Call light in reach. Side rails up X 1. 17:44 Urine Culture Sent. hb 18:10 CT Chest For PE Angio In Process Unspecified. EDMS 18:34 Urine Dipstick--Ancillary (enter results) Sent. sv 18:34 XRAY Chest (1 view) Sent. sv 18:58 Ihsan Hauser MD is Hospitalizing Provider. [facility] 19:07 Primary Nurse role handed off by Cristina Tong, CAROLA 2 19:31 Dany Caldwell, RN is Primary Nurse. [facility] 19:31 No provider procedures requiring assistance completed. Patient admitted, IV remains in jb4 place. 11/20 08:17 Primary Nurse role handed off by Dany Caldwell, RN bd Administered Medications: 11/19 17:02 Drug: SOLU-Medrol 125 mg Route: IVP; Site: left antecubital; hb 17:34 Follow up: Response: No adverse reaction hb 17:02 Drug: Rocephin 1 grams Route: IV; Rate: calculated rate; Site: left antecubital; hb 17:04 Follow up: IV Status: Completed infusion; IV Intake: 10ml hb 17:42 Follow up: Response: No adverse reaction hb 17:03 Drug: NS 0.9% 500 ml Route: IV; Rate: bolus; Site: left antecubital; hb 11/20 02:19 Follow up: Response: No adverse reaction; IV Status: Completed infusion wh 11/19 17:03 Drug: Labetalol 5 mg Route: IVP; Site: left antecubital; hb 17:34 Follow up: Response: No adverse reaction hb 17:04 Drug: Coreg 25 mg Route: PO; hb 17:45 Follow up: Response: No adverse reaction hb 19:02 Drug: Valium 5 mg Route: IVP; Site: left antecubital; hb 11/20 02:19 Follow up: Response: No adverse reaction; RASS: Alert and Calm (0) Intake: 11/19 17:04 IV: 10ml; Total: 10ml. hb Outcome: 18:59 Decision to Hospitalize by Provider. [facility] 19:31 Admitted to ER Hold. Please see [facility] for further documentation. jb4 19:31 Condition: stable 19:31 Discharge instructions given to patient, Instructed on the need for admit, Demonstrated understanding of instructions. 11/20 13:23 Patient left the ED. jd3 Signatures: Dispatcher [employer] EDMS Misty Zapien Stephanie, RN Jose Wilkerson PA PA [facility] [place] Cao mr Cristina Tong RN RN Dany Caldwell RN RN jb4 Latasha Mcmillan 3 Romina Pizano RN RN Tank Snow RN RN jd3 Ottoniel Madsen [facility] Ramesh Brennan, RN RN ll1 Corrections: (The following items were deleted from the chart) 11/19 15:29 15:18 Chief complaint: Patient states: SOB, cough, fatigue, weak since 1000 today. + ll1 chills, unknown fever. ll1
[2020-11-19] MEDS ORDERED: DIAZEPAM 10 MG/2 ML INJ SYRINGE ONE (19:14)
[2020-11-19] MEDS ORDERED: ALBUTEROL 2.5 MG/3 ML NEB SOL NEB PRN (19:38)
[2020-11-19] MEDS ORDERED: MORPHINE 2 MG/ML SYR IV PRN (19:38)
[2020-11-19] MEDS ORDERED: ACETAMINOPHEN 500 MG TAB PO PRN (19:38)
[2020-11-19] MEDS ORDERED: ONDANSETRON 4 MG/2 ML VIAL IV PRN (19:38)
[2020-11-19] MEDS: IPRATROPIUM BROM 0.5MG/2.5ML NEB SCH (20:00)
[2020-11-19 20:09] VITALS: BMI 30.7
--- NOTE | 2020-11-19 20:30 | P.HP ---
Certification for Inpatient Patient admitted to: Inpatient With expected LOS: >2 Midnights Practitioner: I am a practitioner with admitting privileges, knowledge of patient current condition, hospital course, and medical plan of care. Services: Services provided to patient in accordance with Admission requirements found in Title 42 Section 412.3 of the Code of Federal Regulations Patient History Date of Service: 11/19/20 Reason for admission: SOB History of Present Illness: 45 year-old male with past medical history of hypertension, diabetes, history of CHF, history of COPD, gout and arthritis came to ER with shortness of breath which started today and has been progressively worsening associated with nonproductive cough. Denies any chest pain. No fever or chills. Shortness of breath was insidious in onset and has been progressively worsening. He was worried about COVID 19 and was from came to ER. In the ER he was assessed and was found to have shortness of breath and accelerated hypertension and was admitted for further management Allergies No Known Drug Allergies Allergy (Unverified 03/24/15 22:51) Unknown Home medications list reviewed: Yes - Past Medical/Surgical History Diabetic: Yes Past Medical History: Reviewed- Non-Contributory -: Hypertension -: Diabetes -: Gout -: CHF -: COPD Past Surgical History: Reviewed- Non-Contributory -: Right Forearm - Family History Father -: Hypertension Mother -: Hypertension, Diabetes - Social History Smoking Status: Current every day smoker Alcohol use: No CD- Drugs: Yes Caffeine use: Yes Place of Residence: Home Review of Systems 10-point ROS is otherwise unremarkable Physical Examination - Vital Signs Temperature: 98.2 F Blood Pressure: 210/108 Pulse: 122 Respirations: 22 - Physical Exam General: Alert, Oriented x3, Mild distress HEENT: Atraumatic, Normocephalic Neck: Supple, 2+ carotid pulse no bruit Respiratory: Diminished, Crackles/rales Cardiovascular: Regular rate/rhythm, Normal S1 S2 Capillary refill: <2 Seconds Gastrointestinal: Soft and benign, W/out hepatosplenomegaly Musculoskeletal: No clubbing, No swelling Integumentary: No rashes Neurological: Normal speech, Normal strength at 5/5 x4 extr Lymphatics: No axilla or inguinal lymphadenopathy - Studies Laboratory Data (last 24 hrs) 11/19/20 16:32: PT 11.5, INR 0.97 11/19/20 16:32: WBC 21.30 H*, Hgb 14.6, Hct 42.8, Plt Count 205 11/19/20 16:32: Sodium 132 L, Potassium 4.1, BUN 21 H, Creatinine 1.47 H, Glucose 227 H, Magnesium 2.0, Total Bilirubin 0.7, AST 24, ALT 27, Alkaline Phosphatase 113 Assessment and Plan - Problems (Diagnosis) (1) Acute respiratory failure with hypoxia Current Visit: Yes Status: Acute (2) Accelerated hypertension Current Visit: Yes Status: Acute (3) Diabetes Current Visit: Yes Status: Chronic Qualifiers: Diabetes mellitus type: type 2 Diabetes mellitus complication status: with hyperglycemia (4) Leucocytosis Current Visit: Yes Status: Acute - Plan Acute CHF exacerbation possibly diastolic Acute hypoxic respiratory failure Accelerated hypertension COPD Hyponatremia Leukocytosis Acute renal insufficiency Elevated pro calcitonin level history substance abuse Smoker Plan Oxygen supplementation Will start on aggressive diuresis will get an echocardiogram antihypertensives titrated start on bronchodilators and steroids insulin sliding scale CT chest PE protocol is negative for PE given elevated pro calcitonin and leukocytosis start on empirical antibiotic to cover for CP Covid 19 test is negative Monitor renal parameters Electrolytes monitored replace accordingly Advised against smoking Continue home medications and titrate as needed GI/DVT prophylaxis - Advance Directives Does patient have a Living Will: No Does patient have a Durable POA for Healthcare: No Time Spent Managing Pts Care (In Minutes): 45
[2020-11-19] MEDS ORDERED: GLUCAGON 1 MG/VIAL IM PRN (20:45)
[2020-11-19] MEDS ORDERED: HYDRALAZINE HCL 20 MG/ML VIAL IV PRN (20:45)
[2020-11-19] MEDS ORDERED: D50W 25 GM/50 ML SYRINGE IV PRN (20:45)
[2020-11-19] MEDS: carvediloL 25 MG TAB PO SCH (20:45)
[2020-11-19] MEDS: INSULIN -REGULAR HUMAN 50 UNIT/0.5 ML ML SQ SCH (21:00)
[2020-11-19] MEDS ORDERED: ATORVASTATIN 40 MG TAB PO SCH (21:00)
[2020-11-19] MEDS ORDERED: INSULIN -REGULAR HUMAN 50 UNIT/0.5 ML ML ONE (22:05)
[2020-11-19] MEDS ORDERED: ATORVASTATIN 20 MG TAB ONE (22:06)
[2020-11-19] MEDS ORDERED: IPRATROPIUM BROM 0.5MG/2.5ML ONE (22:07)
[2020-11-19 22:21] VITALS: O2SAT 96
[2020-11-20] MEDS: METHYLPREDNISOLONE 40 MG INJ IV SCH ×2 (01:00→09:00)
[2020-11-20] MEDS: FUROSEMIDE 40 MG/4 ML VIAL IV SCH ×2 (01:00→09:00)
[2020-11-20] MEDS: IPRATROPIUM BROM 0.5MG/2.5ML NEB SCH ×2 (02:00→08:00)
[2020-11-20] MEDS ORDERED: METHYLPREDNISOLONE 40 MG INJ ONE ×2 (02:43→08:41)
[2020-11-20] MEDS ORDERED: FUROSEMIDE 40 MG/4 ML VIAL ONE ×2 (02:44→08:41)
[2020-11-20] MEDS ORDERED: carvediloL 25 MG TAB ONE (05:26)
[2020-11-20] MEDS: carvediloL 25 MG TAB PO SCH (05:29)
[2020-11-20 05:39] LABS: Absolute Lymphocytes (CBC) 0.6 K/uL (0.7-4.9); Basophils % 0.1 % (0-1.3); Lymphocytes % 3.9 % (15.3-44.8); MPV 9.6 fL (7.6-11.3); RBC Red Blood Cell Count 4.83 M/uL (4.33-5.43)
[2020-11-20 06:03] LABS: Albumin 3.4 g/dL (3.4-5.0); Bilirubin Total 0.7 mg/dL (0.2-1.0); Potassium 4.2 mmol/L (3.5-5.1); Protein, Total 8.8 g/dL (6.4-8.2)
[2020-11-20 06:16] VITALS: TEMP 97.8
[2020-11-20] MEDS: INSULIN -REGULAR HUMAN 50 UNIT/0.5 ML ML SQ SCH ×2 (07:30→11:30)
[2020-11-20] MEDS ORDERED: INSULIN -REGULAR HUMAN 50 UNIT/0.5 ML ML ONE ×2 (07:58→12:24)
--- NOTE | 2020-11-20 08:19 | EKG ---
Test Date: 2020-11-19 Test Time: 16:03:28 Carpet Installer: HB MEASUREMENT RESULTS: Intervals: Rate: 0 OK: QRSD: 0 QT: 0 QTc: 0 Challenge: P: OK: QRS: 0 T: 0 INTERPRETIVE STATEMENTS: No QRS complexes found, no ECG analysis possible Compared to ECG 10/12/2020 04:32:14 Sinus rhythm no longer present Prolonged QT interval no longer present Electronically Signed On 11-20-20 08:17:40 FINAL INSPECTOR PAPER by Kip Judd
[2020-11-20] MEDS ORDERED: ENOXAPARIN 40 MG/0.4 ML SQ ONE (08:41)
[2020-11-20] MEDS ORDERED: CEFTRIAXONE/SWI 1gm 1 GM/10 ML SYR ONE (08:41)
[2020-11-20] MEDS ORDERED: CEFTRIAXONE/SWI 1gm 1 GM/10 ML SYR IV SCH (09:00)
[2020-11-20] MEDS ORDERED: AZITHROMYCIN IV 500 MG in NA CHLORIDE 0.9% 250 ML IVPB SCH (09:00)
[2020-11-20] MEDS ORDERED: CEFTRIAXONE 1 GM/NS 50 ML 1 GM/50 ML BAG IV SCH (09:00)
[2020-11-20] MEDS ORDERED: ENOXAPARIN 40 MG/0.4 ML SQ SCH (09:00)
--- NOTE | 2020-11-20 09:37 | P.DS ---
Admission Date: 11/20/20 Discharge Date: 11/20/20 Primary Care Provider: Dr. Barragan Disposition: ROUTINE DISCHARGE Discharge Condition: GOOD Reason for Admission: SOB Consultations: none Procedures: COVID/Influenza: Negative CXR: No infiltrate. Cardiomegaly. CT scan: No infiltrate. No pulmonary embolus. Medical Problem List: Dyspnea secondary to acute on chronic systolic CHF Hypertension uncontrolled Diabetes mellitus type 2 with hyperglycemia Chronic renal disease stage III COPD History of tobacco and methamphetamine use Brief History of Present Illness: 45-year-old male with history of pulmonary hypertension, diabetes, CHF, COPD, gout and arthritis. Patient presented with increasing shortness of breath. Patient admitted running out of his medications. Patient also admits methamphetamine use. Blood pressures were elevated upon admission. Patient was admitted for further evaluation and treatment. Hospital Course: Patient presented with dyspnea. Patient ran out of his medications. Patient has history of systolic CHF and takes Entresto, Coreg, and Bumex. Patient admitted for further evaluation and treatment. Chest ray should note volume overload. CT scan shows no pulmonary embolism or pneumonia. Patient tested negative for COVID and influenza. White count was elevated but repeat improved. Patient has done well during course of his stay. Patient without significant shortness of breath at discharge. Patient admitted methamphetamine use. Tobacco cessation and methamphetamine cessation addressed in detail. At discharge patient will continue with his current medications of Entresto 49/51 mg 1 pill twice daily, carvedilol 25 mg 1 pill twice daily, and Bumex 2 mg daily. Patient will also continue with ASA 81 mg daily. Patient will continue with a 1500 cc per day fluid restriction and low-salt diet. Recommend to monitor his weight daily. If his weight increases by more than 5 lb he is to contact his PCP or cardiology for further recommendation. Education on CHF will be provided. Compliance with medications addressed in detail. Patient with diabetes mellitus type 2 with hyperglycemia. Hemoglobin A1c was 10.4. Patient needs better diabetic control. Patient previously on Glucophage but this caused increased nausea. At discharge will recommend insulin therapy. At discharge patient will continue with NPH 10 units subcu twice daily. Recommend to monitor blood sugars at least twice daily. Recommend to maintain blood sugar less than 140 fasting and less than 200 after meals. If blood sugars remain above 200 then he is to increase NPH by 1-2 units until diabetes is better controlled. Command follow up with PCP to further monitor and adjust medication. Diabetic education and insulin education will be provided. Patient with chronic renal disease stage III. This appears stable. Recommend with 1500 cc per day fluid restriction. Recommend no further use of nonsteroidal anti-inflammatories. Future medications may need to be renally dose. Recommend follow up with nephrology in 1-2 weeks to follow up this hospitalization. Recommend to recheck lab-BMP at that time. Patient likely with underlying COPD. At Discharge will start Airduo 1 puffs twice daily and Pro air 2 puffs 3 times a day as needed for shortness of breath. Recommend follow up with pulmonology as an outpatient to further address and monitor. Education on COPD provided. Patient with tobacco and methamphetamine use. Patient admits to use. Cessation education provided. Recommend follow up with PCP to further monitor and continue cessation education. Patient will be given Nicoderm patch to help with tobacco cessation. Vital Signs/Physical Exam: Temp Pulse Resp BP Pulse Ox 97.8 F 100 H 20 171/93 H 97 11/20/20 04:00 11/20/20 05:29 11/20/20 04:00 11/20/20 05:29 11/20/20 04:00 General: Alert, In no apparent distress, Oriented x3, Cooperative HEENT: Atraumatic Neck: Supple Respiratory: Clear to auscultation bilaterally, Normal air movement Cardiovascular: Normal pulses, Regular rate/rhythm Gastrointestinal: Normal bowel sounds, No rebound, No guarding Neurological: Normal speech, Normal strength at 5/5 x4 extr, Normal tone, Normal affect Laboratory Data at Discharge: WBC 15.90 K/uL (4.3-10.9) H D 11/20/20 05:20 Hgb 14.0 g/dL (13.6-17.9) 11/20/20 05:20 Hct 42.0 % (39.6-49.0) 11/20/20 05:20 Plt Count 202 K/uL (152-406) 11/20/20 05:20 PT 11.5 SECONDS (9.5-12.5) 11/19/20 16:32 INR 0.97 11/19/20 16:32 Sodium 132 mmol/L (136-145) L 11/20/20 05:20 Potassium 4.2 mmol/L (3.5-5.1) 11/20/20 05:20 BUN 24 mg/dL (7-18) H 11/20/20 05:20 Creatinine 1.59 mg/dL (0.55-1.3) H 11/20/20 05:20 Glucose 365 mg/dL (74-106) H 11/20/20 05:20 Magnesium 2.0 mg/dL (1.8-2.4) 11/19/20 16:32 Total Bilirubin 0.7 mg/dL (0.2-1.0) 11/20/20 05:20 AST 24 U/L (15-37) 11/20/20 05:20 ALT 27 U/L (12-78) 11/20/20 05:20 Alkaline Phosphatase 113 U/L (45-117) 11/20/20 05:20 Home Medications: Albuterol Sulfate [Proair Hfa] 2 puff IH TID PRN #1 hfa.aer.ad 11/20/20 Aspirin [Aspirin EC 81 MG] 81 mg PO DAILY #90 tablet. 11/20/20 Bumetanide [Bumex*] 2 mg PO DAILY #60 tab 11/20/20 Carvedilol [Coreg] 25 mg PO BID #60 11/20/20 Fluticasone Propion/Salmeterol [Airduo Digihaler 113-14 Mcg] 1 each IH BID #1 aer.pw.bas 11/20/20 NPH, Human Insulin Isophane [Humulin N] 10 unit SQ BID #1 vial 11/20/20 Nicotine [Nicoderm Cq] 1 each TD DAILY #30 patch.td24 11/20/20 Sacubitril/Valsartan [Entresto 49 mg-51 mg Tablet] 1 tab PO BID #60 11/20/20 New Medications: Fluticasone Propion/Salmeterol [Airduo Digihaler 113-14 Mcg] 1 each IH BID #1 aer.pw.bas Aspirin [Aspirin EC 81 MG] 81 mg PO DAILY #90 tablet. Bumetanide [Bumex*] 2 mg PO DAILY #60 tab Carvedilol [Coreg] 25 mg PO BID #60 Sacubitril/Valsartan [Entresto 49 mg-51 mg Tablet] 1 tab PO BID #60 NPH, Human Insulin Isophane [Humulin N] 10 unit SQ BID #1 vial Nicotine [Nicoderm Cq] 1 each TD DAILY #30 patch.td24 Albuterol Sulfate [Proair Hfa] 2 puff IH TID PRN #1 hfa.aer.ad PRN Reason: Shortness Of Breath Physician Discharge Instructions: Recommend follow up with PCP in 1 week to follow up this hospitalization. Patient presented with dyspnea. Patient ran out of his medications. Patient has history of systolic CHF and takes Entresto, Coreg, and Bumex. Patient admitted for further evaluation and treatment. Chest ray should note volume overload. CT scan shows no pulmonary embolism or pneumonia. Patient tested negative for COVID and influenza. White count was elevated but repeat improved. Patient has done well during course of his stay. Patient without significant shortness of breath at discharge. Patient admitted methamphetamine use. Tobacco cessation and methamphetamine cessation addressed in detail. At discharge patient will continue with his current medications of Entresto 49/51 mg 1 pill twice daily, carvedilol 25 mg 1 pill twice daily, and Bumex 2 mg daily. Patient will also continue with ASA 81 mg daily. Patient will continue with a 1500 cc per day fluid restriction and low-salt diet. Recommend to monitor his weight daily. If his weight increases by more than 5 lb he is to contact his PCP or cardiology for further recommendation. Education on CHF will be provided. Compliance with medications addressed in detail. Patient with diabetes mellitus type 2 with hyperglycemia. Hemoglobin A1c was 10.4. Patient needs better diabetic control. Patient previously on Glucophage but this caused increased nausea. At discharge will recommend insulin therapy. At discharge patient will continue with NPH 10 units subcu twice daily. Recommend to monitor blood sugars at least twice daily. Recommend to maintain blood sugar less than 140 fasting and less than 200 after meals. If blood s ugars remain above 200 then he is to increase NPH by 1-2 units until diabetes is better controlled. Command follow up with PCP to further monitor and adjust medication. Diabetic education and insulin education will be provided. Patient with chronic renal disease stage III. This appears stable. Recommend with 1500 cc per day fluid restriction. Recommend no further use of nonsteroidal anti-inflammatories. Future medications may need to be renally dose. Recommend follow up with nephrology in 1-2 weeks to follow up this hospitalization. Recommend to recheck lab-BMP at that time. Patient likely with underlying COPD. At Discharge will start Airduo 1 puffs twice daily and Pro air 2 puffs 3 times a day as needed for shortness of breath. Recommend follow up with pulmonology as an outpatient to further address and monitor. Education on COPD provided. Patient with tobacco and methamphetamine use. Patient admits to use. Cessation education provided. Recommend follow up with PCP to further monitor and continue cessation education. Patient will be given Nicoderm patch to help with tobacco cessation. Diet: AHA Activity: Ad polo Followup: Sylwia Velasco MD [Primary Care Provider] - Time spent managing pt's care (in minutes): 55
[2020-11-20 10:27] LABS: Thyroid Stimulating Hormone 0.486 uIU/mL (0.360-3.740)
[2020-11-20] MEDS ORDERED: INFLUENZA VACCINE (for 3y+) 0.5 ML DOSE IMVAC ONE (11:00)
[2020-11-20] MEDS ORDERED: INSULIN GLARGINE 100 UNITS/ML SQ ONE ×2 (12:14→12:28)
[2020-11-20 12:49] VITALS: BP 162/91
== END 2020-11-20 12:50 | disposition home or self-care (01) | DRG 291 ==
LOC: ER 15:08 → ERHOLD 19:49 → OBSVTOIN 11-20 07:47
PROVIDERS: ADMIT Family Medicine; ATTEND Family Medicine
DX: I13.0 Hypertensive heart and chronic kidney disease with heart failure and stage 1 through stage 4 chronic kidney disease, or unspecified chronic kidney disease (principal); J96.01 Acute respiratory failure with hypoxia; I50.23 Acute on chronic systolic (congestive) heart failure; E87.1 Hypo-osmolality and hyponatremia; N18.30 Chronic kidney disease, stage 3 unspecified; E11.65 Type 2 diabetes mellitus with hyperglycemia; D72.829 Elevated white blood cell count, unspecified; N28.9 Disorder of kidney and ureter, unspecified; F17.210 Nicotine dependence, cigarettes, uncomplicated; J44.9 Chronic obstructive pulmonary disease, unspecified; Z88.8 Allergy status to other drugs, medicaments and biological substances; Z79.899 Other long term (current) drug therapy; Z79.82 Long term (current) use of aspirin; Z79.4 Long term (current) use of insulin; Z20.822 Contact with and (suspected) exposure to COVID-19
CPT/HCPCS: 0240U; 36415; 71045; 71275; 80048; 80053; 80076; 81003; 82947; 83036; 83605; 83735; 83880; 84145; 84439; 84443; 84484; 85025; 85610; 87040; 87086; 87088; 93005; 94760; 96361; 96374; 96375; 99285; J0456; J0696; J1650; J1815; J1940; J2920; J2930; J3360; J7040; J7050; Q9967

== ENCOUNTER 2022-05-17 01:12 | Inpatient (IN) | payer SELFPAY ==
[2022-05-17] MEDS ORDERED: NITROGLYCERIN 1 GM PKT TD ONE (02:41)
[2022-05-17] MEDS ORDERED: FUROSEMIDE 20 MG/ 2ML VIAL ONE (02:41)
[2022-05-17] MEDS ORDERED: FUROSEMIDE 40 MG/4 ML VIAL ONE ×2 (02:41→09:02)
[2022-05-17 02:53] LABS: Absolute Lymphocytes (CBC) 2.3 K/uL (0.7-4.9); Hematocrit 42.4 % (39.6-49.0); MCV 88.2 fL (80-100); MPV 8.9 fL (7.6-11.3); RBC Red Blood Cell Count 4.81 M/uL (4.33-5.43)
[2022-05-17 02:59] LABS: Protime INR 0.98
[2022-05-17 03:24] LABS: ALT/SGPT 25 U/L (12-78); AST/SGOT 15 U/L (15-37); Albumin 3.6 g/dL (3.4-5.0); Alkaline Phosphatase 87 U/L (45-117); BUN Blood Urea Nitrogen 23 mg/dL (7-18); Bicarbonate 20 mmol/L (21-32); Bilirubin Direct < 0.1 mg/dL (0-0.2); Bilirubin Total 0.2 mg/dL (0.2-1.0); Glomerular Filtration Rate 49 ml/min (=/>90); Glucose Level 194 mg/dL (74-106); NT PRO-BNP 1636 pg/mL (<125); Potassium 4.2 mmol/L (3.5-5.1); Sodium Level 136 mmol/L (136-145)
[2022-05-17 03:31] LABS: SARS-CoV-2 Antigen Rapid Res Negative (Negative)
--- NOTE | 2022-05-17 03:53 | ER ---
Nurse's Notes [facility] Name: Seth Smith Age: 47 yrs Sex: Male : 1975 Arrival Date: 05/17/2022 Time: 01:15 Bed 16 Private MD: Diagnosis: Unspecified combined systolic (congestive) and diastolic (congestive) heart failure;Pleural effusion, not elsewhere classified;Dyspnea, unspecified Presentation: 05/17 01:17 Chief complaint: Patient states: "I ran out of my medication and I feel like I cannot tw5 breath.". Coronavirus screen: Vaccine status: Patient reports being unvaccinated. Ebola Screen: Patient negative for fever greater than or equal to 101.5 degrees Fahrenheit, and additional compatible Ebola Virus Disease symptoms Patient denies exposure to infectious person. Patient denies travel to an Ebola-affected area in the 21 days before illness onset. Initial Sepsis Screen: Does the patient meet any 2 criteria? HR > 90 bpm. Does the patient have a suspected source of infection? No. Patient's initial sepsis screen is negative. Risk Assessment: Do you want to hurt yourself or someone else? Patient reports no desire to harm self or others. Onset of symptoms was May 14, 2022. 01:17 Method Of Arrival: Ambulatory tw5 01:17 Acuity: MARKUS 3 tw5 02:00 Note open sores noted to upper extremities in various stages of healing pt reports vick picks at his skin a lot. Admits to smoking methamphetamine daily and has been homeless for 2 weeks Pt also did inject methamphetamine's but has not done so in over a year. Triage Assessment: 01:18 General: Appears uncomfortable, Behavior is calm, cooperative, appropriate for age. tw5 Pain: Pain currently is 0 out of 10 on a pain scale. Historical: - Allergies: 01:18 Dilantin; tw5 04:13 Ativan (anxious); kl - PMHx: 01:18 CHF; COPD; Diabetes - NIDDM; Seizures; tw5 - Immunization history:: Flu vaccine is not up to date. - Social history:: Smoking status: Patient reports the use of cigarette tobacco products, smokes one pack cigarettes per day. - Family history:: not pertinent. - Hospitalizations: : No recent hospitalization is reported. Screenin:12 Abuse screen: Denies threats or abuse. Nutritional screening: No deficits noted. kl Tuberculosis screening: No symptoms or risk factors identified. Fall Risk None identified. Assessment: 01:20 General: Appears in no apparent distress. uncomfortable, Behavior is calm, cooperative, jb4 appropriate for age. Pain: Denies pain. Neuro: Level of Consciousness is awake, alert, obeys commands, Oriented to person, place, time, situation. Cardiovascular: Patient's skin is warm and dry. Respiratory: Reports shortness of breath on exertion Airway is patent Respiratory effort is even, labored, Respiratory pattern is symmetrical, tachypnea. Derm: Skin is intact, Skin is pink, warm \\T\\ dry. Musculoskeletal: Circulation, motion, and sensation intact. Range of motion: intact in all extremities. 02:30 Reassessment: Patient appears in no apparent distress at this time. No changes from jb4 previously documented assessment. Patient and/or family updated on plan of care and expected duration. Pain level reassessed. Vital Signs: 01:17 BP 182 / 116; Pulse 108; Resp 26; Temp 97.8; Pulse Ox 99% ; Weight 104.33 kg; Height 5 tw5 ft. 11 in. (180.34 cm); Pain 0/10; 03:02 BP 179 / 120; Pulse 98; Resp 20; Pulse Ox 100% on R/A; jb4 04:21 BP 188 / 118; Pulse 95; Resp 24; Pulse Ox 99% on R/A; kl 04:36 BP 174 / 107; Pulse 97; Resp 20; Pulse Ox 99% on R/A; kl 01:17 Body Mass Index 32.08 (104.33 kg, 180.34 cm) tw5 ED Course: 01:15 Patient arrived in ED. bp1 01:17 Demetrius Terry MD is Attending Physician. rn 01:17 Arm band placed on right wrist. tw5 01:18 Triage completed. tw5 01:42 XRAY CXR (1 view) In Process Unspecified. EDMS 02:15 Missed attempt(s): 20 gauge in left forearm. kl 02:30 Inserted saline lock: 18 gauge in right antecubital area, using aseptic technique. kl ,using aseptic technique. per Ahmet Caldwell Patient admitted, IV remains in place. 03:52 Silvino Braun MD is Hospitalizing Provider. rn 04:12 No provider procedures requiring assistance completed. kl 04:29 No apparent distress. Resting quietly. kl 14:54 Long Trotter, RN is Primary Nurse. bp 16:28 Patient has correct armband on for positive identification. Bed in low position. Call bp light in reach. Side rails up X2. Administered Medications: 02:41 Drug: Lasix (furosemide) 60 mg Route: IVP; Site: right antecubital; jb4 02:41 Drug: Nitro-Bid (nitroglycerin) Ointment 2 % 0.5 inches Route: Transdermal; Site: jb4 anterior chest wall; 04:21 Drug: Nitro-Bid (nitroglycerin) Ointment 2 % 0.5 inches Route: Transdermal; Site: anterior chest wall; 04:21 Drug: hydrOXYzine 50 mg Route: PO; Medication: 16:29 VIS not applicable for this client. bp Outcome: 03:52 Decision to Hospitalize by Provider. rn 04:13 Condition: stable kl 16:28 Admitted to Med/surg accompanied by tech, via wheelchair, room 211, Report called to bp ALCALA RN 16:28 Instructed on the need for admit. 16:40 Patient left the ED. bp Signatures: Dispatcher [employer] EDMS Cait Brennan RN RN kl Nieto, Roman, MD MD rn Bryson, James, RN RN jb4 Peltier, Brian, RN Jessy Tipton Tiffany tw5 Corrections: (The following items were deleted from the chart) 01:19 01:17 Pulse 108bpm; Resp 18bpm; Pulse Ox 99%; Temp 97.8F; 104.33 kg; Height 5 ft. 11 tw5 in.; BMI: 32.0; Pain 0/10; tw5 03:02 02:30 BP 179 / 120; Pulse 98bpm; Resp 20bpm; Pulse Ox 100% RA; jb4 jb4 04:14 01:18 Allergies: Ativan; tw5
--- NOTE | 2022-05-17 03:53 | EDPHYS ---
Physician Documentation [facility] Name: Seth Smith Age: 47 yrs Sex: Male : 1975 Arrival Date: 05/17/2022 Time: 01:15 Bed 16 Private MD: ED Physician Demetrius Terry HPI: 05/17 01:27 This 47 yrs old Male presents to ER via Ambulatory with complaints of High Blood rn Pressure, Shortness Of Breath. 01:27 The patient has shortness of breath at rest, with light activity. Onset: The rn symptoms/episode began/occurred 2 day(s) ago. Duration: The symptoms are continuous. The patient's shortness of breath is aggravated by exertion, light activity, supine position, talking, walking, is alleviated by rest, sitting up. Associated signs and symptoms: Pertinent positives: non-productive cough, Pertinent negatives: chest pain, fever, hemoptysis. Severity of symptoms: At their worst the symptoms were moderate in the emergency department the symptoms are unchanged. The patient has experienced similar episodes in the past. The patient has not recently seen a physician. Reports ran out of medication recently, including bumex, reports feels bloated and sob. No fever. No productive cough.. Historical: - Allergies: 01:18 Dilantin; tw5 04:13 Ativan (anxious); kl - PMHx: 01:18 CHF; COPD; Diabetes - NIDDM; Seizures; tw5 - Immunization history:: Flu vaccine is not up to date. - Social history:: Smoking status: Patient reports the use of cigarette tobacco products, smokes one pack cigarettes per day. - Family history:: not pertinent. - Hospitalizations: : No recent hospitalization is reported. ROS: 01:27 Constitutional: Negative for fever, chills, and weight loss, Eyes: Negative for injury, rn pain, redness, and discharge, Neck: Negative for injury, pain, and swelling, Cardiovascular: Negative for chest pain, palpitations Respiratory: + moderate tachypnea, no retractions, + bibasilar crackles, no wheezing Abdomen/GI: Negative for abdominal pain, nausea, vomiting, diarrhea, and constipation, Back: Negative for injury and pain, : + decreased urination last day MS/Extremity: Negative for injury and deformity, Skin: Negative for injury, rash, and discoloration, Neuro: Negative for headache, weakness, numbness, tingling, and seizure. Exam: 01:27 Constitutional: This is a well developed, well nourished patient who is awake, alert, rn + moderate tachypnea, has to rest on his way to room. Head/Face: Normocephalic, atraumatic. Eyes: Periorbital areas with no swelling, redness, or edema. Cardiovascular: Tachycardic, regular. No pulse deficits. Respiratory: + moderate tachypnea, with bibasilar crackles. Abdomen/GI: Soft, non-tender Skin: Warm, dry MS/ Extremity: Pulses equal, no cyanosis. Neurovascular intact. + brawny edema bilateral lower ext. Full, normal range of motion. Equal circumference. Neuro: Awake and alert, GCS 15. Normal gait. 03:10 ECG was reviewed by the Attending Physician. rn Vital Signs: 01:17 BP 182 / 116; Pulse 108; Resp 26; Temp 97.8; Pulse Ox 99% ; Weight 104.33 kg; Height 5 tw5 ft. 11 in. (180.34 cm); Pain 0/10; 03:02 BP 179 / 120; Pulse 98; Resp 20; Pulse Ox 100% on R/A; jb4 04:21 BP 188 / 118; Pulse 95; Resp 24; Pulse Ox 99% on R/A; kl 04:36 BP 174 / 107; Pulse 97; Resp 20; Pulse Ox 99% on R/A; kl 01:17 Body Mass Index 32.08 (104.33 kg, 180.34 cm) tw5 MDM: 01:17 Patient medically screened. rn 03:48 Differential diagnosis: CHF exacerbation, Myocardial Infarction Pneumothorax pulmonary rn edema. Data reviewed: vital signs, nurses notes, lab test result(s), EKG, radiologic studies, plain films, and as a result, I will admit patient. Counseling: I had a detailed discussion with the patient and/or guardian regarding: the historical points, exam findings, and any diagnostic results supporting the discharge/admit diagnosis, lab results, radiology results, the need for further work-up and treatment in the hospital. Response to treatment: the patient's symptoms have mildly improved after treatment, and as a result, I will admit patient. Admission orders: after a detailed discussion of the patient's condition and case, the admit orders are written by me. ED course: Pt urinating, but still tachypneic, cannot walk a few steps without labored breathing, CXR with bilateral edema and pleural effusions. Will admit to hospitalist service. . 05/17 01:26 Order name: BMP; Complete Time: 03:30 rn 05/17 01:26 Order name: CBC with Diff; Complete Time: 03:12 rn 05/17 01:26 Order name: Hepatic Function; Complete Time: 03:30 rn 05/17 01:26 Order name: NT PRO-BNP; Complete Time: 03:30 rn 05/17 01:26 Order name: PT-INR; Complete Time: 03:12 rn 05/17 01:26 Order name: Ptt, Activated; Complete Time: 03:12 rn 05/17 01:26 Order name: XRAY CXR (1 view) rn 05/17 01:26 Order name: SARS-COV-2 Antigen Rapid; Complete Time: 03:45 rn 05/17 03:34 Order name: Troponin High Sensitivity; Complete Time: 04:00 mw2 05/17 07:23 Order name: Glucose, Ancillary Testing EDLA 05/17 12:04 Order name: Glucose, Ancillary Testing EDLA 05/17 01:26 Order name: EKG; Complete Time: 01:29 rn 05/17 01:26 Order name: Cardiac monitoring; Complete Time: 02:15 rn 05/17 01:26 Order name: EKG - Nurse/Tech; Complete Time: 02:15 rn 05/17 01:26 Order name: IV Saline Lock; Complete Time: 02:15 rn 05/17 01:26 Order name: Labs collected and sent; Complete Time: 02:15 rn 05/17 01:26 Order name: O2 Per Protocol; Complete Time: 02:15 05/17 01:26 Order name: O2 Sat Monitoring; Complete Time: 02:15 rn EC:10 Rate is 91 beats/min. Rhythm is regular. QRS [place] is Normal. [place] interval is normal. QRS rn interval is normal. QT interval is prolonged at 496 msec. No Q waves. T waves are Normal. No ST changes noted. Clinical impression: NSR, prolonged QT. Interpreted by me. Reviewed by me. Administered Medications: 02:41 Drug: Lasix (furosemide) 60 mg Route: IVP; Site: right antecubital; jb4 02:41 Drug: Nitro-Bid (nitroglycerin) Ointment 2 % 0.5 inches Route: Transdermal; Site: jb4 anterior chest wall; 04:21 Drug: Nitro-Bid (nitroglycerin) Ointment 2 % 0.5 inches Route: Transdermal; Site: kl anterior chest wall; 04:21 Drug: hydrOXYzine 50 mg Route: PO; kl Disposition Summary: 05/17/22 03:52 Hospitalization Ordered Hospitalization Status: Inpatient Admission rn Provider: Silvino Braun rn Condition: Stable rn Problem: an acute exacerbation rn Symptoms: have improved rn Bed/Room Type: Standard rn Location: Telemetry/MedSurg (Inpatient)(05/17/22 14:47) dw Room Assignment: 211(05/17/22 14:47) dw Diagnosis - Unspecified combined systolic (congestive) and diastolic (congestive) heart failure rn - Pleural effusion, not elsewhere classified rn - Dyspnea, unspecified rn Forms: - Medication Reconciliation Form rn - SBAR form rn Signatures: Dispatcher [employer] EDCait Lorenz RN CAROLA Debra Turner RN Maggi Estevez RN Demetrius Atkinson MD MD rn Bryson, James, RN RN Mirian Paz Sophia, PA PA sb3 Corrections: (The following items were deleted from the chart) 04:05 03:52 Telemetry/MedSurg (Inpatient) carola stephens 04:05 03:52 carola stephens 04:14 01:18 Allergies: Ativan; tw5 14:47 04:05 [facility] ER HOLD mw 14:47 04:05 ERHOLD- mw dw
--- NOTE | 2022-05-17 04:21 | P.HP ---
Certification for Inpatient Patient admitted to: Inpatient With expected LOS: <2 Midnights Patient will require the following post-hospital care: None Practitioner: I am a practitioner with admitting privileges, knowledge of patient current condition, hospital course, and medical plan of care. Services: Services provided to patient in accordance with Admission requirements found in Title 42 Section 412.3 of the Code of Federal Regulations Patient History Date of Service: 05/17/22 Primary Care Provider: Goldy Reason for admission: CHF Exacerbation History of Present Illness: Patient is a 47-year-old male with CHF (unknown EF), hypertension, CAD/[place], COPD, IDDM who presented to the ED with complaints of shortness of breath and swelling all over. He reports that he has been out of his medications for a few days now, including Bumex. Patient is tachypneic and short of breath upon presentation, appears uncomfortable. He is also hypertensive 182/116. He states that he does not see a seismic interpreter. Labs are significant for glucose 194, BUN 23, creatinine 1.71, BNP 1636, troponin HS 34. Chest x-ray showed pulmonary congestion suggestive of bilateral pleural effusions. He was given 60 mg IV Lasix in the ED. Upon assessment, patient reports he is still short of breath and feeling very anxious. Patient is admitted for further evaluation and treatment. Allergies lorazepam [From Ativan] Allergy (Verified 11/20/20 02:18) Itching/Hives/Rash phenytoin [From Dilantin] Allergy (Verified 11/20/20 02:18) Itching/Hives/Rash Home medications list reviewed: Yes Home Medications: Albuterol Sulfate [Proair Hfa] 2 puff IH TID PRN #1 hfa.aer.ad 11/20/20 Aspirin [Aspirin EC 81 MG] 81 mg PO DAILY #90 tablet. 11/20/20 Bumetanide [Bumex*] 2 mg PO DAILY #60 tab 11/20/20 Carvedilol [Coreg] 25 mg PO BID #60 11/20/20 Fluticasone Propion/Salmeterol [Airduo Digihaler 113-14 Mcg] 1 each IH BID #1 aer.pw.bas 11/20/20 NPH, Human Insulin Isophane [Humulin N] 10 unit SQ BID #1 vial 11/20/20 Nicotine [Nicoderm Cq] 1 each TD DAILY #30 patch.td24 11/20/20 Sacubitril/Valsartan [Entresto 49 mg-51 mg Tablet] 1 tab PO BID #60 11/20/20 - Past Medical/Surgical History Diabetic: Yes -: Hypertension -: Diabetes -: Gout -: CHF -: COPD -: Right Forearm Psychosocial/ Personal History: Patient reports recent homelessnes. - Family History Father -: Hypertension Mother -: Hypertension, Diabetes - Social History Smoking Status: Current every day smoker Alcohol use: No CD- Drugs: Yes Caffeine use: Yes Place of Residence: [facility] Review of Systems Respiratory: Shortness of Breath, SOB with Excertion Cardiovascular: Edema Physical Examination - Physical Exam General: Alert, In no apparent distress, Obese HEENT: Atraumatic, PERRLA, EOMI, Sclerae nonicteric Neck: Supple, 2+ carotid pulse no bruit, No LAD, Without JVD or thyroid abnormality Respiratory: Crackles/rales Cardiovascular: Regular rate/rhythm, Normal S1 S2, Edema Gastrointestinal: Normal bowel sounds, No tenderness Musculoskeletal: No tenderness Integumentary: No rashes Neurological: Normal gait, Normal speech, Normal strength at 5/5 x4 extr, Normal tone, Normal affect - Studies Laboratory Data (last 24 hrs) 05/17/22 02:15: PT 10.8, INR 0.98, APTT 35.2 05/17/22 02:15: WBC 10.0, Hgb 14.6, Hct 42.4, Plt Count 224 05/17/22 02:15: Sodium 136, Potassium 4.2, BUN 23 H, Creatinine 1.71 H, Glucose 194 H, Total Bilirubin 0.2, AST 15, ALT 25, Alkaline Phosphatase 87 Assessment and Plan - Problems (Diagnosis) (1) Acute exacerbation of CHF (congestive heart failure) Current Visit: Yes Status: Acute Qualifiers: Heart failure type: combined systolic and diastolic Qualified Code(s): I50.43 - Acute on chronic combined systolic (congestive) and diastolic (congestive) heart failure (2) Hypertension Current Visit: Yes Status: Chronic Qualifiers: Hypertension type: primary hypertension Qualified Code(s): I10 - Essential (primary) hypertension (3) Type 2 diabetes mellitus Current Visit: Yes Status: Chronic Qualifiers: Diabetes mellitus intermediate insulin use: with meterman use Diabetes mellitus complication status: with kidney complications Diabetes mellitus complication detail: with chronic kidney disease Chronic kidney disease stage: stage 3 (moderate) Chronic kidney disease stage 3 subtype: stage 3a (GFR 45-59 ) Qualified Code(s): E11.22 - Type 2 diabetes mellitus with diabetic chronic kidney disease; N18.31 - Chronic kidney disease, stage 3a; Z79.4 - halfway (current) use of insulin (4) COPD (chronic obstructive pulmonary disease) Current Visit: Yes Status: Chronic Qualifiers: COPD type: unspecified COPD Qualified Code(s): J44.9 - Chronic obstructive pulmonary disease, unspecified - Plan -Echo ordered for morning -Cardiology consulted -Monitor intake and output. 1500 cc/day fluid restriction -IV lasix -ACHS Accu-Cheks with mild sliding scale insulin and diabetic diet -Breathing treatments as needed -Patient does admit to homelessness, methamphetamine abuse, and tobacco abuse. director of social services consult in place -Monitor and replete electrolytes per protocol -Reconcile and continue home medications -Lovenox for VTE ppx -Full code Discharge Plan: Home Plan to discharge in: 48 Hours - Advance Directives Does patient have a Living Will: No Does patient have a Durable POA for Healthcare: No - Code Status/Comfort Care Code Status Assessed: Yes (Full) Critical Care: No Time Spent Managing Pts Care (In Minutes): 50
[2022-05-17] MEDS ORDERED: hydrOXYzine HCL 25 MG TAB ONE (04:25)
[2022-05-17] MEDS ORDERED: HYDRALAZINE HCL 20 MG/ML VIAL ONE ×2 (04:50→14:46)
[2022-05-17] MEDS ORDERED: ALBUTEROL 2.5 MG/3 ML NEB SOL NEB PRN (04:51)
[2022-05-17] MEDS ORDERED: ACETAMINOPHEN 500 MG TAB PO PRN (04:51)
[2022-05-17] MEDS ORDERED: ONDANSETRON 4 MG/2 ML VIAL IV PRN (04:51)
[2022-05-17] MEDS: INSULIN -REGULAR HUMAN 50 UNIT/0.5 ML ML SQ SCH ×4 (07:30→20:46)
[2022-05-17] MEDS ORDERED: PNEUMOCOCCAL VACCINE 0.5 ML IMVAC ONE ×2 (08:00→09:03)
[2022-05-17] MEDS: ENOXAPARIN 40 MG/0.4 ML SQ SCH (09:00)
[2022-05-17] MEDS: FUROSEMIDE 40 MG/4 ML VIAL IV SCH ×2 (09:00→17:01)
[2022-05-17] MEDS ORDERED: ENOXAPARIN 40 MG/0.4 ML SQ ONE (09:03)
[2022-05-17] MEDS ORDERED: INSULIN -REGULAR HUMAN 50 UNIT/0.5 ML ML ONE (09:03)
--- NOTE | 2022-05-17 11:48 | RAD REPORT ---
EXAM DESCRIPTION: RAD - Chest Single View - 05/17/2022 1:41 am CLINICAL HISTORY: DYSPNEA TECHNIQUE: Frontal view of the chest. COMPARISON: XR Chest dated 05/11/2022 FINDINGS: Lungs: Central pulmonary vascular and interstitial prominence mildly progressed. Pleural space: Blunting of the costophrenic angles bilaterally. No pneumothorax. Heart: The cardiac silhouette is enlarged, stable. Mediastinum: Unremarkable. Bones/joints: Unremarkable. IMPRESSION: Mild interval progression of findings suggestive of pulmonary congestion including possi ble small bilateral pleural effusions. Superimposed infection not excluded. Electronically signed by: Vinny Resendez MD 05/17/2022 1:53 AM CDT Due to temporary technical issues with the PACS/Fluency reporting system, reports are being signed by the in house radiologists without review as a courtesy to insure prompt reporting. The interpreting radiologist is fully responsible for the content of the report.
[2022-05-17] MEDS: HYDRALAZINE HCL 20 MG/ML VIAL IV PRN ×2 (13:00→17:01)
--- NOTE | 2022-05-17 15:19 | EKG ---
Test Date: 2022-05-17 Test Time: 02:35:45 Sueding Machine Operator: HIMANSHU MEASUREMENT RESULTS: Intervals: Rate: 91 MD: 184 QRSD: 80 QT: 404 QTc: 496 Irvona: P: 39 MD: 184 QRS: 58 T: 84 INTERPRETIVE STATEMENTS: Normal sinus rhythm Prolonged QT Abnormal ECG Compared to ECG 11/19/2020 16:05:44 Prolonged QT interval now present Sinus tachycardia no longer present T-wave abnormality no longer present Electronically Signed On 05-17-22 15:18:38 CDT by Asa Cevallos
--- NOTE | 2022-05-17 16:38 | P.PN ---
Date of Service: 05/17/22 Patient seen and examined. He stated he feels better today compared to yesterday. He reports less shortness of breath. Diagnosis: Acute on chronic systolic heart failure. Chronic kidney disease stage III. Plan: Continue IV Lasix. Obtain echocardiogram. Nephrology consulted Social service consult-patient is homeless and has difficulty affording his medications.
[2022-05-17] MEDS ORDERED: carvediloL 25 MG TAB PO ONE (18:01)
[2022-05-17 18:08] VITALS: O2SAT 99
--- NOTE | 2022-05-17 20:00 | CON ---
Date of Consultation: 05/17/2022 Reason For Consultation: Heart failure. History Of Present Illness: This is a 47-year-old male with history of hypertension, COPD, insulin-d ependent diabetes, congestive heart failure, presents with shortness of breath and lower extremity ed bekah. He is taking Bumex at home, unsure of the dose. Found to be hypertensive, blood pressure as hi gh as 182/116. Evaluated this patient at bedside. He denies having any chest pain. His breathing i s better already. Past Medical History: As outlined above in the HPI. Medications: Refer reconciliation for detailed list. Allergies: LORAZEPAM AND PHENYTOIN. Family History: No premature coronary artery disease or cancer. Social History: Does not smoke or drink. Does not use any drugs. Review of Systems: All systems reviewed and they are negative except as mentioned in the HPI. Physical Examination: Vital Signs: Reviewed. Head and Neck: Pupils are equal and reactive to light. Intact eye movements. No JVD. No cervical lymphadenopathy. Neck: Supple. Thyroid is not enlarged. Lungs: Clear to auscultation bilaterally. No rhonchi, rales, or crackles. No accessory muscle use. Heart: Regular rate and rhythm. No extra sounds. Abdomen: Soft, nontender. Bowel sounds positive. No organomegaly. No masses or hernia. No rigidi ty or rebound. Extremities: No edema, clubbing, or cyanosis. Intact pulses. Skin: No rash. Neurologic: Alert, awake, and oriented x3. No acute focal deficits appreciated. Investigations: Troponin is negative. Creatinine 1.71. Hemoglobin 14.6. Assessment And Recommendations: 1.Inpyj-rv-bazasng congestive heart failure exacerbation. Based on his creatinine, I recommended 60 of Lasix IV q.12 hours and monitor BUN, creatinine, and cardiac output. 2.Hypertensive urgency. Started diuretic today and then if that does not work alone, then start him on lisinopril as well. Obtain an echocardiogram and trend troponins. Thank for the consult. /JACQUELINE Voice ID: [id number] Report ID: [id number]
[2022-05-17] MEDS ORDERED: WATER FOR INJ,STERILE 10 ML IM PRN (23:53)
[2022-05-17] MEDS ORDERED: ZIPRASIDONE MESYLA 20 MG/VIAL IM PRN (23:53)
[2022-05-18] MEDS: HYDRALAZINE HCL 20 MG/ML VIAL IV PRN (00:12)
[2022-05-18] MEDS ORDERED: ALPRAZOLAM 1 MG TABLET PO ONE (04:09)
[2022-05-18 04:16] LABS: Absolute Lymphocytes (CBC) 2.2 K/uL (0.7-4.9); Hematocrit 42.2 % (39.6-49.0); Lymphocytes % 19.7 % (15.3-44.8); MCV 86.7 fL (80-100); MPV 8.5 fL (7.6-11.3); RBC Red Blood Cell Count 4.87 M/uL (4.33-5.43)
[2022-05-18] MEDS ORDERED: LABETALOL HCL 100 MG TAB PO ONE (04:32)
[2022-05-18 04:42] LABS: BUN Blood Urea Nitrogen 29 mg/dL (7-18); Bicarbonate 23 mmol/L (21-32); Glomerular Filtration Rate 52 ml/min (=/>90); Glucose Level 200 mg/dL (74-106); HDL Cholesterol 29 mg/dL (40-60); Magnesium 1.9 mg/dL (1.8-2.4); Potassium 3.4 mmol/L (3.5-5.1); Sodium Level 134 mmol/L (136-145); Thyroid Stimulating Hormone 0.599 uIU/mL (0.360-3.740)
[2022-05-18 04:52] VITALS: BMI 32.1
[2022-05-18 04:54] LABS: LDL, Direct 140 mg/dL (100-129)
[2022-05-18] MEDS: INSULIN -REGULAR HUMAN 50 UNIT/0.5 ML ML SQ SCH (07:30)
[2022-05-18] MEDS ORDERED: POTASSIUM CL SA 10 MEQ TAB PO ONE (09:00)
[2022-05-18 09:16] VITALS: BP 165/82; TEMP 97
[2022-05-18] MEDS: ENOXAPARIN 40 MG/0.4 ML SQ SCH (10:02)
[2022-05-18] MEDS: FUROSEMIDE 40 MG/4 ML VIAL IV SCH (10:02)
--- NOTE | 2022-05-18 10:47 | P.DS ---
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 mellitus exterminator helper insulin use: with alf use Diabetes mellitus complication status: with kidney complications Diabetes mellitus complication detail: with chronic kidney disease Chronic kidney disease stage: stage 3 (moderate) Chronic kidney disease stage 3 subtype: stage 3a (GFR 45- 59) Qualified Code(s): E11.22 - Type 2 diabetes mellitus with diabetic chronic kidney disease; N18.31 - Chronic kidney disease, stage 3a; Z79.4 - [facility] (current) use of insulin Brief History of Present Illness: Patient is a 47-year-old male with CHF (unknown EF), hypertension, CAD/NM, COPD, IDDM who presented to the ED with complaints of shortness of breath and swelling all over. He reported that he has been out of his medications including Bumex for a few days.. Patient was tachypneic and short of breath upon presentation. He was also hypertensive 182/116. He states that he does not see a talk show host. Labs were significant for glucose 194, BUN 23, creatinine 1.71, BNP 1636, troponin HS 34. Chest x-ray showed pulmonary congestion suggestive of bilateral pleural effusions. He was given 60 mg IV Lasix in the ED. patient admitted for further management. Hospital Course: Patient admitted to the medical floor and treated for CHF exacerbation with IV lasix. His initial troponin was negative. Patient clinically improved with treatment. His blood pressure was managed with oral Coreg. He was seen in consultation by cardiology Dr. Cevallos who recommended diuretics. Patient had an episode of agitation last night. Agitation could be related to possible illicit drug withdrawal. Patient is alert and oriented this morning, should he states that shortness of breath has resolved. Patient is deemed stable for discharge. He is prescribed Lasix lisinopril and Coreg. Also noted elevated lipid profile with high triglyceride and LDL levels. Patient prescribed Lipitor. Vital Signs/Physical Exam: Temp Pulse Resp BP Pulse Ox 97 F 85 20 165/82 H 99 05/18/22 08:00 05/18/22 10:02 05/18/22 08:00 05/18/22 10:02 05/18/22 08:00 General: Alert, In no apparent distress, Oriented x3 HEENT: Mucous membr. moist/pink Neck: JVD not distended Respiratory: Clear to auscultation bilaterally, Normal air movement Cardiovascular: No edema, Regular rate/rhythm, Normal S1 S2 Gastrointestinal: Soft and benign, Non-distended, No tenderness Musculoskeletal: No swelling Integumentary: No rashes Neurological: Normal strength at 5/5 x4 extr Laboratory Data at Discharge: WBC 11.1 K/uL (4.3-10.9) H 05/18/22 03:44 Hgb 14.4 g/dL (13.6-17.9) 05/18/22 03:44 Hct 42.2 % (39.6-49.0) 05/18/22 03:44 Plt Count 224 K/uL (152-406) 05/18/22 03:44 PT 10.8 SECONDS (9.5-12.5) 05/17/22 02:15 INR 0.98 05/17/22 02:15 APTT 35.2 SECONDS (24.3-36.9) 05/17/22 02:15 Sodium 134 mmol/L (136-145) L 05/18/22 03:44 Potassium 3.4 mmol/L (3.5-5.1) L 05/18/22 03:44 BUN 29 mg/dL (7-18) H 05/18/22 03:44 Creatinine 1.63 mg/dL (0.55-1.3) H 05/18/22 03:44 Glucose 200 mg/dL (74-106) H 05/18/22 03:44 Magnesium 1.9 mg/dL (1.8-2.4) 05/18/22 03:44 Total Bilirubin 0.2 mg/dL (0.2-1.0) 05/17/22 02:15 AST 15 U/L (15-37) 05/17/22 02:15 ALT 25 U/L (12-78) 05/17/22 02:15 Alkaline Phosphatase 87 U/L (45-117) 05/17/22 02:15 Triglycerides 475 mg/dL (<150) H 05/18/22 03:44 Cholesterol 235 mg/dL (<200) H 05/18/22 03:44 LDL Cholesterol Direct 140 mg/dL (100-129) H 05/18/22 03:44 HDL Cholesterol 29 mg/dL (40-60) L 05/18/22 03:44 Cholesterol/HDL Ratio 8.10 05/18/22 03:44 Home Medications: NPH, Human Insulin Isophane [Humulin N] 10 unit SQ BID #1 vial 11/20/20 Nicotine [Nicoderm Cq] 1 each TD DAILY #30 patch.td24 11/20/20 Albuterol Sulfate [Proair Hfa] 2 puff IH TID PRN #1 hfa.aer.ad 05/18/22 Aspirin [Aspirin EC 81 MG] 81 mg PO DAILY 90 Days #90 05/18/22 Atorvastatin Calcium [Lipitor] 40 mg PO BEDTIME #30 tab 05/18/22 Fluticasone Propion/Salmeterol [Airduo Digihaler 113-14 Mcg] 1 each IH BID #1 aer.pw.bas 05/18/22 Furosemide [Lasix] 40 mg PO BIDL #60 tab 05/18/22 carvediloL [Coreg] 25 mg PO BID 30 Days #60 tab 05/18/22 lisinopriL [Lisinopril] 20 mg PO DAILY 30 Days #30 05/18/22 New Medications: Fluticasone Propion/Salmeterol [Airduo Digihaler 113-14 Mcg] 1 each IH BID #1 aer.pw.bas Aspirin [Aspirin EC 81 MG] 81 mg PO DAILY 90 Days #90 carvediloL [Coreg] 25 mg PO BID 30 Days #60 tab Furosemide [Lasix] 40 mg PO BIDL #60 tab Atorvastatin Calcium [Lipitor] 40 mg PO BEDTIME #30 tab lisinopriL [Lisinopril] 20 mg PO DAILY 30 Days #30 Albuterol Sulfate [Proair Hfa] 2 puff IH TID PRN #1 hfa.aer.ad PRN Reason: Shortness Of Breath Diet: ADA Activity: Ad polo Followup: Edmundo Winslow MD [Primary Care Provider] - 1 Week Asa Cevallos MD [ACTIVE - CAN ADMIT] - Time spent managing pt's care (in minutes): 38
--- NOTE | 2022-05-20 07:04 | ECHO ---
HEIGHT: 5 ft 11 in WEIGHT: 230 lb 0 oz DATE OF STUDY: 05/17/[address]: Jamaica Medrano 2-DIMENSIONAL: YES M.MODE: YES DOPPLER: YES COLOR FLOW: YES TDS: PORTABLE: YES DEFINITY: BUBBLE STUDY: DIAGNOSIS: CONGESTIVE HEART FAILURE CARDIAC HISTORY: CATHERIZATION: NO SURGERY: NO PROSTHETIC VALVE: NO PACEMAKER: NO MEASUREMENTS (cm) DIASTOLIC (NORMALS) SYSTOLIC (NORMALS) IVSd 1.4 (0.6-1.2) LA Diam 5.1 (1.9-4.0) LVEF 55-60% LVIDd 5.1 (3.5-5.7) LVIDs 3.8 (2.0-3.5) %FS 26% LVPWd 1.5 (0.6-1.2) Ao Diam 2.8 (2.0-3.7) 2 DIMENSIONAL ASSESSMENT: RIGHT ATRIUM: NORMAL LEFT ATRIUM: SEVERELY ENLARGED RIGHT VENTRICLE: NORMAL LEFT VENTRICLE: NORMAL TRICUSPID VALVE: MODERATE TRICUSPID REGURGITATION MITRAL VALVE: MILD MITRAL REGURGITATION PULMONIC VALVE: MILD PULMONIC INSUFFICIENCY AORTIC VALVE: MILD AORTIC INSUFFICIENCY PERICARDIAL EFFUSION: NONE AORTIC ROOT: NORMAL LEFT VENTRICULAR WALL MOTION: NORMAL DOPPLER/COLOR FLOW: SEE BELOW COMMENTS: NORMAL LEFT VENTRICULAR EJECTION FRACTION 55-60%. NORMAL WALL MOTION. MILD CONCENTRIC LEFT VENTRICULAR HYPERTROPHY. MILD MITRAL, AORTIC AND PULMONIC INSUFFICIENCY. MODERATE TRICUSPID REGURGITATION. SEVERE PULMONARY HYPERTENSION WITH RIGHT VENTRICULAR SYSTOLIC PRESSURE GREATER THAN 60 mmHg. SEVERE LEFT ATRIAL ENLARGEMENT. TECHNOLOGIST: KUNAL GONZALES
== END 2022-05-18 11:41 | disposition home or self-care (01) | DRG 291 ==
LOC: ER 01:12 → ERHOLD 04:45 → 2ND 16:10
PROVIDERS: ADMIT Internal Medicine; ATTEND Internal Medicine
DX: I13.0 Hypertensive heart and chronic kidney disease with heart failure and stage 1 through stage 4 chronic kidney disease, or unspecified chronic kidney disease (principal); I50.23 Acute on chronic systolic (congestive) heart failure; N18.31 Chronic kidney disease, stage 3a; E11.22 Type 2 diabetes mellitus with diabetic chronic kidney disease; I25.10 Atherosclerotic heart disease of native coronary artery without angina pectoris; J44.9 Chronic obstructive pulmonary disease, unspecified; E78.1 Pure hyperglyceridemia; I16.0 Hypertensive urgency; F15.10 Other stimulant abuse, uncomplicated; M10.9 Gout, unspecified; I25.2 Old myocardial infarction; Z59.00 Homelessness unspecified; Z79.4 Long term (current) use of insulin; Z23 Encounter for immunization; Z20.822 Contact with and (suspected) exposure to COVID-19
CPT/HCPCS: 36415; 71045; 80048; 80061; 80076; 82947; 83735; 83880; 84443; 84484; 85025; 85610; 85730; 87811; 90471; 90732; 93005; 93306; 96374; 99285; J0360; J1650; J1815; J1940; J3486

== ENCOUNTER 2022-06-24 03:17 | Emergency (ER) | payer SELFPAY ==
--- OUTSIDE RECORDS SUMMARY | 2022-06-24 03:20 | XMS REPORT | Continuity of Care Document ---
:1975 Author Organization [facility] t Address [address] [place] [address] Care Team Providers Name Role Phone Sylwia Velasco MD Primary Care Physician Doctor Unassigned, [place] Attending Clinician Unavailable MD JOCELINE CASTELLANOS Attending Clinician Unavailable JOCELINE CASTELLANOS Attending Clinician Unavailable KENROY_Benjy Attending Clinician Unavailable Quin Mcdonald Attending Clinician MD MARY BERGERON Admitting Clinician Unavailable MARY BERGERON Admitting Clinician Unavailable TODD Admitting Clinician Unavailable Payers Payer Name Policy Type Policy Number Effective Date Expiration Date S ource Problems Condition Condition Condition Status Onset Resolution Last Treating Co mments Source Name Details Category Date Date Treatment Clinician Date Congestive Congestive Disease Active 0 M ethodi heart heart 4-20 st failure failure 00:00: Hospita 00 l Chest pain Chest pain Disease Active 2016-0 M ethodi 7-13 st 00:00: Hospita 00 l Allergies, Adverse Reactions, Alerts Allergy Allergy Status Severity Reaction(s) Onset Inactive Treating Comm ents Source Name Type Date Date Clinician LORAZEPA DRUG Active Other-Cmnt 2019-0 Univ ers M INGREDI 3-10 ity of 00:00: [place] 00 [facility] Lorazepa Propensi Active Other - See 2019-0 U nivers m ty to comments 3-10 ity of adverse 00:00: [place] reaction 00 Medical s Branch Lorazepa Propensi Active Other (See Me thodi m ty to Comments) 3-10 st adverse 00:00: Hospita reaction 00 l s to drug NO KNOWN Drug Active Univers ALLERGIE Class [facility] [place] [facility] Social History Social Habit Start Date Stop Date Quantity Comments Source History of Smokes tobacco [facility] tobacco use daily Hospital Tobacco use and 2021-02-06 2021-02-06 Smokeless tobacco Me thodist exposure 00:00:00 00:00:00 non-user Hospital Alcohol intake 2021-02-06 2021-02-06 Current drinker [facility] dist 00:00:00 00:00:00 of alcohol Hospital (finding) Sex Assigned At [birth year] [facility] 00:00:00 00:00:00 Hospital Smoking Status Start Date Stop Date Source Unknown if ever smoked Universit y [facility] Smokes tobacco daily 2021-02-06 00:00:00 [facility] Medications Ordered Filled Start Stop Current Ordering Indication Dosage Frequency Signature Comments Components Source Medication Medication Date Date Medication? Clinician (SIG) Name Name LORAZepam Yes .5mg Q6H Take 0.5 Meth mildred (ATIVAN) 4-[address] 0.5 MG 11:36: mouth Hospita tablet 41 every 6 l (six) hours as needed for anxiety. metFORMIN Yes 1000mg Q.5D Take 1,000 Methodi (GLUCOPHAGE 4-[address] ) 1,000 mg 11:36: mouth 2 [facility] tablet 41 (two) l times a day. nicotine Yes 1{patch Q24H Place 1 Met hodi (NICODERM 4-20 } patch on st CQ) 21 11:36: the skin Hospita mg/24 hr 41 daily. l BUMETanide Yes 1mg Q.5D Take 1 mg Me thodi (BUMEX) 1 4-[address] MG tablet 11:36: (two) Hospita 41 times a l day. Entresto Yes 1{tbl} Q.5D Take 1 Metho di 49-51 mg 3-[address] tablet per 00:00: mouth 2 [facility] tablet 00 (two) l times a day. Vital Signs Vital Name Observation Time Observation Value Comments Source Respiratory rate 2019-12-28 23:09:00 20 /min [facility] [place] [facility] Body weight 2019-12-28 23:09:00 117.935 kg [facility] Oxygen saturation in 2019-12-28 23:09:00 100 /min University of Arterial blood by [facility] Pulse oximetry Branch Systolic blood 2019-12-28 23:09:00 200 mm[Hg] Univer [facility]ity [facility] pressure [facility] Diastolic blood 2019-12-28 23:09:00 117 mm[Hg] Unive rsity of pressure [facility] Heart rate 2019-12-28 23:09:00 109 /min [facility] Body temperature 2019-12-28 23:09:00 36.78 Poly [facility] Respiratory rate 2019-12-28 23:09:00 20 /min [facility] Body weight 2019-12-28 23:09:00 117.935 kg [facility] Oxygen saturation in 2019-12-28 23:09:00 100 /min [facility] of Arterial blood by [facility] Pulse oximetry Branch Systolic blood 2019-12-28 23:09:00 200 mm[Hg] Univer sity [facility] Diastolic blood 2019-12-28 23:09:00 117 mm[Hg] Unive rsity of [facility] Heart rate 2019-12-28 23:09:00 109 /min [facility] Body temperature 2019-12-28 23:09:00 36.78 Poly Univ ersity of [facility] Procedures Procedure Date / Time Performed Performing Clinician [facility] e EXTERNAL PROVIDER - 2021-12-27 06:01:00 Doctor Unassigned, No Un i[facility]ity [facility] [place] ADC REFERRAL Name Medical Branch REFERRAL- 2021-11-23 06:01:00 Doctor Unassigned, No Univer sity [facility] [place] REQUEST/RESPONSE Name Medical Branch Plan of Care Planned Activity Planned Date Details Comments Source Future Scheduled 2022-06-20 HEPATITIS B VACCINES [facility] Test 18:59:18 (1 of 3 - 3-dose series) [code = HEPATITIS B VACCINES (1 of 3 - 3-dose series)] Future Scheduled 2022-06-20 COVID-19 VACCINE (#1) [facility] Test 18:59:18 [code = COVID-19 VACCINE (#1)] Future Scheduled 2022-06-20 Pneumococcal Vaccine: [facility] Test 18:59:18 Pediatrics (0 to 5 Years) and At-Risk Patients (6 to 64 Years) (1 - PCV) [code = Pneumococcal Vaccine: Pediatrics (0 to 5 Years) and At-Risk Patients (6 to 64 Years) (1 - PCV)] Future Scheduled 2022-06-20 COLONOSCOPY SCREENING [facility] Test 18:59:18 [code = COLONOSCOPY SCREENING] Future Scheduled 2022-06-20 INFLUENZA VACCINE Method [facility] Test 18:59:18 [code = INFLUENZA VACCINE] Encounters Start End Encounter Admission Attending Care Care Encounter Source Date/Time Date/Time Type Type Clinicians Facility Department ID 2021-12-27 2021-12-27 Orders Doctor MARI [id number] Univers 00:00:00 00:00:00 Only Unassigned, CRISTIAN [id number] ity of [place] [facility] [id number] Dannie as [id number] [facility] 009 Branch 2021-11-23 2021-11-23 Orders Doctor MARI [id number] [facility] 00:00:00 00:00:00 Only Unassigned, CRISTIAN [id number] ity of [place] [facility] [id number] Dannie as [phone] [facility] 009 Branch 2021-02-06 2021-02-06 Outpatient [facility] [id number] [place] 00:00:00 00:00:00 JOCELINE [address] 2020-12-22 2020-12-22 Outpatient [facility] [place] [id number] [place] 10:38:00 10:38:00 [facility] 2019-12-28 2019-12-28 Emergency Alexandra [facility] [id number] [facility] 18:15:10 20:22:00 Quin Lua [id number] [id number] [id number] [facility] 084 Branch 2019-12-28 2019-12-28 Emergency Alexandra [facility] [id number] 18:15:10 20:22:00 Quin Lua [id number] [place] [id number] [place] [id number] 2019-12-28 2019-12-28 Emergency X [facility] ERT [id number] Univers 17:31:00 17:31:00 [facility] Results Test Description Test Time Test Comments Results Result Comments Source SARS-CoV-2 (COVID-19) RNA [Presence] in Respiratory sp ecimen by 2021-02-06 13:29:01 GUERA with probe detection Test Item Value Reference Range Interpretation Comme nts SARS-CoV-2 (COVID-19) RNA [Presence] in Respiratory Not detected No t-Detected specimen by GUERA with probe detection (test code = 03032-3) Whether patient is employed in a healthcare setting (test code = 74736-9) Whether the patient has symptoms related to condition of interest (test code = 53268-1) Patient was hospitalized because of this condition (test code = 93071-3) Whether the patient was admitted to intensive care unit (ICU) for condition of interest (test code = 25548-2) Whether patient resides in a congregate care setting (test code = 14913-6)
--- NOTE | 2022-06-24 05:04 | EDPHYS ---
Physician Documentation [facility] Name: Seth Smith Age: 47 yrs Sex: Male : 1975 Arrival Date: 06/24/2022 Time: 03:19 Bed 15 Private MD: ED Physician Naif Blakely HPI: 06/24 04:55 This 47 yrs old Male presents to ER via Wheelchair with complaints of britney Anxiety. 04:55 The patient has shortness of breath at rest, with light activity. Onset: The britney symptoms/episode began/occurred 9 day(s) ago. Duration: The symptoms are continuous, and are unchanged since they started. The patient's shortness of breath is aggravated by talking, is alleviated by nothing. Associated signs and symptoms: Pertinent positives: non-productive cough. Severity of symptoms: At their worst the symptoms were moderate in the emergency department the symptoms are unchanged. The patient or guardian reports cough, that is constant, flu symptoms, low-grade fever. Severity of symptoms: At their worst the symptoms were moderate, in the emergency department the symptoms have resolved. Modifying factors: The symptoms are alleviated by. Historical: - Allergies: 03:33 Ativan (anxious); kl 03:33 Dilantin; kl - PMHx: 03:33 CHF; COPD; Diabetes - NIDDM; Seizures; Hypertensive disorder; kl - PSHx: 03:33 None; kl - Immunization history:: Adult Immunizations not up to date. - Social history:: Smoking status: Patient reports the use of cigarette tobacco products, smokes one-half pack cigarettes per day. - Family history:: not pertinent. ROS: 04:55 Constitutional: Negative for fever, chills, and weight loss, Eyes: Negative for injury, britney pain, redness, and discharge, ENT: Negative for injury, pain, and discharge, Neck: Negative for injury, pain, and swelling, Respiratory: Negative for shortness of breath, cough, wheezing, and pleuritic chest pain, Abdomen/GI: Negative for abdominal pain, nausea, vomiting, diarrhea, and constipation, Back: Negative for injury and pain, : Negative for injury, bleeding, discharge, and swelling, MS/Extremity: Negative for injury and deformity, Skin: Negative for injury, rash, and discoloration, Neuro: Negative for headache, weakness, numbness, tingling, and seizure, Psych: Negative for depression, anxiety, suicide ideation, homicidal ideation, and hallucinations, Allergy/Immunology: Negative for hives, rash, and allergies, Endocrine: Negative for neck swelling, polydipsia, polyuria, polyphagia, and marked weight changes, Hematologic/Lymphatic: Negative for swollen nodes, abnormal bleeding, and unusual bruising. 04:55 Cardiovascular: Positive for orthopnea. Exam: 04:55 Constitutional: This is a well developed, well nourished patient who is awake, alert, britney and in no acute distress. Head/Face: Normocephalic, atraumatic. Eyes: Pupils equal round and reactive to light, extra-ocular motions intact. Lids and lashes normal. Conjunctiva and sclera are non-icteric and not injected. Cornea within normal limits. Periorbital areas with no swelling, redness, or edema. ENT: Nares patent. No nasal discharge, no septal abnormalities noted. Tympanic membranes are normal and external auditory canals are clear. Oropharynx with no redness, swelling, or masses, exudates, or evidence of obstruction, uvula midline. Mucous membranes moist. Neck: Trachea midline, no thyromegaly or masses palpated, and no cervical lymphadenopathy. Supple, full range of motion without nuchal rigidity, or vertebral point tenderness. No Meningismus. Chest/axilla: Normal chest wall appearance and motion. Nontender with no deformity. No lesions are appreciated. Abdomen/GI: Soft, non-tender, with normal bowel sounds. No distension or tympany. No guarding or rebound. No evidence of tenderness throughout. Back: No spinal tenderness. No costovertebral tenderness. Full range of motion. Male : Normal genitalia with no discharge or lesions. Skin: Warm, dry with normal turgor. Normal color with no rashes, no lesions, and no evidence of cellulitis. MS/ Extremity: Pulses equal, no cyanosis. Neurovascular intact. Full, normal range of motion. Neuro: Awake and alert, GCS 15, oriented to person, place, time, and situation. Cranial nerves II-XII grossly intact. Motor strength 5/5 in all extremities. Sensory grossly intact. Cerebellar exam normal. Normal gait. Psych: Awake, alert, with orientation to person, place and time. Behavior, mood, and affect are within normal limits. 04:55 Cardiovascular: Rate: tachycardic, actual rate is 105 bpm, Rhythm: regular, Pulses: Pulses are 4+ in . Heart sounds: normal, Edema: JVD: is not appreciated. Vital Signs: 03:31 BP 199 / 117; Pulse 105; Resp 18; Temp 98.3(TE); Pulse Ox 97% on R/A; Weight 105.23 kg; kl Height 5 ft. 11 in. (180.34 cm); Pain 0/10; 05:22 BP 213 / 116; Pulse 90; Resp 17 S; Pulse Ox 100% on R/A; as6 03:31 Body Mass Index 32.36 (105.23 kg, 180.34 cm) kl MDM: 03:41 Patient medically screened. britney 04:58 Differential diagnosis: Anemia Anxiety Reaction asthma, Bronchitis CHF exacerbation, britney Chronic Obstructive Pulmonary Disease Myocardial Infarction pulmonary edema, Pulmonary Embolism reactive airway disease, Unstable Angina. Antibiotic administration: The patient is discharged and will get outpatient antibiotics. The patient's [place] Deep Vein Thrombosis Score was calculated as follows: Heart Rate >100 BPM (1.5 Pts). Differential Diagnosis: Bronchitis Influenza Upper Respiratory Infection Sinusitis Pharyngitis. The patient's pulmonary embolism risk score was calculated as follows: the patients heart rate is greater than 100 beats per minute (1.5 Pts). Immunization status:. Data reviewed: vital signs, nurses notes. Data interpreted: nuclear monitoring technician: rate is 105 beats/min, rhythm is regular, Pulse oximetry: on room air is 97 %. Counseling: I had a detailed discussion with the patient and/or guardian regarding: the historical points, exam findings, and any diagnostic results supporting the discharge/admit diagnosis, the need for outpatient follow up, for definitive care, a ocular care aide, a manager radiation. ED course: pt wants nothing done as far as a cardiac workup done, i dont care if this cardiac ot pulmonary, 1 want something for this damn anxiety and i want to go home. 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 failure britney - Obesity due to excess calories britney - Tobacco abuse counseling britney - Tobacco use britney - Essential (primary) hypertension britney Followup: britney - With: Private Physician - When: Upon discharge from the Emergency Department - Reason: Recheck today's complaints, Continuance of care, Re-evaluation by your physician Followup: britney - With: Kip Judd MD - When: Upon discharge from the Emergency Department - Reason: Recheck today's complaints, Continuance of care Followup: britney - With: Silvino Braun MD - When: 2 - 3 days - Reason: Recheck today's complaints, Re-evaluation by your physician Discharge Instructions: - Discharge Summary Sheet britney - Panic Attack britney - Chronic Bronchitis, Adult britney - Chronic Obstructive Pulmonary Disease britney - Heart Failure, Diagnosis britney - Hypertension, Adult britney - Steps to Quit Smoking britney - Health Risks of Smoking britney - Chronic Obstructive Pulmonary Disease Exacerbation britney - Chronic Obstructive Pulmonary Disease, [id number] britney - Hypertension, Adult, [id number] britney - Steps to Quit Smoking, [id number] britney - Panic Attack, [id number] britney - Managing Your Hypertension britney - Supporting Someone With Anxiety britney - Managing Anxiety, Adult britney Forms: - Medication Reconciliation Form britney - Thank You Letter britney - Antibiotic Education britney - Prescription Opioid Use britney Prescriptions: - Xanax 1 mg Oral Tablet - take 1 tablet by ORAL route every 8 hours As needed; 20 tablet; Refills: 0, britney Product Selection Permitted Signatures: Cait Brennan, RN Naif Yeager MD MD cha Slawson, Ashby, RN RN as6
--- NOTE | 2022-06-24 05:04 | ER ---
Nurse[facility] Name: Seth Smith Age: 47 yrs Sex: Male : 1975 Arrival Date: 06/24/2022 Time: 03:19 Bed 15 Private MD: Diagnosis: Anxiety disorder, unspecified;Panic disorder [episodic paroxysmal anxiety] without agoraphobia;COPD/ Chronic obstructive pulmonary disease with (acute) exacerbation;COPD/ Chronic obstructive pulmonary disease, unspecified;Unspecified combined systolic (congestive) and diastolic (congestive) heart failure;Obesity due to excess calories;Tobacco abuse counseling;Tobacco use;Essential (primary) hypertension Presentation: 06/24 03:31 Chief complaint: Patient states: anxiety x 9 days worse tonight. Coronavirus screen: Vaccine status: Patient reports being unvaccinated. Ebola Screen: Patient negative for fever greater than or equal to 101.5 degrees Fahrenheit, and additional compatible Ebola Virus Disease symptoms. 03:31 Method Of Arrival: Wheelchair 03:54 Initial Sepsis Screen: Does the patient meet any 2 criteria? No. Patient's initial as6 sepsis screen is negative. Does the patient have a suspected source of infection? No. Patient's initial sepsis screen is negative. Risk Assessment: Do you want to hurt yourself or someone else? Patient reports no desire to harm self or others. Onset of symptoms was June 15, 2022. 03:54 Acuity: MARKUS 3 as6 Triage Assessment: 03:34 General: Appears distressed, uncomfortable, Behavior is anxious. Pain: Denies pain. kl Historical: - Allergies: 03:33 Ativan (anxious); kl 03:33 Dilantin; kl - PMHx: 03:33 CHF; COPD; Diabetes - NIDDM; Seizures; Hypertensive disorder; kl - PSHx: 03:33 None; kl - Immunization history:: Adult Immunizations not up to date. - Social history:: Smoking status: Patient reports the use of cigarette tobacco products, smokes one-half pack cigarettes per day. - Family history:: not pertinent. Screenin:43 Abuse screen: Denies threats or abuse. Denies injuries from another. Nutritional as6 screening: No deficits noted. Tuberculosis screening: No symptoms or risk factors identified. Fall Risk None identified. Assessment: 03:42 General: Appears in no apparent distress. Behavior is cooperative, anxious. Pain: as6 Denies pain. Neuro: Level of Consciousness is awake, alert. Respiratory: Respiratory effort is even, unlabored, Respiratory pattern is tachypnea. GI: Reports nausea. 04:59 General: pt refusing testing. "I only want something for anxiety" . as6 Vital Signs: 03:31 BP 199 / 117; Pulse 105; Resp 18; Temp 98.3(TE); Pulse Ox 97% on R/A; Weight 105.23 kg; Height 5 ft. 11 in. (180.34 cm); Pain 0/10; 05:22 BP 213 / 116; Pulse 90; Resp 17 S; Pulse Ox 100% on R/A; as6 03:31 Body Mass Index 32.36 (105.23 kg, 180.34 cm) ED Course: 03:19 Patient arrived in ED. bp1 03:38 Polo Joseph RN is Primary Nurse. as6 03:41 Naif Blakely MD is Attending Physician. britney 03:42 Arm band placed on. as6 03:43 Bed in low position. Call light in reach. Side rails up X2. Client placed on continuous as6 cardiac and pulse oximetry monitoring. NIBP monitoring applied. 03:54 Triage completed. as6 04:22 night monitor on. 05:03 Kip Judd MD is Referral Physician. britney 05:04 Silvino Braun MD is Referral Physician. britney 05:23 No provider procedures requiring assistance completed. Patient did not have IV access as6 during this emergency room visit. Administered Medications: 05:02 Drug: Valium (diazepam) 10 mg Route: PO; as6 05:22 Follow up: Response: No adverse reaction as6 Medication: 05:23 VIS not applicable for this client. as6 Outcome: 05:03 Discharge ordered by . [facility] 05:23 Discharged to home ambulatory. as6 05:23 Condition: stable 05:23 Discharge instructions given to patient, Instructed on discharge instructions, follow up and referral plans. medication usage, Demonstrated understanding of instructions, follow-up care, medications, Prescriptions given X 1. 05:23 Patient left the ED. as6 Signatures: Cait Brennan RN RN kl Anderson, Corey, MD MD cha Paniauga, Brittany bp1 Lobato, Polo Lugo, RN RN as6
[2022-06-24] MEDS ORDERED: DIAZEPAM 5 MG TABLET ONE (05:10)
[2022-06-24 05:29] VITALS: TEMP 98.3
[2022-06-24 05:33] VITALS: BP 213/116; O2SAT 100
== END 2022-06-24 05:23 | disposition home or self-care (01) ==
LOC: ER 03:17
DX: F41.0 Panic disorder [episodic paroxysmal anxiety] (principal); F41.9 Anxiety disorder, unspecified; J44.1 Chronic obstructive pulmonary disease with (acute) exacerbation; I50.9 Heart failure, unspecified; E66.09 Other obesity due to excess calories; Z68.32 Body mass index [BMI] 32.0-32.9, adult; I10 Essential (primary) hypertension; Z72.0 Tobacco use; Z71.6 Tobacco abuse counseling; Z88.8 Allergy status to other drugs, medicaments and biological substances
CPT/HCPCS: 99284

== ENCOUNTER 2022-06-25 07:55 | Inpatient (IN) | payer SELFPAY ==
--- OUTSIDE RECORDS SUMMARY | 2022-06-25 07:57 | XMS REPORT | Continuity of Care Document ---
:1975 Author Organization [facility] t Address [address] [place] [address] Care Team Providers Name Role Phone Asked, No Pcp Primary Care Physician Unavailable Doctor Unassigned, [place] Attending Clinician Unavailable MD JOCELINE CASTELLANOS Attending Clinician Unavailable JOCELINE CASTELLANOS Attending Clinician Unavailable TODD Attending Clinician Unavailable Quin Mcdonald Attending Clinician MD MARY BERGERON Admitting Clinician Unavailable MARY BERGERON Admitting Clinician Unavailable TODD Admitting Clinician Unavailable Payers Payer Name Policy Type Policy Number Effective Date Expiration Date S ource Problems Condition Condition Condition Status Onset Resolution Last Treating Co mments Source Name Details Category Date Date Treatment Clinician Date Congestive Congestive Disease Active [facility] heart heart [facility] st failure failure 00:00: Hosp[facility] 00 l Chest pain Chest pain Disease Active 2016-0 M [facility] 7-13 st 00:00: Hospita 00 l Allergies, Adverse Reactions, Alerts Allergy Allergy Status Severity Reaction(s) Onset Inactive Treating Comm ents Source Name Type Date Date Clinician LORAZEPA DRUG Active Other-Cmnt 0 Univ ers M INGREDI 3-10 ity of 00:[facility]: [place] [facility] Lorazepa Propensi Active Other - See 2019-0 U nivers m ty to comments 3-10 ity of adverse 00:00: [place] reaction 00 Medical s Branch Lorazepa Propensi Active Other (See 2020-0 Me thodi m ty to Comments) 3-10 st adverse 00:00: Hospita reaction 00 l s to drug NO KNOWN Drug Active [facility] ALLERGIE Class ity of S [facility] Social History Social Habit Start Date Stop Date Quantity Comments Source History of Smokes tobacco [facility] tobacco use daily Hospital Alcohol intake 2021-02-06 2021-02-06 Current drinker [facility] 00:00:00 00:00:00 of alcohol Hospital (finding) Tobacco use and 2021-02-06 2021-02-06 Smokeless tobacco [facility] exposure 00:00:00 00:00:00 non-user Hospital Sex Assigned At [birth year] [facility] 00:00:00 00:00:00 Hospital Smoking Status Start Date Stop Date Source Unknown if ever smoked [facility] Smokes tobacco daily 2021-02-06 00:00:00 [facility] Medications Ordered Filled Start Stop Current Ordering Indication Dosage Frequency Signature Comments Components Source Medication Medication Date Date Medication? Clinician (SIG) Name Name BUMETanide Yes 1mg Q.5D Take 1 mg Me thodi (BUMEX) 1 4-[address] [facility] tablet 11:36: (two) Hospita 41 times a l day. LORAZepam Yes .5mg Q6H Take 0.5 Meth [...] (two) Hospita 41 times a l day. LORAZepam Yes .5mg Q6H Take 0.5 Meth [...] skin Hospita mg/24 hr 41 daily. l Entresto Yes 1{tbl} Q.5D Take 1 Metho di 49-51 mg 3-[address] tablet per 00:00: mouth 2 [facility] tablet 00 (two) l times a day. Entresto Yes 1{tbl} Q.5D Take 1 Metho di 49-51 mg 3-[address] tablet per 00:00: mouth 2 [facility] tablet 00 (two) l times a day. Vital Signs Vital Name Observation Time Observation Value Comments Source Respiratory rate 2019-12-28 23:09:00 20 /min [facility] Body weight 2019-12-28 23:09:00 117.935 kg [facility] Oxygen saturation in 2019-12-28 23:09:00 100 /min [facility] Arterial blood by [facility] Pulse oximetry Branch Systolic blood 2019-12-28 23:09:00 200 mm[Hg] Univer sity of pressure [facility] Diastolic blood 2019-12-28 23:09:00 117 mm[Hg] [facility] Heart rate 2019-12-28 23:09:00 109 /min [facility] Body temperature 2019-12-28 23:09:00 36.78 Poly [facility] Respiratory rate 2019-12-28 23:09:00 20 /min [facility] Body weight 2019-12-28 23:09:00 117.935 kg [facility] Oxygen saturation in 2019-12-28 23:09:00 100 /min [place] of Arterial blood by [facility] Pulse oximetry Branch Systolic blood 2019-12-28 23:09:00 200 mm[Hg] Univer sity of pressure [facility] Diastolic blood 2019-12-28 23:09:00 117 mm[Hg] Unive rsity of pressure [facility] Heart rate 2019-12-28 23:09:00 109 /min [facility] Body temperature 2019-12-28 23:09:00 36.78 Poly Univ ersity [facility] Procedures Procedure Date / Time Performed Performing Clinician Sourc e EXTERNAL PROVIDER - 2021-12-27 06:01:00 Doctor Unassigned, No Un iversity [facility] ADC REFERRAL Name Medical Branch REFERRAL- 2021-11-23 06:01:00 [facility]assigned, [facility] Plan of Care Planned Activity Planned Date Details Comments Source Future Scheduled 2022-06-20 HEPATITIS B VACCINES [facility] Test 18:59:18 (1 of 3 - 3-dose series) [code = HEPATITIS B VACCINES (1 of 3 - 3-dose series)] Future Scheduled 2022-06-20 COVID-19 VACCINE (#1) [facility] Test 18:59:18 [code = COVID-19 VACCINE (#1)] Future Scheduled 2022-06-20 Pneumococcal Vaccine: [facility] Test 18:59:18 Pediatrics (0 to 5 Years) and At-Risk Patients (6 to 64 Years) (1 - PCV) [code = Pneumococcal Vaccine: Pediatrics (0 to 5 Years) and At-Risk Patients (6 to 64 Years) (1 - PCV)] Future Scheduled 2022-06-[address] [facility] Test 18:59:18 [code = COLONOSCOPY SCREENING] Future Scheduled 2022-06-20 INFLUENZA VACCINE Method [facility] Test 18:59:18 [code = INFLUENZA VACCINE] Future Scheduled 2022-06-20 HEPATITIS B VACCINES [facility] Test 18:59:18 (1 of 3 - 3-dose series) [code = HEPATITIS B VACCINES (1 of 3 - 3-dose series)] Future Scheduled 2022-06-20 COVID-19 VACCINE (#1) [facility] Test 18:59:18 [code = COVID-19 VACCINE (#1)] Future Scheduled 2022-06-20 Pneumococcal Vaccine: [facility] Test 18:59:18 Pediatrics (0 to 5 Years) and At-Risk Patients (6 to 64 Years) (1 - PCV) [code = Pneumococcal Vaccine: Pediatrics (0 to 5 Years) and At-Risk Patients (6 to 64 Years) (1 - PCV)] Future Scheduled 2022-06-20 COLONOSCOPY SCREENING [facility] Test 18:59:18 [code = COLONOSCOPY SCREENING] Future Scheduled 2022-06-20 INFLUENZA VACCINE [facility] Test 18:59:18 [code = INFLUENZA VACCINE] Encounters Start End Encounter Admission Attending Care Care Encounter Source Date/Time Date/Time Type Type Clinicians Facility Department ID 2021-12-27 2021-12-27 Orders Doctor MARI [id number] Univers 00:00:00 00:00:00 Only Unassigned, CRISTIAN [id number] ity of [place] [facility] [id number] Dannie as [id number] [facility] 009 Branch 2021-11-23 2021-11-23 Orders Doctor MARI [id number] Univers 00:00:00 00:00:00 Only Unassigned, CRISTIAN [id number] ity of [place] [facility] [id number] Dannie as [id number] [place] [address] Branch 2021-02-06 2021-02-06 Outpatient [facility] [id number] [place] [address] 00:00:00 00:00:00 JOCELINE [address] 2020-12-22 2020-12-22 Outpatient [facility] [id number] [place] 10:38:00 10:38:00 305 [facility] 2019-12-28 2019-12-28 Emergency [facility] [id number] 18:15:10 20:22:00 Quin Lua [id number] [place] [id number] Guin [id number] 2019-12-28 2019-12-28 Emergency [facility] [id number] Univers 18:15:10 20:22:00 Quin Lua [id number] ity of [place] [id number] [facility] [phone] [facility] 084 Branch 2019-12-28 2019-12-28 Emergency X [facility] ERT [id number] Univers 17:31:00 17:31:00 ity [facility] Results Test Description Test Time Test Comments Results Result Comments Source SARS-CoV-2 (COVID-19) RNA [Presence] in Respiratory sp ecimen by 2021-02-06 13:29:01 GUERA with probe detection Test Item Value Reference Range Interpretation Comme nts SARS-CoV-2 (COVID-19) RNA [Presence] in Respiratory Not detected No t-Detected specimen by GUERA with probe detection (test code = 49044-3) Whether patient is employed in a healthcare setting (test code = 10347-1) Whether the patient has symptoms related to condition of interest (test code = 80512-3) Patient was hospitalized because of this condition (test code = 21817-3) Whether the patient was admitted to intensive care unit (ICU) for condition of interest (test code = 29736-2) Whether patient resides in a congregate care setting (test code = 74251-3)
--- NOTE | 2022-06-25 08:38 | RAD REPORT ---
EXAM DESCRIPTION: RAD - Chest Single View - 06/25/2022 8:27 am CLINICAL HISTORY: DYSPNEA COMPARISON: Portable 05/17/2022 ; portable 12/09/2019 TECHNIQUE: AP portable chest image was obtained 06/25/2022 8:27 am . FINDINGS: Lung volumes are similar to prior study with no focal mass or consolidation identifiable. Diffusely prominent interstitial pattern seen. Interstitial pattern is slightly less prominent than t he May 17 examination. Heart size is mildly enlarged but stable. Central vasculature is prominent. No measurable pleural effusion and no pneumothorax. No acute bony abnormality seen. No acute aortic findings suspected. IMPRESSION: Heart, vasculature and lung markings are all prominent. This pattern has been seen previ ously in this patient. Mild failure or volume overload can create this presentation. Superimposed interstitial infiltrate ca nnot be excluded.
[2022-06-25] MEDS ORDERED: FUROSEMIDE 100 MG/10 ML VIAL IV ONE (08:47)
[2022-06-25 08:56] LABS: Absolute Lymphocytes (CBC) 1.8 K/uL (0.7-4.9); Hematocrit 39.3 % (39.6-49.0); Lymphocytes % 18.2 % (15.3-44.8); MCV 85.4 fL (80-100); MPV 8.9 fL (7.6-11.3); RBC Red Blood Cell Count 4.61 M/uL (4.33-5.43)
[2022-06-25] MEDS ORDERED: DIAZEPAM 5 MG TABLET ONE (09:18)
[2022-06-25] MEDS ORDERED: NITROGLYCERIN 1 GM PKT TD ONE (09:48)
[2022-06-25 09:49] LABS: Albumin 3.7 g/dL (3.4-5.0); Bilirubin Direct 0.2 mg/dL (0-0.2); Bilirubin Total 0.7 mg/dL (0.2-1.0); Potassium 3.7 mmol/L (3.5-5.1); Protein, Total 8.6 g/dL (6.4-8.2); Troponin High Sensitivity 54.2 pg/mL (<58.9)
--- NOTE | 2022-06-25 10:04 | ER ---
Nurse's Notes [facility] Name: Seth Smith Age: 47 yrs Sex: Male : 1975 Arrival Date: 06/25/2022 Time: 07:58 Bed 4 Private MD: Diagnosis: Unspecified combined systolic (congestive) and diastolic (congestive) heart failure;Dyspnea, unspecified;Chest pain, unspecified Presentation: 06/25 08:05 Chief complaint: Patient states: chest pain and SOB x 2 days. Coronavirus screen: kr3 Client denies travel out of the [place] in the last 14 days. Ebola Screen: Patient denies travel to an Ebola-affected area in the 21 days before illness onset. Initial Sepsis Screen:. 08:05 Method Of Arrival: Ambulatory kr3 08:05 Acuity: MARKUS 3 kr3 08:05 Acuity: MARKUS 2 kr3 Triage Assessment: 08:09 General: Appears distressed, uncomfortable, Behavior is calm, cooperative, appropriate kr3 for age. Pain: Complains of pain in chest Pain currently is 5 out of 10 on a pain scale. Cardiovascular: Reports chest pain. Historical: - Allergies: 08:08 Dilantin; kr3 08:08 Ativan (anxious); kr3 - PMHx: 08:08 Seizures; Hypertensive disorder; Diabetes - NIDDM; COPD; CHF; Gout; Rheumatoid kr3 arthritis; - Immunization history:: Adult Immunizations up to date. - Social history:: Smoking status: Patient reports the use of cigarette tobacco products, smokes one-half pack cigarettes per day. - Family history:: not pertinent. - Hospitalizations: : No recent hospitalization is reported. Screenin:10 Abuse screen: Denies threats or abuse. Denies injuries from another. Nutritional bp screening: No deficits noted. Tuberculosis screening: No symptoms or risk factors identified. Fall Risk None identified. Assessment: 08:10 General: SEE TRIAGE NOTE. bp 09:28 Reassessment: No changes from previously documented assessment. Patient and/or family bp updated on plan of care and expected duration. Pain level reassessed. 10:17 Reassessment: ADMIT INITIATED. bp Vital Signs: 08:05 BP 199 / 126; Pulse 113; Resp 22; Temp 98.2; Pulse Ox 96% on R/A; Weight 104.33 kg; kr3 Height 5 ft. 11 in. (180.34 cm); 09:27 BP 206 / 117; Pulse 111; Resp 19; Pulse Ox 95% on R/A; bp 10:16 BP 207 / 112; Pulse 104; Resp 24; Pulse Ox 94% ; bp 11:01 BP 182 / 95; Pulse 100; Resp 16; Pulse Ox 96% ; bp 08:05 Body Mass Index 32.08 (104.33 kg, 180.34 cm) kr3 ED Course: 07:58 Patient arrived in ED. mr 08:05 Ronit Lara, RN is Primary Nurse. kr3 08:05 Demetrius Terry MD is Attending Physician. rn 08:08 Triage completed. kr3 08:10 Arm band placed on. bp 08:10 Patient has correct armband on for positive identification. Bed in low position. Call bp light in reach. Side rails up X2. Client placed on continuous cardiac and pulse oximetry monitoring. NIBP monitoring applied. 08:29 XRAY Chest (1 view) In Process Unspecified. EDMS 08:30 Inserted saline lock: 22 gauge in left forearm, using aseptic technique. Blood bp collected. 10:04 Jovanny Morin is Hospitalizing Provider. rn 11:01 Primary Nurse role handed off by Ronit Lara RN bp 11:01 Long Trotter, CAROLA is Primary Nurse. bp Administered Medications: 08:43 Drug: Lasix (furosemide) 60 mg Route: IVP; Site: left forearm; bp 09:06 Follow up: Response: No adverse reaction bp 09:09 Drug: Valium (diazepam) 5 mg Route: PO; [facility] 11:05 Follow up: Response: No adverse reaction bp 09:45 Drug: Nitro-Bid (nitroglycerin) Ointment 2 % 1 inches Route: Transdermal; Site: bp anterior chest wall; Medication: 08:10 VIS not applicable for this client. bp Outcome: 10:04 Decision to Hospitalize by Provider. rn 14:36 Patient left the ED. ll1 Signatures: Dispatcher [employer] [facility] [employer]now mr Demetrius Terry MD MD rn Peltier, Brian, RN RN bp Lewis, Lynsay, RN RN 1 Lexii Ferreira RN RN 5 Ronit Lara RN RN 3
--- NOTE | 2022-06-25 10:05 | EDPHYS ---
Physician Documentation [facility] Name: Seth Smith Age: 47 yrs Sex: Male : 1975 Arrival Date: 06/25/2022 Time: 07:58 Bed 4 Private MD: ED Physician Demetrius Terry HPI: 06/25 08:18 This 47 yrs old Male presents to ER via Ambulatory with complaints of Chest Pain, rn Shortness Of Breath. 08:18 The patient or guardian reports chest pain that is located primarily in the. rn 08:18 The patient has shortness of breath at rest, with light activity. Onset: The rn symptoms/episode began/occurred 1 week(s) ago. Duration: The symptoms are continuous. The patient's shortness of breath is aggravated by exertion, light activity, supine position, talking, walking, is alleviated by nothing. Severity of symptoms: At their worst the symptoms were moderate in the emergency department the symptoms are unchanged. The patient has experienced similar episodes in the past. The patient has been recently seen by a physician:. Pt reports recent admission at [facility] for 1 night, for CHF exacerbation, felt a little better, but unable to fill medications including diuretic for last few months. No fever. + sob with cough/white sputum. No trauma.. Historical: - Allergies: 08:08 Dilantin; kr3 08:08 Ativan (anxious); kr3 - PMHx: 08:08 Seizures; Hypertensive disorder; Diabetes - NIDDM; COPD; CHF; Gout; Rheumatoid kr3 arthritis; - Immunization history:: Adult Immunizations up to date. - Social history:: Smoking status: Patient reports the use of cigarette tobacco products, smokes one-half pack cigarettes per day. - Family history:: not pertinent. - Hospitalizations: : No recent hospitalization is reported. ROS: 08:18 Constitutional: Negative for fever, chills, and weight loss, Eyes: Negative for injury, rn pain, redness, and discharge, Cardiovascular: Negative for palpitations Respiratory: + sob and cough Abdomen/GI: Negative for abdominal pain, nausea, vomiting, diarrhea, and constipation, Back: Negative for injury and pain, MS/Extremity: Negative for injury and deformity, Skin: Negative for injury, rash, and discoloration, Neuro: Negative for headache, weakness, numbness, tingling, and seizure. 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 + moderate tachypnea Head/Face: Normocephalic, atraumatic. ENT: No stridor Cardiovascular: Tachycardic, irregular Respiratory: + moderate tachypnea, + diminished breath sounds at bases Abdomen/GI: soft, non-tender Skin: Warm, dry MS/ Extremity: Pulses equal, no cyanosis Neuro: Awake and alert, GCS 15, oriented to person, place, time, and situation. Cranial nerves II-XII grossly intact. Motor strength 5/5 in all extremities. Sensory grossly intact. Cerebellar exam normal. Normal gait. 19:06 ECG was reviewed by the Attending Physician. rn Vital Signs: 08:05 BP 199 / 126; Pulse 113; Resp 22; Temp 98.2; Pulse Ox 96% on R/A; Weight 104.33 kg; kr3 Height 5 ft. 11 in. (180.34 cm); 09:27 BP 206 / 117; Pulse 111; Resp 19; Pulse Ox 95% on R/A; bp 10:16 BP 207 / 112; Pulse 104; Resp 24; Pulse Ox 94% ; bp 11:01 BP 182 / 95; Pulse 100; Resp 16; Pulse Ox 96% ; bp 08:05 Body Mass Index 32.08 (104.33 kg, 180.34 cm) kr3 MDM: 08:06 Patient medically screened. rn 10:03 Differential diagnosis: CHF exacerbation, Myocardial Infarction pneumonia, Pneumothorax rn pulmonary edema. Data reviewed: vital signs, nurses notes, lab test result(s), EKG, radiologic studies, plain films, and as a result, I will admit patient. Counseling: I had a detailed discussion with the patient and/or guardian regarding: the historical points, exam findings, and any diagnostic results supporting the discharge/admit diagnosis, lab results, radiology results, the need for further work-up and treatment in the hospital. Response to treatment: the patient's symptoms have mildly improved after treatment, and as a result, I will admit patient. Admission orders: after a detailed discussion of the patient's condition and case, the admit orders are written by me. 11:37 ED course: Still unable to get a hold of Dr. Morin for admission. rn 11:45 ED course: Dr. Morin notified of admission.. rn 06/25 08:15 Order name: Basic Metabolic Panel; Complete Time: 10:03 rn 06/25 08:15 Order name: CBC with Diff; Complete Time: 09:05 rn 06/25 08:15 Order name: LFT's; Complete Time: 10:03 rn 06/25 08:15 Order name: NT PRO-BNP; Complete Time: 10:03 rn 06/25 08:15 Order name: Troponin HS; Complete Time: 10:03 rn 06/25 10:15 Order name: SARS RAPID em1 06/25 08:15 Order name: XRAY Chest (1 view); Complete Time: 08:45 rn 06/25 08:15 Order name: EKG; Complete Time: 08:15 rn 06/25 08:15 Order name: Cardiac monitoring; Complete Time: 08:42 rn 06/25 08:15 Order name: EKG - Nurse/Tech; Complete Time: 08:43 rn 06/25 12:45 Order name: SARS-COV-2 Antigen Rapid EDMS 06/25 08:15 Order name: IV Saline Lock; Complete Time: 08:43 rn 06/25 08:15 Order name: Labs collected and sent; Complete Time: 08:43 rn 06/25 08:15 Order name: O2 Per Protocol; Complete Time: 08:43 rn 06/25 08:15 Order name: O2 Sat Monitoring; Complete Time: 08:43 rn 06/25 09:07 Order name: Labs - recollect needed: please recollect chemistry; Complete Time: 09:27 em1 EC:06 Rate is 113 beats/min. Rhythm is regular. QRS [place] is Normal. CO interval is normal. rn QRS interval is normal. QT interval is normal. No Q waves. T waves are Normal. No ST changes noted. Clinical impression: Sinus tachycardia. Interpreted by me. Reviewed by me. Administered Medications: 08:43 Drug: Lasix (furosemide) 60 mg Route: IVP; Site: left forearm; bp 09:06 Follow up: Response: No adverse reaction bp 09:09 Drug: Valium (diazepam) 5 mg Route: PO; jh5 11:05 Follow up: Response: No adverse reaction bp 09:45 Drug: Nitro-Bid (nitroglycerin) Ointment 2 % 1 inches Route: Transdermal; Site: bp anterior chest wall; Disposition Summary: 06/25/22 10:04 Hospitalization Ordered Hospitalization Status: Observation rn Provider: Jovanny Morin rn Location: Telemetry/MedSurg (observation) rn Condition: Stable rn Problem: new rn Symptoms: have improved rn Bed/Room Type: Standard rn Room Assignment: rn Diagnosis - Unspecified combined systolic (congestive) and diastolic (congestive) heart failure rn - Dyspnea, unspecified rn - Chest pain, unspecified rn Forms: - Medication Reconciliation Form rn - SBAR form rn Signatures: Dispatcher [employer] EDMS Demetrius Terry MD MD rn Martinez, Irving em1 Long Trotter RN RN Lexii Peace, RN RN jh5 Ronit Lara RN RN kr3
--- NOTE | 2022-06-25 12:35 | P.HP ---
Certification for Inpatient Patient admitted to: Inpatient Practitioner: I am a practitioner with admitting privileges, knowledge of patient current condition, hospital course, and medical plan of care. Services: Services provided to patient in accordance with Admission requirements found in Title 42 Section 412.3 of the Code of Federal Regulations Patient History Date of Service: 06/25/22 Reason for admission: Shortness of breath History of Present Illness: 47-year-old gentleman with a history of chronic diastolic heart failure and pulmonary hypertension presented to the emergency department with a complaint of 1 week of progressive shortness of breath. Patient was hospitalized 2 months ago for CHF exacerbation. Echocardiogram at that time showed EF of 55 to 60% and severe pulmonary hypertension. He was discharged with Coreg, lisinopril and Lasix. Patient stated he is homeless and has run out of his medication since the past 3 months. It appears patient did not fill his medications after discharge from hospital. Chest x-ray done which showed increased interstitial markings, not much change from previous image. BNP is elevated, serum creatinine is 1.6 which is baseline. Patient given a dose of IV Lasix and hospitalized for further management of CHF exacerbation. Allergies lorazepam [From Ativan] Allergy (Verified 11/20/20 02:18) Itching/Hives/Rash phenytoin [From Dilantin] Allergy (Verified 11/20/20 02:18) Itching/Hives/Rash Home Medications: NPH, Human Insulin Isophane [Humulin N] 10 unit SQ BID #1 vial 11/20/20 Nicotine [Nicoderm Cq] 1 each TD DAILY #30 patch.td24 11/20/20 Albuterol Sulfate [Proair Hfa] 2 puff IH TID PRN #1 hfa.aer.ad 05/18/22 Aspirin [Aspirin EC 81 MG] 81 mg PO DAILY 90 Days #90 05/18/22 Atorvastatin Calcium [Lipitor] 40 mg PO BEDTIME #30 tab 05/18/22 Fluticasone Propion/Salmeterol [Airduo Digihaler 113-14 Mcg] 1 each IH BID #1 aer.pw.bas 05/18/22 Furosemide [Lasix] 40 mg PO BIDL #60 tab 05/18/22 carvediloL [Coreg] 25 mg PO BID 30 Days #60 tab 05/18/22 lisinopriL [Lisinopril] 20 mg PO DAILY 30 Days #30 05/18/22 - Past Medical/Surgical History Diabetic: Yes -: Hypertension -: Diabetes -: Gout -: CHF -: COPD -: Right Forearm Psychosocial/ Personal History: Patient reports recent homelessnes. - Family History Father -: Hypertension Mother -: Hypertension, Diabetes - Social History Alcohol use: No CD- Drugs: Yes Caffeine use: Yes Review of Systems Other: He denied any chest pain, denied any abdominal pain, no nausea vomiting or diarrhea. Except as documented, all other systems reviewed and negative. Physical Examination - Physical Exam General: Alert, Oriented x3, Mild distress HEENT: PERRLA, Mucous membr. moist/pink, Sclerae nonicteric Neck: Supple, JVD not distended Respiratory: Diminished (Bilateral) Cardiovascular: Regular rate/rhythm, Normal S1 S2, Edema (1+ bilateral lower extremities) Capillary refill: <2 Seconds Gastrointestinal: Normal bowel sounds, Soft and benign, Non-distended, No tenderness Musculoskeletal: No tenderness Integumentary: No cyanosis, Other (Bilateral lower extremity venous stasis dermatitis//ulcers) Neurological: Normal speech, Normal strength at 5/5 x4 extr, Cranial nerves 3-12 intact Lymphatics: No axilla or inguinal lymphadenopathy - Studies Laboratory Data (last 24 hrs) 06/25/22 09:23: Sodium 135 L, Potassium 3.7, BUN 23 H, Creatinine 1.67 H, Glucose 206 H, Total Bilirubin 0.7, AST 15, ALT 24, Alkaline Phosphatase 103 06/25/22 08:30: WBC 9.80, Hgb 13.5 L, Hct 39.3 L, Plt Count 223 Assessment and Plan - Problems (Diagnosis) (1) Acute on chronic diastolic heart failure Current Visit: Yes Status: Acute (2) Pulmonary hypertension Current Visit: Yes Status: Acute (3) Hypertension Current Visit: No Status: Chronic Qualifiers: Hypertension type: primary hypertension Qualified Code(s): I10 - Essential (primary) hypertension (4) Type 2 diabetes mellitus Current Visit: No Status: Chronic Qualifiers: Diabetes mellitus longterm insulin use: with longterm use Diabetes mellitus complication status: with kidney complications Diabetes mellitus complication detail: with chronic kidney disease Chronic kidney disease stage: stage 3 (moderate) Chronic kidney disease stage 3 subtype: stage 3a (GFR 45- 59) Qualified Code(s): E11.22 - Type 2 diabetes mellitus with diabetic chronic kidney disease; N18.31 - Chronic kidney disease, stage 3a; 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 Start IV Lasix. Blood pressure control with lisinopril and Coreg. Oxygen therapy as needed. Monitor and optimize electrolyte. Follow renal function while on IV Lasix. Emphasized compliance with medications. Monitor response to treatment. - Advance Directives Does patient have a Living Will: No Does patient have a Durable POA for Healthcare: No
[2022-06-25 12:44] LABS: SARS-CoV-2 Antigen Rapid Res Negative (Negative)
[2022-06-25 14:44] VITALS: TEMP 98.2
[2022-06-25 14:51] VITALS: BP 182/95; O2SAT 96
--- NOTE | 2022-06-25 19:23 | P.DS ---
Admission Date: 06/25/22 Discharge Date: 06/25/22 Disposition: AMA-LEFT AGAINST MEDICAL ADVIC Discharge Condition: FAIR Reason for Admission: Shortness of breath - Problems (1) Acute on chronic diastolic heart failure Status: Acute (2) Pulmonary hypertension Status: Acute (3) Hypertension Status: Chronic Qualifiers: Hypertension type: primary hypertension Qualified Code(s): I10 - Essential (primary) hypertension (4) Type 2 diabetes mellitus Status: Chronic Qualifiers: Diabetes mellitus retirement insulin use: with terminal gauger use Diabetes mellitus complication status: with kidney complications Diabetes mellitus complication detail: with chronic kidney disease Chronic kidney disease stage 3 subtype: stage 3a (GFR 45-59) Qualified Code(s): E11.22 - Type 2 diabetes mellitus with diabetic chronic kidney disease; N18.31 - Chronic kidney disease, stage 3a; Z79.4 - senior care (current) use of insulin (5) Noncompliance with medication regimen Status: Acute Brief History of Present Illness: 47-year-old gentleman with a history of chronic diastolic heart failure and pulmonary hypertension presented to the emergency department with a complaint of 1 week of progressive shortness of breath. Patient was hospitalized 2 months ago for CHF exacerbation. Echocardiogram at that time showed EF of 55 to 60% and severe pulmonary hypertension. He was discharged with Coreg, lisinopril and Lasix. Patient stated he is homeless and has run out of his medication since the past 3 months. It appears patient did not fill his medications after discharge from hospital. Chest x-ray done which showed increased interstitial markings, not much change from previous image. BNP is elevated, serum creatinine is 1.6 which is baseline. Patient given a dose of IV Lasix and hospitalized for further management of CHF exacerbation. Hospital Course: Nurse called me a few hours later and stated patient signed out AGAINST MEDICAL ADVICE from the emergency department. I did not get a chance to discuss and encouraged him to stay for further treatment. Vital Signs/Physical Exam: Temp Pulse Resp BP Pulse Ox 98.2 F 100 H 16 182/95 H 06/25/22 14:42 06/25/22 14:48 06/25/22 14:48 06/25/22 14:48 Laboratory Data at Discharge: WBC 9.80 K/uL (4.3-10.9) 06/25/22 08:30 Hgb 13.5 g/dL (13.6-17.9) L 06/25/22 08:30 Hct 39.3 % (39.6-49.0) L 06/25/22 08:30 Plt Count 223 K/uL (152-406) 06/25/22 08:30 Sodium 135 mmol/L (136-145) L 06/25/22 09:23 Potassium 3.7 mmol/L (3.5-5.1) 06/25/22 09:23 BUN 23 mg/dL (7-18) H 06/25/22 09:23 Creatinine 1.67 mg/dL (0.55-1.3) H 06/25/22 09:23 Glucose 206 mg/dL (74-106) H 06/25/22 09:23 Total Bilirubin 0.7 mg/dL (0.2-1.0) 06/25/22 09:23 AST 15 U/L (15-37) 06/25/22 09:23 ALT 24 U/L (12-78) 06/25/22 09:23 Alkaline Phosphatase 103 U/L (45-117) 06/25/22 09:23 Home Medications: NK [No Home Meds] 06/27/22 Followup: Edmundo Winslow MD [Primary Care Provider] -
--- NOTE | 2022-06-26 12:50 | EKG ---
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
== END 2022-06-25 14:36 | disposition left against medical advice (07) | DRG 291 ==
LOC: ER 07:55 → ERHOLD 12:20
PROVIDERS: ADMIT Internal Medicine; ATTEND Internal Medicine
DX: I13.0 Hypertensive heart and chronic kidney disease with heart failure and stage 1 through stage 4 chronic kidney disease, or unspecified chronic kidney disease (principal); I50.33 Acute on chronic diastolic (congestive) heart failure; N18.31 Chronic kidney disease, stage 3a; E11.22 Type 2 diabetes mellitus with diabetic chronic kidney disease; I27.20 Pulmonary hypertension, unspecified; M10.9 Gout, unspecified; Z79.4 Long term (current) use of insulin; Z91.14 Patient's other noncompliance with medication regimen; Z53.29 Procedure and treatment not carried out because of patient's decision for other reasons; Z20.822 Contact with and (suspected) exposure to COVID-19
CPT/HCPCS: 36415; 71045; 80048; 80076; 83880; 84484; 85025; 87811; 93005; 96374; 99284

== ENCOUNTER 2022-06-26 17:05 | Inpatient (IN) | payer OTHER, SELFPAY ==
--- OUTSIDE RECORDS SUMMARY | 2022-06-26 17:09 | XMS REPORT | Continuity of Care Document ---
:1975 Author Organization [facility] t Address [address] [place] [address] Care Team Providers Name Role Phone Asked, No Pcp Primary Care Physician Unavailable Doctor Unassigned, [place] Attending Clinician Unavailable MD JOCELINE CASTELLANOS Attending Clinician Unavailable JOCELINE CASTELLANOS Attending Clinician Unavailable KENROY_Benjy Attending Clinician Unavailable Quin Mcdonald Attending Clinician MD MARY BERGERON Admitting Clinician Unavailable MARY BERGERON Admitting Clinician Unavailable KENROY_Benjy Admitting Clinician Unavailable Payers Payer Name Policy Type Policy Number Effective Date Expiration Date S ource Problems Condition Condition Condition Status Onset Resolution Last Treating Co mments Source Name Details Category Date Date Treatment Clinician Date Congestive Congestive Disease Active 0 M ethodi heart heart 4-20 st failure failure 00:00: Hospita 00 l Chest pain Chest pain Disease Active 0 M ethodi 7-13 st 00:00: Hospita 00 l Allergies, Adverse Reactions, Alerts Allergy Allergy Status Severity Reaction(s) Onset Inactive Treating Comm ents Source Name Type Date Date Clinician Lorazepa Propensi Active Other (See 2019-0 Me thodi m ty to Comments) 3-10 st adverse 00:00: Hospita reaction 00 l s to drug LORAZEPA DRUG Active Other-Cmnt Univ ers M INGREDI 3-10 ity of 00:00: [place] [facility] Lorazepa Propensi Active Other - See U nivers m ty to comments 3-10 ity of adverse 00:00: [place] reaction 00 Medical s Branch NO KNOWN Drug Active Univers ALLERGIE Class ity of S [facility] Social History Social Habit Start Date Stop Date Quantity Comments Source History of Smokes tobacco Druze tobacco use daily Hospital Tobacco use and 2021-02-06 2021-02-06 Smokeless tobacco Me thodist exposure 00:00:00 00:00:00 non-user Hospital Alcohol intake 2021-02-06 2021-02-06 Current drinker Metho dist 00:00:00 00:00:00 of alcohol Hospital (finding) Sex Ass[birth year] Druze 00:00:00 00:00:00 Hospital Smoking Status Start Date Stop Date Source [facility] Smokes tobacco daily 2021-02-06 00:00:00 [facility] Medications Ordered Filled Start Stop Current Ordering [...] (six) hours as needed for anxiety. metFORMIN 2020-0 Yes 1000mg Q.5D Take 1,000 Methodi (GLUCOPHAGE 4-[address] ) 1,000 mg 11:36: mouth 2 [facility] tablet 41 (two) l times a day. nicotine 2020-0 Yes 1{patch Q24H Place 1 Met hodi (NICODERM 4-20 } patch on st CQ) 21 11:36: the skin Hospita mg/24 hr 41 daily. l BUMETanide 0 Yes 1mg Q.5D Take 1 mg Me thodi (BUMEX) 1 4-[address] MG tablet 11:36: (two) Hospita 41 times a l day. LORAZepam 0 Yes .5mg Q6H Take 0.5 Meth mildred (ATIVAN) 4-[address] 0.5 MG 11:36: mouth Hospita tablet 41 every 6 l (six) hours as needed for anxiety. metFORMIN 0 Yes 1000mg Q.5D Take 1,000 Methodi (GLUCOPHAGE 4-[address] ) 1,000 mg 11:36: mouth 2 [facility] tablet 41 (two) l times a day. nicotine 0 Yes 1{patch Q24H Place 1 Met hodi (NICODERM 4-20 } patch on st CQ) 21 11:36: the skin Hospita mg/24 hr 41 daily. l BUMETanide 0 Yes 1mg Q.5D Take 1 mg Me thodi (BUMEX) 1 4-[address] MG tablet 11:36: (two) Hospita 41 times a l day. Entresto 2020- Yes 1{tbl} Q.5D Take 1 Metho di 49-51 mg 3-[address] tablet per 00:00: mouth 2 [facility] tablet 00 (two) l times a day. Entresto 2020-0 Yes 1{tbl} Q.5D Take 1 Metho di 49-51 mg 3-[address] tablet per 00:00: mouth 2 [facility] tablet 00 (two) l times a day. Entresto 2020-0 Yes 1{tbl} Q.5D Take 1 Metho di 49-51 mg 3-[address] tablet per 00:00: mouth 2 [facility] tablet 00 (two) l times a day. Vital Signs Vital Name Observation Time Observation Value Comments Source Respiratory rate 2019-12-28 23:09:00 20 /[facility] weight 2019-12-28 23:09:00 117.935 kg [facility] [place] [facility] Oxygen saturation in 2019-12-28 23:09:00 100 /min University of Arterial blood by [facility] Pulse oximetry Branch Systolic blood 2019-12-28 23:09:00 200 mm[Hg] Univer sity of pressure [facility] Diastolic blood 2019-12-28 23:09:00 117 mm[Hg] Unive rsity of pressure [facility] Heart rate 2019-12-28 23:09:00 109 /min Universi [facility] Body temperature 2019-12-28 23:09:00 36.78 [facility] Respiratory rate 2019-12-28 23:09:00 20 /min [facility] Body weight 2019-12-28 23:09:00 117.935 kg [facility] [place] [facility] Oxygen saturation in 2019-12-28 23:09:00 100 /min University of Arterial blood by [facility] Pulse oximetry Branch Systolic blood 2019-12-28 23:09:00 200 mm[Hg] Univer sity of pressure [facility] Diastolic blood 2019-12-28 23:09:00 117 mm[Hg] Unive rsity of [facility] Heart rate 2019-12-28 23:09:00 109 /min [facility] [place] [facility] Body temperature 2019-12-28 23:09:00 36.78 Poly [facility] Procedures Procedure Date / Time Performed Performing Clinician Sourc e EXTERNAL PROVIDER - 2021-12-27 06:01:00 Doctor Unassigned, No Un iversity [facility] ADC REFERRAL Name Medical Branch REFERRAL- 2021-11-23 06:01:00 Doctor Unassigned, No Univer sity [facility] REQUEST/RESPONSE Name Medical Branch Plan of Care Planned Activity Planned Date Details Comments Source Future Scheduled 2022-06-20 HEPATITIS B VACCINES Met [facility] Test 18:59:18 (1 of 3 - 3-dose series) [code = HEPATITIS B VACCINES (1 of 3 - 3-dose series)] Future Scheduled 2022-06-20 COVID-19 VACCINE (#1) [facility] Test 18:59:18 [code = COVID-19 VACCINE (#1)] Future Scheduled 2022-06-20 Pneumococcal Vaccine: [facility] Test 18:59:18 Pediatrics (0 to 5 Years) and At-Risk Patients (6 to 64 Years) (1 - PCV) [code = Pneumococcal Vaccine: Pediatrics (0 to 5 Years) and At-Risk Patients (6 to 64 Years) (1 - PCV)] Future Scheduled 2022-06-20 COLONOSCOPY SCREENING [facility] Test 18:59:18 [code = COLONOSCOPY SCREENING] Future Scheduled 2022-06-20 INFLUENZA VACCINE [facility] Test 18:59:18 [code = INFLUENZA VACCINE] Future Scheduled 2022-06-20 HEPATITIS B VACCINES Met [facility] Test 18:59:18 (1 of 3 - 3-dose series) [code = HEPATITIS B VACCINES (1 of 3 - 3-dose series)] Future Scheduled 2022-06-20 COVID-19 VACCINE (#1) [facility] Test 18:59:18 [code = COVID-19 VACCINE (#1)] Future Scheduled 2022-06-20 Pneumococcal Vaccine: [facility] Test 18:59:18 Pediatrics (0 to 5 Years) and At-Risk Patients (6 to 64 Years) (1 - PCV) [code = Pneumococcal Vaccine: Pediatrics (0 to 5 Years) and At-Risk Patients (6 to 64 Years) (1 - PCV)] Future Scheduled 2022-06-20 COLONOSCOPY SCREENING [facility] Test 18:59:18 [code = COLONOSCOPY SCREENING] Future Scheduled 2022-06-20 INFLUENZA VACCINE [facility] Test 18:59:18 [code = INFLUENZA VACCINE] Future Scheduled 2022-06-20 HEPATITIS B VACCINES Met [facility] Test 18:59:18 (1 of 3 - 3-dose series) [code = HEPATITIS B VACCINES (1 of 3 - 3-dose series)] Future Scheduled 2022-06-20 COVID-19 VACCINE (#1) [facility] Test 18:59:18 [code = COVID-19 VACCINE (#1)] Future Scheduled 2022-06-20 Pneumococcal Vaccine: [facility] Test 18:59:18 Pediatrics (0 to 5 Years) and At-Risk Patients (6 to 64 Years) (1 - PCV) [code = Pneumococcal Vaccine: Pediatrics (0 to 5 Years) and At-Risk Patients (6 to 64 Years) (1 - PCV)] Future Scheduled 2022-06-20 COLONOSCOPY SCREENING [facility] Test 18:59:18 [code = COLONOSCOPY SCREENING] Future Scheduled 2022-06-20 INFLUENZA VACCINE [facility] Test 18:59:18 [code = INFLUENZA VACCINE] Encounters Start End Encounter Admission Attending Care Care Encounter Source Date/Time Date/Time Type Type Clinicians Facility Department ID 2021-12-27 2021-12-27 Orders Doctor MARI [id number] Univers 00:00:00 00:00:00 Only Unassigned, CRISTIAN [id number] ity of [place] [facility] [id number] Dannie as [phone] [facility] 009 Branch 2021-11-23 2021-11-23 Orders Doctor MARI [id number] Univers 00:00:00 00:00:00 Only Unassigned, CRISTIAN [id number] ity of [place] [facility] [id number] Dannie as [phone] [facility] 009 Branch 2021-02-06 2021-02-06 Outpatient [facility] [id number] [place] 00:00:00 00:00:00 JOCELINE [address] 2020-12-22 2020-12-22 Outpatient WATERS_S [facility] [id number] [place] 10:38:00 10:38:00 305 Commun i ty [facility] Clinics 2019-12-28 2019-12-28 Emergency [facility] [id number] Univers 18:15:10 20:22:00 Quin Lua [id number] [id number] [phone] [facility] 084 Branch 2019-12-28 2019-12-28 Emergency [facility] [id number] 18:15:10 20:22:00 Quin Lua [id number] [place] [id number] [place] [id number] 084 2019-12-28 2019-12-28 Emergency X [facility] ERT [id number] Univers 17:31:00 17:31:00 [facility] Results Test Description Test Time Test Comments Results Result Comments Source SARS-CoV-2 (COVID-19) RNA [Presence] in Respiratory sp ecimen by 2021-02-06 13:29:01 GUERA with probe detection Test Item Value Reference Range Interpretation Comme nts SARS-CoV-2 (COVID-19) RNA [Presence] in Respiratory Not detected No t-Detected specimen by GUERA with probe detection (test code = 46199-1) Whether patient is employed in a healthcare setting (test code = 38783-5) Whether the patient has symptoms related to condition of interest (test code = 31193-3) Patient was hospitalized because of this condition (test code = 38744-0) Whether the patient was admitted to intensive care unit (ICU) for condition of interest (test code = 83917-5) Whether patient resides in a congregate care setting (test code = 42823-1)
[2022-06-26 17:51] LABS: Absolute Lymphocytes (CBC) 1.9 K/uL (0.7-4.9); Hematocrit 38.1 % (39.6-49.0); Lymphocytes % 17.4 % (15.3-44.8); MCV 84.7 fL (80-100); MPV 8.3 fL (7.6-11.3)
[2022-06-26] MEDS ORDERED: MIDAZOLAM HCL 2 MG/2 ML INJ ONE (17:54)
[2022-06-26] MEDS ORDERED: NITROGLYCERIN/D5W 50 MG/250 ML BTL IV ONE (17:54)
--- NOTE | 2022-06-26 17:58 | ER ---
Nurse's Notes [facility] Name: Seth Smith Age: 47 yrs Sex: Male : 1975 Arrival Date: 06/26/2022 Time: 17:06 Bed 19 Private MD: Edmundo Winslow Atiq Diagnosis: Shortness of breath;Congestive Heart Failure;Hypertensive urgency;Tachycardia, unspecified Presentation: 06/26 17:13 Chief complaint: Patient states: Pt reports he was seen in this ER yesterday for SOB kb3 and CP but left AMA and returns today with CP, SOB. Pt reports he is homeless and cannot afford any of his prescribed medications. Coronavirus screen: Vaccine status: Patient reports being unvaccinated. Client denies travel out of the [place] in the last 14 days. Ebola Screen: Patient negative for fever greater than or equal to 101.5 degrees Fahrenheit, and additional compatible Ebola Virus Disease symptoms Patient denies exposure to infectious person. Patient denies travel to an Ebola-affected area in the 21 days before illness onset. Initial Sepsis Screen: Does the patient meet any 2 criteria? No. Patient's initial sepsis screen is negative. Does the patient have a suspected source of infection? No. Patient's initial sepsis screen is negative. Risk Assessment: Do you want to hurt yourself or someone else? Patient reports no desire to harm self or others. Onset of symptoms was June 24, 2022. 17:13 Method Of Arrival: Ambulatory kb3 17:13 Acuity: MARKUS 2 kb3 Triage Assessment: 17:15 General: Appears distressed, uncomfortable, Behavior is calm, cooperative. Pain: kb3 Complains of pain in chest Pain does not radiate. Pain currently is 5 out of 10 on a pain scale. Quality of pain is described as pressure. Respiratory: Reports shortness of breath cough that is dry, air hunger Onset: The symptoms/episode began/occurred 2 days. 06/27 00:41 Respiratory: the patient has moderate shortness of breath. kd3 Historical: - Allergies: 06/26 17:15 Ativan (anxious); kb3 17:15 Dilantin; kb3 - Home Meds: 17:15 None [Active]; kb3 - PMHx: 17:15 CHF; COPD; Hypertensive disorder; Rheumatoid Arthritis; Seizures; Gout; Diabetes - kb3 NIDDM; - Immunization history:: Adult Immunizations up to date, Client reports having NOT received the Covid vaccine. Last tetanus immunization: up to date. - Social history:: Smoking status: Patient reports the use of cigarette tobacco products, smokes one pack cigarettes per day. PT reports he quit smoking 3 days ago. Screenin:55 Abuse screen: Denies threats or abuse. Denies injuries from another. Nutritional 6 screening: No deficits noted. Tuberculosis screening: No symptoms or risk factors identified. 17:55 Fall Risk IV access (20 points). 6 Assessment: 18:00 General: pt states that he has not been able to take his meds for multiple months and jh6 that he has not used meth in 3 days because he has not been able to breath,. States that he normally smokes meth 3 times a day and has increased anxiety when not using meth. . 18:07 General: Appears uncomfortable, Behavior is agitated, anxious. Pain: Denies pain. jh6 Cardiovascular: Reports diaphoresis, shortness of breath, Capillary refill < 3 seconds JVD is absent bilat lower ext swelling and discoloration, pt states has been present x 2-3 mo after he stopped taking meds. . Pulses are all present. Edema is 2+ to left midcalf, left ankle, right midcalf and right ankle. Respiratory: Airway is patent Trachea midline Respiratory effort is labored, Respiratory pattern is tachypnea Breath sounds are clear bilaterally. in right upper lobe, left upper lobe, left posterior upper lobe and right posterior upper lobe Breath sounds with crackles bilaterally. in left lower lobe, right lower lobe, left posterior lower lobe and right posterior lower lobe. 18:15 Cardiovascular: Rhythm is sinus tachycardia. 6 18:15 General: MD Martins wanting to hold NTG drip until he speaks with dual rate supervisor. . 6 19:14 General: Appears uncomfortable, Behavior is anxious. Neuro: Level of Consciousness is ha1 awake, alert, obeys commands, Oriented to person, place, time, situation. Respiratory: Airway is patent Trachea midline Respiratory effort is even, labored. Vital Signs: 17:13 BP 232 / 133; Pulse 114; Resp 20; Temp 98.2; Pulse Ox 98% ; Weight 104.33 kg; Height 5 kb3 ft. 11 in. (180.34 cm); Pain 5/10; 18:00 BP 206 / 130; Pulse 107; Resp 28; Pulse Ox 98% on 3 lpm NC; Pain 0/10; jh6 19:16 BP 209 / 132; Pulse 110; Resp 28 S; Pulse Ox 98% on R/A; ha1 19:37 BP 201 / 122; kd3 20:00 BP 205 / 136; Pulse 98; Resp 23; Pulse Ox 99% on R/A; kd3 21:24 BP 223 / 109; Pulse 104; Resp 24; Pulse Ox 83% on R/A; kd3 21:52 BP 188 / 113; Pulse 100; Resp 26; Pulse Ox 98% on R/A; kd3 06/27 00:38 BP 194 / 104; Pulse 93; Resp 24; Pulse Ox 93% on R/A; kd3 01:11 BP 197 / 99; Pulse 105; Resp 20; Pulse Ox 97% on R/A; kd3 02:07 BP 179 / 103; Pulse 86; Pulse Ox 97% on R/A; ha1 03:47 BP 178 / 110; Pulse 100; Resp 19; Pulse Ox 96% on R/A; kd3 06/26 17:13 Body Mass Index 32.08 (104.33 kg, 180.34 cm) kb3 ED Course: 06/26 17:06 Patient arrived in ED. am2 17:06 Edmundo Winslow MD is Private Physician. am2 17:15 Triage completed. kb3 17:15 Arm band placed on right wrist. kb3 17:17 Jose Martins DO is Attending Physician. ms3 17:55 Placed in gown. Bed in low position. Call light in reach. Side rails up X 1. jh6 17:55 Inserted saline lock: 20 gauge in left forearm, using aseptic technique. Blood jh6 collected. 17:56 Jose Martins DO is Hospitalizing Provider. ms3 17:58 Jovanny Morin is Hospitalizing Provider. ms3 18:01 Carri Lopez, CAROLA is Primary Nurse. jh6 18:25 XRAY Chest (1 view) Sent. jh6 18:38 XRAY Chest (1 view) In Process Unspecified. EDMS 19:00 Inserted saline lock: 22 gauge in left forearm, using aseptic technique. jh6 06/27 03:45 No provider procedures requiring assistance completed. Patient admitted, IV remains in kd3 place. 07:55 SARS-COV-2 Antigen Rapid Sent. jg9 Administered Medications: 06/26 17:55 Drug: Midazolam 2 mg Route: IVP; Site: left forearm; [facility] 18:16 Follow up: Response: Anxiety decreased [facility] 18:34 Drug: Nitroglycerin 100 mcg/min Route: IV; Rate: calculated rate; Site: left forearm; [facility] 18:59 Follow up: Rate change 15 mcg/min [facility] 06/27 03:46 Follow up: IV Status: Infusion continued [facility] 07:19 Follow up: Rate change 55 mcg/min; IV Status: Infusion continued j9 07:55 Follow up: Rate change 60 mcg/min jg9 10:03 Follow up: Rate change 65 mcg/min jg9 12:00 Follow up: Rate change 60 mcg/min jg9 12:05 Follow up: Rate change 55 mcg/min jg9 12:10 Follow up: Rate change 50 mcg/min jg9 12:15 Follow up: Rate change 45 mcg/min jg9 13:11 Follow up: Rate change 40 mcg/min jg9 06/26 19:00 Drug: Lasix (furosemide) 60 mg Route: IVP; Site: left forearm; [facility] 06/27 03:46 Follow up: Response: No adverse reaction [facility] 06/26 19:36 Drug: Valium (diazepam) 5 mg Route: IVP; Site: left forearm; [facility] 06/27 00:45 Follow up: Response: No adverse reaction [facility] Medication: 06/26 18:15 VIS not applicable for this client. [facility] Outcome: 17:58 Decision to Hospitalize by Provider. vt3 06/27 03:45 Admitted to ER Hold. Please see [facility] for further documentation. 3 Condition: stable Discharge instructions given to patient, Instructed on the need for admit, Demonstrated understanding of instructions, follow-up care. 16:54 Patient left the ED. jg9 Signatures: Dispatcher [employer] EDMS Symone Quick Marcus, DO DO ms3 Iris Briseno, RN RN kd3 Carri Lopez RN RN jh6 Carri Burger RN RN jg9 Lay Barger RN RN ha1 Kristina Sauer, RN RN kb3
--- NOTE | 2022-06-26 17:58 | EDPHYS ---
Physician Documentation [facility] Name: Seth Smith Age: 47 yrs Sex: Male : 1975 Arrival Date: 06/26/2022 Time: 17:06 Bed 19 Private MD: Edmundo Winslow Atiq ED Physician Jose Martins HPI: 06/26 18:01 This 47 yrs old Male presents to ER via Ambulatory with complaints of Shortness Of ms3 Breath, Chest Pain. 18:01 47-year-old male with past medical history of congestive heart failure, COPD, ms3 hypertension, rheumatoid arthritis, seizures presents for shortness of breath that began after leaving the hospital AGAINST MEDICAL ADVICE yesterday. Patient states he is having severe shortness of breath. Patient denies alleviating or inciting factors. Patient denies fevers, chills, nausea, vomiting, diarrhea. Historical: - Allergies: 17:15 Ativan (anxious); kb3 17:15 Dilantin; kb3 - Home Meds: 17:15 None [Active]; kb3 - PMHx: 17:15 CHF; COPD; Hypertensive disorder; Rheumatoid Arthritis; Seizures; Gout; Diabetes - kb3 NIDDM; - Immunization history:: Adult Immunizations up to date, Client reports having NOT received the Covid vaccine. Last tetanus immunization: up to date. - Social history:: Smoking status: Patient reports the use of cigarette tobacco products, smokes one pack cigarettes per day. PT reports he quit smoking 3 days ago. ROS: 18:01 Constitutional: Negative for fever, and chills. Neck: Negative for injury, pain, and ms3 swelling, Cardiovascular: Negative for chest pain, and palpitations. 18:01 MS/Extremity: Negative for injury and deformity, Skin: Negative for injury, rash, and discoloration. 18:01 Respiratory: Positive for shortness of breath. 18:01 All other systems are negative. Exam: 17:26 ECG was reviewed by the Attending Physician. ms3 18:01 Constitutional: This is a well developed, well nourished patient who is awake, alert, ms3 and in no acute distress. 18:01 Head/Face: Normocephalic, atraumatic. Neck: Trachea midline, no cervical lymphadenopathy. Supple, full range of motion without nuchal rigidity, or vertebral point tenderness. No Meningismus. Chest/axilla: Normal chest wall appearance and motion. Nontender with no deformity. Cardiovascular: Regular rate and rhythm with a normal S1 and S2. No gallops, murmurs, or rubs. Normal PMI, no JVD. No pulse deficits. Abdomen/GI: Soft, non-tender, with normal bowel sounds. No distension or tympany. No guarding or rebound. No evidence of tenderness throughout. Skin: Warm, dry with normal turgor. Normal color with no rashes, no lesions, and no evidence of cellulitis. MS/ Extremity: Pulses equal, no cyanosis. Neurovascular intact. Full, normal range of motion. Psych: Awake, alert, with orientation to person, place and time. Behavior, mood, and affect are within normal limits. 18:01 Respiratory: mild respiratory distress is noted, Respirations: normal, Breath sounds: rales, that are moderate, are located in both bases, Respiratory rate: 20 Vital Signs: 17:13 BP 232 / 133; Pulse 114; Resp 20; Temp 98.2; Pulse Ox 98% ; Weight 104.33 kg; Height 5 kb3 ft. 11 in. (180.34 cm); Pain 5/10; 18:00 BP 206 / 130; Pulse 107; Resp 28; Pulse Ox 98% on 3 lpm NC; Pain 0/10; jh6 19:16 BP 209 / 132; Pulse 110; Resp 28 S; Pulse Ox 98% on R/A; ha1 19:37 BP 201 / 122; kd3 20:00 BP 205 / 136; Pulse 98; Resp 23; Pulse Ox 99% on R/A; kd3 21:24 BP 223 / 109; Pulse 104; Resp 24; Pulse Ox 83% on R/A; kd3 21:52 BP 188 / 113; Pulse 100; Resp 26; Pulse Ox 98% on R/A; kd3 09/08 00:38 BP 194 / 104; Pulse 93; Resp 24; Pulse Ox 93% on R/A; kd3 01:11 BP 197 / 99; Pulse 105; Resp 20; Pulse Ox 97% on R/A; kd3 02:07 BP 179 / 103; Pulse 86; Pulse Ox 97% on R/A; ha1 03:47 BP 178 / 110; Pulse 100; Resp 19; Pulse Ox 96% on R/A; kd3 06/26 17:13 Body Mass Index 32.08 (104.33 kg, 180.34 cm) kb3 MDM: 06/26 17:31 Patient medically screened. ms3 18:30 Differential diagnosis: Anemia CHF exacerbation, Chronic Obstructive Pulmonary Disease ms3 Myocardial Infarction pneumonia, pulmonary edema. Data reviewed: vital signs, nurses notes, lab test result(s), radiologic studies, and as a result, I will admit patient. Counseling: I had a detailed discussion with the patient and/or guardian regarding: the historical points, exam findings, and any diagnostic results supporting the discharge/admit diagnosis, lab results, radiology results, the need for further work-up and treatment in the hospital. ED course: Discussed case with UMAIR Chong, and she accepts patient on behalf of of Dr. Morin. Patient has refused nitroglycerin drip at this point. Patient agrees to admission. All questions have been answered. 06/26 17:32 Order name: Basic Metabolic Panel; Complete Time: 18:27 ms3 06/26 17:32 Order name: CBC with Diff; Complete Time: 18:27 ms3 06/26 17:32 Order name: NT PRO-BNP; Complete Time: 18:27 ms3 06/26 17:32 Order name: Troponin HS; Complete Time: 18:27 ms3 06/27 03:05 Order name: CBC with Automated Diff; Complete Time: 04:30 EDMS 06/27 03:24 Order name: Hemoglobin A1c; Complete Time: 04:30 EDMS 06/27 03:33 Order name: Glucose, Ancillary Testing; Complete Time: 04:30 EDMS 06/27 03:37 Order name: Basic Metabolic Panel; Complete Time: 04:30 EDMS 06/27 03:37 Order name: Phosphorus; Complete Time: 04:30 EDMS 06/27 03:37 Order name: Lipid Profile; Complete Time: 04:30 EDMS 06/27 03:37 Order name: Magnesium; Complete Time: 04:30 EDMS 06/27 03:37 Order name: Thyroid Stimulating Hormone; Complete Time: 04:30 EDMS 06/27 03:48 Order name: LDL, Direct; Complete Time: 04:30 EDMS 06/27 07:11 Order name: SARS-COV-2 Antigen Rapid bd 06/26 17:32 Order name: XRAY Chest (1 view); Complete Time: 18:54 ms3 06/26 17:32 Order name: EKG; Complete Time: 17:33 ms3 06/26 17:32 Order name: Cardiac monitoring; Complete Time: 18:25 ms3 06/26 17:32 Order name: EKG - Nurse/Tech; Complete Time: 18:25 ms3 06/26 17:32 Order name: IV Saline Lock; Complete Time: 18:25 ms3 06/26 17:32 Order name: Labs collected and sent; Complete Time: 18:26 ms3 06/26 17:32 Order name: O2 Per Protocol; Complete Time: 18:26 ms3 06/26 17:32 Order name: O2 Sat Monitoring; Complete Time: 18:26 ms3 06/27 07:47 Order name: SARS-COV-2 Antigen Rapid EDMS 06/27 07:52 Order name: Glucose, Ancillary Testing EDMS 06/27 11:54 Order name: Glucose, Ancillary Testing EDMS EC:26 Rate is 102 beats/min. Rhythm is regular. QRS [place] is Normal. [place] interval is normal. ms3 Clinical impression: Sinus tachycardia. Interpreted by me. Reviewed by me. Administered Medications: 17:55 Drug: Midazolam 2 mg Route: IVP; Site: left forearm; [facility] 18:16 Follow up: Response: Anxiety decreased [facility] 18:34 Drug: Nitroglycerin 100 mcg/min Route: IV; Rate: calculated rate; Site: left forearm; [facility] 18:59 Follow up: Rate change 15 mcg/min [facility] 06/27 03:46 Follow up: IV Status: Infusion continued kd3 07:19 Follow up: Rate change 55 mcg/min; IV Status: Infusion continued jg9 07:55 Follow up: Rate change 60 mcg/min jg9 10:03 Follow up: Rate change 65 mcg/min jg9 12:00 Follow up: Rate change 60 mcg/min jg9 12:05 Follow up: Rate change 55 mcg/min jg9 12:10 Follow up: Rate change 50 mcg/min jg9 12:15 Follow up: Rate change 45 mcg/min jg9 13:11 Follow up: Rate change 40 mcg/min jg9 06/26 19:00 Drug: Lasix (furosemide) 60 mg Route: IVP; Site: left forearm; [facility] 06/27 03:46 Follow up: Response: No adverse reaction kd3 06/26 19:36 Drug: Valium (diazepam) 5 mg Route: IVP; Site: left forearm; kd3 06/27 00:45 Follow up: Response: No adverse reaction kd3 Disposition: 06/26 18:30 Critical Care:. ms3 Disposition Summary: 06/26/22 17:58 Hospitalization Ordered Hospitalization Status: Inpatient Admission ms3 Provider: Jovanny Morin ms3 Condition: Stable ms3 Problem: new ms3 Symptoms: are unchanged ms3 Bed/Room Type: Standard ms3 Location: Intensive Care Unit(06/27/22 15:54) dw Room Assignment: 2-(06/27/22 15:54) dw Diagnosis - Shortness of breath ms3 - Congestive Heart Failure ms3 - Hypertensive urgency ms3 - Tachycardia, unspecified ms3 Forms: - Medication Reconciliation Form ms3 - SBAR form ms3 Critical care time excluding procedures: 18:30 Critical care time: Bedside Care: 30 minutes, Consultation: 10 minutes. Total time: 40 ms3 minutes Signatures: Dispatcher [employer] Maggi Verduzco RN RN Lesvia Romero, RN RN Jose Dooley, DO ms3 Iris Briseno, RN RN kd3 Carri Lopez, RN RN jh6 [place] Medrano PA PA sb3 Kristina Sauer, RN RN kb3 Carri Burger RN jg9 Corrections: (The following items were deleted from the chart) 21:26 17:58 Telemetry/MedSurg (Inpatient) ms3 cg 21:26 17:58 ms3 cg 06/27 15:54 06/26 21:26 [facility] ER HOLD cg dw 06/27 15:54 06/26 21:26 ERHOLD- cg dw
[2022-06-26 18:08] LABS: Potassium 3.7 mmol/L (3.5-5.1); Troponin High Sensitivity 51.6 pg/mL (<58.9)
--- NOTE | 2022-06-26 18:42 | RAD REPORT ---
EXAM DESCRIPTION: RAD - Chest Single View - 06/26/2022 6:36 pm CLINICAL HISTORY: Chest pain Chest pain. COMPARISON: Chest Single View dated 06/25/2022; Chest Single View dated 05/17/2022; Chest Single View d ated 11/19/2020; Chest Single View dated 10/12/2020 FINDINGS: Portable technique limits examination quality. Moderate bilateral pulmonary opacities are present suggesting pulmonary edema. The heart is moderatel y enlarged. No displaced fractures. IMPRESSION: Moderate CHF versus volume overload.
[2022-06-26] MEDS ORDERED: FUROSEMIDE 100 MG/10 ML VIAL IV ONE (19:04)
[2022-06-26] MEDS ORDERED: NA CHLORIDE 0.9% 100 ML ONE (19:39)
[2022-06-26] MEDS ORDERED: LEVETIRACETAM 500 MG/5 ML VIAL IV ONE (19:39)
[2022-06-26] MEDS ORDERED: DIAZEPAM 10 MG/2 ML INJ SYRINGE ONE (19:41)
--- NOTE | 2022-06-26 19:57 | P.HP ---
Certification for Inpatient Patient admitted to: Inpatient With expected LOS: >2 Midnights Patient will require the following post-hospital care: None Practitioner: I am a practitioner with admitting privileges, knowledge of patient current condition, hospital course, and medical plan of care. Services: Services provided to patient in accordance with Admission requirements found in Title 42 Section 412.3 of the Code of Federal Regulations Patient History Date of Service: 06/26/22 Reason for admission: Malignant HTN, CHF History of Present Illness: Patient is a 47-year-old male with history of chronic diastolic heart failure (EF 55-60%) and pulmonary hypertension who presented to the emergency department with a complaint of chest pain and shortness of breath. Patient was hospitalized yesterday for CHF exacerbation and left AMA. Patient is homeless and does not fill/take the medications he is prescribed. His initial BP was 232/133. Labs significant for glucose 228, BUN 22, Cr 1.6 (baseline), BNP 2625. CXR shoed moderate CHF vs volume overload. Patient given a dose of IV Lasix and started on nitroglycerin drip. He has not been very cooperative with treatment- refusing BP checks, pulling off O2, etc. He does have a history of methamphetamine abuse and reports that he has not had any in 3 days. His blood pressure has slowly improved. He is hospitalized for further management. Allergies lorazepam [From Ativan] Allergy (Verified 11/20/20 02:18) Itching/Hives/Rash phenytoin [From Dilantin] Allergy (Verified 11/20/20 02:18) Itching/Hives/Rash Home medications list reviewed: Yes Home Medications: NPH, Human Insulin Isophane [Humulin N] 10 unit SQ BID #1 vial 11/20/20 Nicotine [Nicoderm Cq] 1 each TD DAILY #30 patch.td24 11/20/20 Albuterol Sulfate [Proair Hfa] 2 puff IH TID PRN #1 hfa.aer.ad 05/18/22 Aspirin [Aspirin EC 81 MG] 81 mg PO DAILY 90 Days #90 05/18/22 Atorvastatin Calcium [Lipitor] 40 mg PO BEDTIME #30 tab 05/18/22 Fluticasone Propion/Salmeterol [Airduo Digihaler 113-14 Mcg] 1 each IH BID #1 aer.pw.bas 05/18/22 Furosemide [Lasix] 40 mg PO BIDL #60 tab 05/18/22 carvediloL [Coreg] 25 mg PO BID 30 Days #60 tab 05/18/22 lisinopriL [Lisinopril] 20 mg PO DAILY 30 Days #30 05/18/22 - Past Medical/Surgical History Diabetic: Yes -: Hypertension -: Diabetes -: Gout -: CHF -: COPD -: Right Forearm Psychosocial/ Personal History: Patient reports recent homelessnes. - Family History Father -: Hypertension Mother -: Hypertension, Diabetes - Social History Smoking Status: Current every day smoker Alcohol use: No CD- Drugs: Yes Caffeine use: Yes Place of Residence: Homeless Review of Systems Respiratory: Shortness of Breath Cardiovascular: Chest Pain, Edema Physical Examination - Physical Exam General: Alert, In no apparent distress HEENT: Atraumatic, PERRLA, EOMI, Sclerae nonicteric Neck: Supple, 2+ carotid pulse no bruit, No LAD, Without JVD or thyroid abnormality Respiratory: Clear to auscultation bilaterally, Normal air movement Cardiovascular: Edema, Irregular heart rate/rhythm Gastrointestinal: Normal bowel sounds, No tenderness Musculoskeletal: No tenderness Integumentary: No rashes Neurological: Normal speech, Normal strength at 5/5 x4 extr, Normal tone - Studies Laboratory Data (last 24 hrs) 06/26/22 17:40: WBC 10.70, Hgb 13.1 L, Hct 38.1 L, Plt Count 224 06/26/22 17:40: Sodium 136, Potassium 3.7, BUN 22 H, Creatinine 1.60 H, Glucose 228 H Assessment and Plan - Problems (Diagnosis) (1) Accelerated hypertension Current Visit: Yes Status: Acute (2) Acute on chronic systolic heart failure Current Visit: Yes Status: Acute (3) Noncompliance with medication regimen Current Visit: Yes Status: Acute (4) COPD (chronic obstructive pulmonary disease) Current Visit: Yes Status: Chronic Qualifiers: (5) Type 2 diabetes mellitus Current Visit: Yes Status: Chronic Qualifiers: Diabetes mellitus assisted insulin use: with assisted use Diabetes mellitus complication status: with kidney complications Diabetes mellitus complication detail: with chronic kidney disease Chronic kidney disease stage 3 subtype: stage 3a (GFR 45-59) - Plan -Admit patient to ICU while on nitro drip -Continue nitro drip to reduce MAP by 25% -IV Lasix. Follow renal function -Oxygen therapy as needed. -Cardiology consult -Valium as needed -Monitor and replete electrolytes per protocol -Reconcile and continue home medications -Lovenox for VTE ppx -Full code Discharge Plan: Home Plan to discharge in: Greater than 2 days - Advance Directives Does patient have a Living Will: No Does patient have a Durable POA for Healthcare: No - Code Status/Comfort Care Code Status Assessed: Yes (Full) Critical Care: No Time Spent Managing Pts Care (In Minutes): 50
[2022-06-27] MEDS ORDERED: NITROGLYCERIN/D5W 50 MG/250 ML BTL IV SCH (02:19)
[2022-06-27] MEDS ORDERED: ALBUTEROL 2.5 MG/3 ML NEB SOL NEB PRN (02:19)
[2022-06-27] MEDS: INSULIN -REGULAR HUMAN 50 UNIT/0.5 ML ML SQ SCH ×5 (02:19→20:42)
[2022-06-27] MEDS ORDERED: ACETAMINOPHEN 500 MG TAB PO PRN (02:19)
[2022-06-27] MEDS ORDERED: ONDANSETRON 4 MG/2 ML VIAL IV PRN (02:19)
[2022-06-27] MEDS: ATORVASTATIN 40 MG TAB PO SCH ×2 (02:19→20:25)
[2022-06-27] MEDS: DIAZEPAM 10 MG/2 ML INJ SYRINGE IV PRN ×2 (02:23→07:53)
[2022-06-27 03:04] LABS: Absolute Lymphocytes (CBC) 1.8 K/uL (0.7-4.9); Hematocrit 36.6 % (39.6-49.0); Lymphocytes % 17.2 % (15.3-44.8); MCV 85.3 fL (80-100); MPV 8.5 fL (7.6-11.3); RBC Red Blood Cell Count 4.29 M/uL (4.33-5.43)
[2022-06-27 03:22] LABS: BUN Blood Urea Nitrogen 22 mg/dL (7-18); Bicarbonate 27 mmol/L (21-32); Glomerular Filtration Rate 54 ml/min (=/>90); Glucose Level 218 mg/dL (74-106); HDL Cholesterol 27 mg/dL (40-60); Phosphorus 2.8 mg/dL (2.5-4.9); Potassium 3.2 mmol/L (3.5-5.1); Sodium Level 136 mmol/L (136-145)
[2022-06-27] MEDS ORDERED: ONDANSETRON 4 MG/2 ML VIAL ONE (03:24)
[2022-06-27 03:48] LABS: LDL, Direct 137 mg/dL (100-129)
[2022-06-27 07:46] LABS: SARS-CoV-2 Antigen Rapid Res Negative (Negative)
[2022-06-27] MEDS ORDERED: DIAZEPAM 5 MG TABLET ONE (07:53)
[2022-06-27] MEDS ORDERED: INSULIN -REGULAR HUMAN 50 UNIT/0.5 ML ML ONE ×3 (07:53→17:01)
[2022-06-27] MEDS: ASPIRIN EC 81 MG TAB PO SCH (09:00)
[2022-06-27] MEDS: ENOXAPARIN 40 MG/0.4 ML SQ SCH (09:00)
[2022-06-27] MEDS: FUROSEMIDE 40 MG/4 ML VIAL IV SCH ×2 (09:00→17:40)
[2022-06-27] MEDS ORDERED: ENOXAPARIN 40 MG/0.4 ML SQ ONE (09:11)
[2022-06-27] MEDS ORDERED: ASPIRIN EC 81 MG TAB PO ONE (09:11)
[2022-06-27] MEDS ORDERED: FUROSEMIDE 40 MG/4 ML VIAL ONE (09:11)
--- NOTE | 2022-06-27 10:52 | EKG ---
Test Date: 2022-06-26 Test Time: 17:26:18 [place] [employer] Examiner: TARIK MEASUREMENT RESULTS: Intervals: Rate: 102 LA: 170 QRSD: 84 QT: 390 QTc: 508 [place]: P: 55 LA: 170 QRS: 10 T: 86 INTERPRETIVE STATEMENTS: Sinus tachycardia Possible Left atrial enlargement Borderline ECG Compared to ECG 06/25/2022 08:03:46 No significant changes Electronically Signed On 06-27-22 10:50:11 CDT by Kip Judd
[2022-06-27] MEDS: AMLODIPINE 10 MG TAB PO SCH (11:30)
[2022-06-27] MEDS: carvediloL 25 MG TAB PO SCH ×2 (11:30→17:40)
[2022-06-27] MEDS ORDERED: MIDAZOLAM HCL 2 MG/2 ML INJ IV SCH (12:00)
[2022-06-27] MEDS ORDERED: carvediloL 6.25 MG TAB ONE (12:03)
[2022-06-27] MEDS ORDERED: AMLODIPINE 10 MG TAB ONE (12:04)
[2022-06-27] MEDS ORDERED: MIDAZOLAM HCL 2 MG/2 ML INJ ONE (12:12)
--- NOTE | 2022-06-27 13:04 | CON ---
Date of Consultation: 06/27/[address] Morin on 06/26/2022. I saw the patient on 06/27/2022. Reason For Consultation: Hypertensive urgency. History Of Present Illness: Mr. Smith is a 47-year-old white male. He has a history of congestive heart failure, COPD, hypertension, rheumatoid arthritis, seizures, gout, diabetes. He came in with h ypertensive crisis. When I saw him, his blood pressure has improved. He denied any chest pain, naus ea, vomiting, diaphoresis, PND, orthopnea, pedal edema, palpitations, or syncope, but does have some shortness of breath. Denied any fevers or chills. He is not taking any medications at home. Allergies: TO ATIVAN AND DILANTIN. Review of Systems: Negative. Social History: Negative. Family History: Noncontributory. Physical Examination: Vital Signs: When I saw him, his pressure was 160/100, sinus rhythm, afebrile. HEENT: Negative. Neck: Supple with no bruit. Chest: Clear. Cardiac: Revealed a regular rhythm and rate with S4 gallops. No murmurs or rubs. Abdomen: Benign. Extremities: Revealed no clubbing, cyanosis, or edema. Diagnostic Data: Showed a creatinine of 1.58, potassium of 3.2, glucose was 218, triglyceride was 48 3. BNP was 2565. His LDL was 137, HDL was 27. Impression And Plan: 1.Hypertension. 2.Dyslipidemia. 3.Renal insufficiency. 4.Chronic obstructive pulmonary disease. 5.History of congestive heart failure. 6.History of rheumatoid arthritis. 7.Diabetes. 8.Gout. 9.Seizure. Patient's main problem is noncompliance. He said he does not take any of his medication because he c annot afford it. His last echocardiogram showed an ejection fraction of 60% with severe pulmonary hy pertension, normal wall motion. I think we need to continue his present regimen right now and he chao uld definitely be on Lasix, calcium channel sravanthi, aspirin, statins, diabetes medicine and we will continue to follow him while he is here. TERRANCE/JACQUELINE Voice ID: [id number] Report ID: [id number]
--- NOTE | 2022-06-27 15:42 | P.PN ---
Subjective Date of Service: 06/27/22 Chief Complaint: Malignant HTN, CHF Patient states his shortness of breath is much better today. He is complaining of anxiety. Blood pressure remains elevated on the nitroglycerin drip. Patient stated he used methamphetamine about 5 days ago. Physical Examination - Vital Signs Blood Pressure: 175/93 Pulse: 98 Respirations: 19 Pulse Ox (%): 93 - Studies Laboratory Data (last 24 hrs) 06/26/22 17:40: WBC 10.70, Hgb 13.1 L, Hct 38.1 L, Plt Count 224 06/26/22 17:40: Sodium 136, Potassium 3.7, BUN 22 H, Creatinine 1.60 H, Glucose 228 H Assessment And Plan - Current Problems (Diagnosis) (1) Malignant hypertension Current Visit: Yes Status: Acute (2) Acute on chronic diastolic heart failure Current Visit: No Status: Acute (3) Methamphetamine abuse Current Visit: Yes Status: Acute (4) Type 2 diabetes mellitus Current Visit: Yes Status: Chronic Qualifiers: Diabetes mellitus roasterman insulin use: with roasterman use Diabetes mellitus complication status: with kidney complications Diabetes mellitus complication detail: with chronic kidney disease Chronic kidney disease stage 3 subtype: stage 3a (GFR 45-59) (5) Pulmonary hypertension Current Visit: No Status: Acute - Plan Physical Exam General: Alert, In no apparent distress Neck: Supple, Without JVD. Respiratory: Mild bibasilar crackles. Normal air movement Cardiovascular: Edema, Irregular heart rate/rhythm Gastrointestinal: Normal bowel sounds, No tenderness Integumentary: No rashes Neurological: Normal speech, Normal strength at 5/5 x4 extr, anxious. Plan: Continue IV Lasix 40 mg twice daily. Aggressive blood pressure control. Started amlodipine 10 mg daily, Coreg 25 mg twice daily. Wean off NTG drip as possible. Midazolam IV for metamphetamine withdrawal.
[2022-06-27] MEDS: MIDAZOLAM HCL 2 MG/2 ML INJ IV SCH ×3 (15:48→23:30)
[2022-06-27 19:55] LABS: Urine Bilirubin Negative (Negative); Urine Blood Trace-lysed (Negative); Urine Clarity Clear (Clear); Urine Color Yellow (Yellow); Urine Glucose Negative (Negative); Urine Protein 3+ (Negative); Urine Urobilinogen 0.2 mg/dL (0.2-1.0)
[2022-06-27 20:02] LABS: Urine Bacteria <20 /HPF (<20); Urine RBC <5 /HPF (None Seen)
[2022-06-27] MEDS ORDERED: DIPHENHYDRAMINE 50 MG/ML VIAL IV ONE (22:20)
[2022-06-27] MEDS ORDERED: MIDAZOLAM HCL 2 MG/2 ML INJ IV ONE (23:41)
[2022-06-28] MEDS ORDERED: HALOPERIDOL LACT 5 MG/ML INJ IV PRN ×2 (00:50→16:37)
[2022-06-28] MEDS ORDERED: DIAZEPAM 10 MG/2 ML INJ SYRINGE IV ONE (01:19)
[2022-06-28] MEDS ORDERED: DEXMEDETOMIDINE HCL 200 MCG/2 ML VIAL ONE ×2 (01:49→04:15)
[2022-06-28] MEDS ORDERED: NA CHLORIDE 0.9% 100 ML ONE ×2 (01:58→04:17)
[2022-06-28] MEDS ORDERED: DEXMEDETOMIDINE HCL 200 MCG in NA CHLORIDE 0.9% 98 ML IV SCH (02:00)
[2022-06-28] MEDS ORDERED: LORazepam 2 MG/ML VIAL IV ONE ×2 (03:07→05:04)
[2022-06-28] MEDS: MIDAZOLAM HCL 2 MG/2 ML INJ IV SCH (03:45)
[2022-06-28] MEDS: carvediloL 25 MG TAB PO SCH ×2 (05:19→17:03)
[2022-06-28 05:26] LABS: Absolute Lymphocytes (CBC) 2.2 K/uL (0.7-4.9); Hematocrit 33.5 % (39.6-49.0); Lymphocytes % 25.4 % (15.3-44.8); MCV 87.1 fL (80-100); MPV 8.8 fL (7.6-11.3); RBC Red Blood Cell Count 3.84 M/uL (4.33-5.43)
[2022-06-28 05:41] LABS: Potassium 3.9 mmol/L (3.5-5.1)
[2022-06-28] MEDS ORDERED: KCL 20 MEQ/100 mL IVPB 20 MEQ/100 ML BAG IV SCH (06:00)
[2022-06-28] MEDS ORDERED: DIAZEPAM 10 MG/2 ML INJ SYRINGE IV SCH ×2 (07:00→09:00)
[2022-06-28] MEDS: DEXMEDETOMIDINE HCL 1,000 MCG in NA CHLORIDE 0.9% 490 ML IV SCH ×2 (07:36→13:44)
[2022-06-28] MEDS: ENOXAPARIN 40 MG/0.4 ML SQ SCH (08:23)
[2022-06-28] MEDS: NICOTINE 21 MG/PAT TD SCH (08:23)
[2022-06-28] MEDS: FUROSEMIDE 40 MG/4 ML VIAL IV SCH ×2 (08:23→17:00)
[2022-06-28] MEDS: INSULIN -REGULAR HUMAN 50 UNIT/0.5 ML ML SQ SCH ×4 (08:24→21:00)
[2022-06-28] MEDS: ASPIRIN EC 81 MG TAB PO SCH (09:00)
[2022-06-28] MEDS: AMLODIPINE 10 MG TAB PO SCH (09:00)
[2022-06-28 09:26] LABS: Arterial Blood Carboxyhemoglob 1.6 % (0-1.5); Blood Gas Oxyhemoglobin 92.9 % (94-97); Blood O2 Saturation 95.6 % (92-98.5)
[2022-06-28] MEDS ORDERED: DIAZEPAM 10 MG/2 ML INJ SYRINGE IV PRN (10:07)
--- NOTE | 2022-06-28 10:55 | P.PN ---
Subjective Date of Service: 06/28/22 Chief Complaint: Malignant HTN, CHF Per report, patient was extremely agitated last night. He was on maximum dose Precedex and was also getting benzodiazepines. He is likely withdrawing from methamphetamine Is currently somnolent on the Precedex. Blood pressure has improved. Physical Examination - Vital Signs Temperature: 96.4 F Blood Pressure: 112/76 Pulse: 77 Respirations: 16 Pulse Ox (%): 97 Assessment And Plan - Current Problems (Diagnosis) (1) Malignant hypertension Current Visit: Yes Status: Acute (2) Acute on chronic diastolic heart failure Current Visit: No Status: Acute (3) Methamphetamine abuse Current Visit: Yes Status: Acute (4) Type 2 diabetes mellitus Current Visit: Yes Status: Chronic Qualifiers: Diabetes mellitus residential insulin use: with moth exterminator use Diabetes mellitus complication status: with kidney complications Diabetes mellitus complication detail: with chronic kidney disease Chronic kidney disease stage 3 subtype: stage 3a (GFR 45-59) Qualified Code(s): E11.22 - Type 2 diabetes mellitus with diabetic chronic kidney disease; N18.31 - Chronic kidney disease, stage 3a; Z79.4 - care home (current) use of insulin (5) Pulmonary hypertension Current Visit: No Status: Acute - Plan Physical Exam General: Sedated, on Precedex drip Neck: Supple, Without JVD. Respiratory: Mild bibasilar crackles. Normal air movement Cardiovascular: Edema, Irregular heart rate/rhythm Gastrointestinal: Normal bowel sounds, No tenderness Integumentary: No rashes Neurological: Normal speech, Normal strength at 5/5 x4 extr, anxious. Plan: Continue IV Lasix 40 mg twice daily. Noted an episode of hypotension this morning. Continue Coreg 25 mg twice daily. Amlodipine discontinued. Uncontrolled blood pressure likely related to methamphetamine withdrawal Off NTG drip. Continue Precedex drip. IV diazepam as needed as adjunct Monitor respiratory status.
[2022-06-28] MEDS: ALBUTEROL 2.5 MG/3 ML NEB SOL NEB SCH ×2 (14:00→19:50)
[2022-06-28] MEDS ORDERED: NA CHLORIDE 0.9% 0 ML ONE (14:47)
[2022-06-28] MEDS ORDERED: RSI MEDICATION KIT IV ONE (14:47)
[2022-06-28] MEDS ORDERED: propofoL 1,000 MG/100 ML VIAL IV ONE ×2 (14:52→16:54)
[2022-06-28] MEDS ORDERED: ROCURONIUM 50 MG/5 ML VIAL IV ONE (14:52)
[2022-06-28] MEDS ORDERED: NA CHLORIDE 0.9% 1,000 ML ONE (14:53)
[2022-06-28] MEDS ORDERED: NA CHLORIDE 0.9% 500 ML IV ONE ×2 (16:00→22:03)
--- NOTE | 2022-06-28 16:16 | RAD REPORT ---
EXAM DESCRIPTION: Jessie Single View06/28/2022 3:52 pm CLINICAL HISTORY: Device placement/endotracheal tube placement COMPARISON: June 26, 2022 FINDINGS: Endotracheal tube has been inserted. The tip lies 2 centimeters above the aortic arch and should be advanced about 2 centimeters. Orogastric tube within the distal stomach Prominence of the mediastinum likely represents a combination of lymphadenopathy and mediastinal fat The lungs appear clear of acute infiltrate. The heart is enlarged
[2022-06-28] MEDS: propofoL 1,000 MG/100 ML VIAL IV SCH ×2 (17:00→20:12)
[2022-06-28] MEDS: FENTANYL CITR 100 MCG/2 ML IV PRN (17:15)
--- NOTE | 2022-06-28 19:56 | RAD REPORT ---
EXAM DESCRIPTION: RAD - Chest Single View - 06/28/2022 7:32 pm CLINICAL HISTORY: Device placement PICC line placement IMPRESSION: PICC line with its tip in the superior vena cava Endotracheal tube with its tip 7 centimeters above the darci. This should be advanced 2 centimeters
[2022-06-28] MEDS: ATORVASTATIN 40 MG TAB PO SCH (21:00)
--- NOTE | 2022-06-28 22:05 | RAD REPORT ---
EXAM DESCRIPTION: Jessie Single View06/28/2022 9:18 pm CLINICAL HISTORY: Device placement endotracheal tube placement IMPRESSION: An endotracheal tube has its tip approximately 1.5 centimeters above the top of the aort ic arch
[2022-06-28] MEDS ORDERED: NOREPINEPHRINE 4 MG in D5W 250 ML IV SCH (23:45)
[2022-06-29] MEDS: propofoL 1,000 MG/100 ML VIAL IV SCH (00:22)
[2022-06-29] MEDS: ALBUTEROL 2.5 MG/3 ML NEB SOL NEB SCH ×4 (01:40→20:30)
[2022-06-29] MEDS ORDERED: ALBUMIN HUMAN 25% 200 ML IV ONE ×2 (01:58→04:13)
[2022-06-29] MEDS: FENTANYL CITR 100 MCG/2 ML IV PRN ×2 (03:35→07:44)
[2022-06-29] MEDS ORDERED: NOREPINEPHRINE BITARTRATE/D5W 4 MG/250 ML BAG IV ONE ×2 (04:07→06:02)
[2022-06-29] MEDS ORDERED: NA CHLORIDE 0.9% 2,000 ML IV ONE (04:13)
[2022-06-29] MEDS: DEXTROSE 10%-WATER 500 ML IV SCH ×2 (04:30→13:44)
[2022-06-29] MEDS ORDERED: D5W 1,000 ML IV ONE (04:38)
[2022-06-29] MEDS ORDERED: SODIUM BICARB 50 MEQ/50ML VIAL ONE (04:39)
[2022-06-29 04:40] LABS: Absolute Lymphocytes (CBC) 2.8 K/uL (0.7-4.9); Hematocrit 42.7 % (39.6-49.0); Lymphocytes % 9.8 % (15.3-44.8); MCV 88.1 fL (80-100); MPV 8.7 fL (7.6-11.3); RBC Red Blood Cell Count 4.85 M/uL (4.33-5.43)
[2022-06-29 04:46] LABS: Protime INR 2.1
[2022-06-29] MEDS ORDERED: D5W 1,000 ML with NA BICARB 8.4% 150 MEQ IV SCH ×6 (05:00→12:00)
[2022-06-29] MEDS ORDERED: VANCOMYCIN 1 GM in NA CHLORIDE 0.9% 250 ML IVPB SCH (05:00)
[2022-06-29 05:03] LABS: CKMB Creatine Kinase MB 4.8 ng/mL (1.0-3.6)
[2022-06-29 05:09] LABS: Albumin 3.7 g/dL (3.4-5.0); Phosphorus 8.1 mg/dL (2.5-4.9); Protein, Total 7.8 g/dL (6.4-8.2)
[2022-06-29 05:15] LABS: Blood Morphology Comment NOT SEEN (NOT SEEN); Platelet Estimate DECR
--- NOTE | 2022-06-29 05:38 | P.PN ---
Date of Service: 06/29/22 Received a call at 0330 to assess patient. His blood pressure had been trending down throughout the day and Levophed was initiated earlier. When RN went to assess patient's neurologic status, it was noted that his pupils were completely constricted and nonreactive to light, gag reflex absent, and no response to painful stimuli. ABG was obtained. Dr. Morin was notified who recommended head CT, additional vasopressors, bicarb drip with dextrose, albumin, and 2L fluid bolus. BP responded well. Stat labs drawn- CBC, CMP, cardiac enzymes, lactate, ammonia, coags, blood cultures. Attempts have been made to reach family, but all phone numbers associated with patient are disconnected.
[2022-06-29 05:41] LABS: Magnesium 2.6 mg/dL (1.8-2.4)
[2022-06-29 05:43] LABS: Potassium 6.9 mmol/L (3.5-5.1)
[2022-06-29 05:49] LABS: Arterial Blood Carboxyhemoglob 0.8 % (0-1.5); Blood Gas Oxyhemoglobin 97.3 % (94-97); Blood O2 Saturation 99.3 % (92-98.5)
[2022-06-29] MEDS: carvediloL 25 MG TAB PO SCH ×2 (06:00→16:41)
[2022-06-29] MEDS ORDERED: VANCOMYCIN 2 GM in NA CHLORIDE 0.9% 500 ML IVPB SCH ×3 (06:00→08:00)
[2022-06-29] MEDS ORDERED: CEFEPIME 2 GM in NA CHLORIDE 0.9% 100 ML IV SCH (06:00)
[2022-06-29] MEDS: CEFEPIME 1 GM in NA CHLORIDE 0.9% 100 ML IV SCH (07:15)
[2022-06-29] MEDS: INSULIN -REGULAR HUMAN 50 UNIT/0.5 ML ML SQ SCH ×4 (07:30→18:00)
[2022-06-29] MEDS: NOREPINEPHRINE 16 MG in D5W 250 ML IV SCH ×2 (07:54→14:34)
[2022-06-29] MEDS ORDERED: NA CHLORIDE 0.9% 1,000 ML IV ONE (08:35)
[2022-06-29] MEDS: ENOXAPARIN 40 MG/0.4 ML SQ SCH (08:51)
[2022-06-29] MEDS: FUROSEMIDE 40 MG/4 ML VIAL IV SCH ×2 (08:51→16:38)
[2022-06-29] MEDS: AMLODIPINE 10 MG TAB PO SCH (08:52)
[2022-06-29] MEDS: NICOTINE 21 MG/PAT TD SCH (08:52)
[2022-06-29] MEDS ORDERED: HYDROMORPHONE HCL 2 MG/ML inj IV PRN (09:07)
--- NOTE | 2022-06-29 09:34 | P.CNS ---
Date of Consult: 06/29/22 Reason for Consult: Respiratory failure shock drug abuse Chief Complaint: Malignant HTN, CHF History of Present Illness: Patient is 47 years of age was admitted with malignant hypertension history of drug and alcohol abuse the point of discharge developed respiratory distress patient was intubated currently unresponsive apneustic breathing pinpoint pupils Allergies lorazepam [From Ativan] Allergy (Verified 11/20/20 02:18) Itching/Hives/Rash phenytoin [From Dilantin] Allergy (Verified 11/20/20 02:18) Itching/Hives/Rash Home Medications: NK [No Home Meds] 06/27/22 - Past Medical/Surgical History Diabetic: Yes -: Hypertension -: Diabetes -: Gout -: CHF -: COPD -: Right Forearm Psychosocial/ Personal History: Patient reports recent homelessnes. - Family History Father Medical History: Hypertension Mother Medical History: Hypertension, Diabetes - Social History Smoking Status: Current every day smoker Alcohol use: No CD- Drugs: Yes Caffeine use: Yes Place of Residence: Homeless Review of Systems is unable to be obtained Physical Examination Temp Pulse Resp BP Pulse Ox 97.8 F 82 28 H 102/74 100 06/29/22 04:00 06/29/22 06:45 06/29/22 06:45 06/29/22 08:51 06/29/22 06:45 General: Unresponsive Respiratory: Clear to auscultation bilaterally Cardiovascular: No edema Gastrointestinal: Hypoactive - Problems (1) Respiratory failure Current Visit: Yes Status: Acute Plan: Patient is 47 years of age with a history of alcohol drug abuse multiple needle cruz with thrombosed veins mated with malignant hypertension is currently unresponsive pinpoint pupils congested breathing percent FiO2 and vasopressors patient has multiorgan failure elevated liver enzymes renal failure also hyperkalemic this morning anion gap metabolic acidosis PT/INR elevated white count elevated currently comatose unlikely to survive chest x-ray endotracheal tube satisfactory position blood cultures pending Qualifiers: Chronicity: acute
[2022-06-29] MEDS ORDERED: NALOXONE 0.4 MG/ML VIAL ONE ×2 (09:45→09:55)
[2022-06-29] MEDS: DOPAMINE/D5W 400 MG/250 ML BAG IV SCH ×2 (09:45→18:00)
[2022-06-29] MEDS ORDERED: NA CHLORIDE 0.9% 1,000 ML ONE (09:50)
[2022-06-29] MEDS ORDERED: VASOPRESSIN 20 UNIT/ML VIAL ONE (09:53)
[2022-06-29] MEDS: D5W 1,000 ML with NA BICARB 8.4% 150 MEQ IV SCH ×4 (11:00→18:41)
[2022-06-29] MEDS ORDERED: GLUCAGON 1 MG/VIAL IM PRN (11:41)
[2022-06-29] MEDS ORDERED: D50W 25 GM/50 ML SYRINGE IV PRN (11:41)
[2022-06-29] MEDS ORDERED: FAMOTIDINE 20 MG/2 ML VIAL IV SCH ×2 (12:00)
[2022-06-29 12:19] LABS: Barbiturates NEGATIVE (NEGATIVE); Benzodiazepines POSITIVE (NEGATIVE); Cocaine NEGATIVE (NEGATIVE); METHAMPHETAM POSITIVE (NEGATIVE); Methadone NEGATIVE (NEGATIVE); Opiates NEGATIVE (NEGATIVE); Phencyclidine NEGATIVE (NEGATIVE); THC Cannibis NEGATIVE (NEGATIVE)
--- NOTE | 2022-06-29 12:39 | P.PN ---
Subjective Date of Service: 06/29/22 Chief Complaint: Malignant HTN, CHF Patient developed apneic spells yesterday, sedation with Precedex was held, patient subsequently intubated and put on mechanical ventilation. PICC line placed. He developed hypotension for which he was given IV normal saline bolus. Overnight patient developed profound hypotension, became profoundly unresponsive with pinpoint pupils. Blood work showed hyperkalemia, ROSAS, coagulopathy, markedly elevated LFT, lactic acidosis and elevated troponin. He was given IV normal saline bolus, albumin infusion and started on a pressor. Given bicarb infusion and treated for the hyperkalemia. He coded this morning, ACLS carried out for a few minutes with ROSC. Patient given Narcan for opioid reversal. Dopamine was added to Levophed. He is currently vent dependent with no spontaneous breathing, blood pressure maintained on 2 vasopressors, and profoundly unresponsive. No recorded fever. Physical Examination - Vital Signs Temperature: 97.6 F Blood Pressure: 167/98 Pulse: 74 Respirations: 31 Pulse Ox (%): 97 Assessment And Plan - Current Problems (Diagnosis) (1) Malignant hypertension Current Visit: Yes Status: Acute (2) Acute on chronic diastolic heart failure Current Visit: No Status: Acute (3) Methamphetamine abuse Current Visit: Yes Status: Acute (4) Type 2 diabetes mellitus Current Visit: Yes Status: Chronic Qualifiers: Diabetes mellitus retirement insulin use: with termite inspector use Diabetes mellitus complication status: with kidney complications Diabetes mellitus complication detail: with chronic kidney disease Chronic kidney disease stage 3 subtype: stage 3a (GFR 45-59) (5) Pulmonary hypertension Current Visit: No Status: Acute (6) Acute metabolic encephalopathy Current Visit: Yes Status: Acute (7) Acute renal failure Current Visit: Yes Status: Acute (8) Sepsis Current Visit: Yes Status: Acute (9) Coagulopathy Current Visit: Yes Status: Acute - Plan Physical Exam General: Unresponsive without sedation. Eyes: Pinpoint pupils nonreactive to light Respiratory: Vent dependent, no spontaneous breathing, markedly diminished breath sounds. Cardiovascular: Edema, Irregular heart rate/rhythm Gastrointestinal: Normal bowel sounds, No tenderness, distended. Neurological: Coma. Plan: Patient symptoms is likely related to methamphetamine toxicity Very poor prognosis and unlikely to survive. Staff and providers had difficulty reaching her family member. Mother was eventually reached who came to the hospital today accompanied by patient father Upon discussion with the parent, they requested DNR. DNR is appropriate and recommended at this time given that he is currently on life support with multiple organ failure. Parent mentioned patient has an 18-year-old son who they need to inform about patient's condition. I impressed upon the parent that patient 18-year-old son by proxy is the medical decision maker has a right to be part of the medical decision making process. At the moment, DNR is appropriate and recommended that we change his CODE STATUS to DNR. Parent stated they will consider withdrawal of care based on patient response to treatment within the next couple of days. Continue aggressive measures with antibiotics, aggressive IV hydration, monitor and optimize electrolytes. Continue vasopressors and wean as tolerated. Continue mechanical ventilation. Checking toxicology screen. He will need CT head to evaluate for intracranial hemorrhage, acute hemorrhagic stroke (which is reported in some cases of methamphetamine toxicity) and cerebral edema but patient is too unstable to go for CT scan. Monitor response to treatment. Critical care time spent on ACLS, managing patient hypotension, acute respiratory failure and multiple organ failure is about 68 minutes.
[2022-06-29] MEDS ORDERED: SODIUM CHLORIDE 0.9% 10ML INJ IV PRN (12:52)
[2022-06-29] MEDS: PANTOPRAZOLE 40 MG INJ IVP SCH (13:44)
[2022-06-29] MEDS ORDERED: PANTOPRAZOLE 40 MG INJ IVP SCH (14:00)
[2022-06-29 14:32] LABS: Magnesium 2.1 mg/dL (1.8-2.4); Phosphorus 6.8 mg/dL (2.5-4.9)
[2022-06-29 14:50] LABS: Specific Gravity >= 1.030 (1.005-1.030); Urine Blood 3+ (Negative); Urine Color Yellow (Yellow); Urine Glucose Negative (Negative); Urine Protein 3+ (Negative); Urine Urobilinogen 0.2 mg/dL (0.2-1.0)
[2022-06-29 14:53] LABS: Urine Clarity Cloudy (Clear)
[2022-06-29 15:20] LABS: Urine Bacteria Loaded /HPF (<20)
[2022-06-29 15:25] LABS: Urine Bilirubin 1+ (Negative)
--- NOTE | 2022-06-29 19:13 | CON ---
Date of Consultation: 06/29/2022 Reason For Consultation: Electrolyte imbalance, renal insufficiency. History Of Present Illness: Mr. Smith is a 47-year-old male, who presented to the hospital with acu te congestive heart failure. The patient was admitted to the ICU for heart failure management; [facility], the patient had suffered significant decompensation overnight, had went into shock, unclear if th e patient had acute CVA and required intubation and is now on pressor support. Our consultation was requested for renal management. The patient had renal function of baseline crea tinine approximately 1.6 with the events over the last 12 hours. The patient has significant acute k idney injury with a creatinine now at 4 and the patient is nonoliguric. Initially, the patient did h ave potassium drawn at 6.9, but that was found to be hemolyzed and repeat potassium level did show a 4.9 level. He is currently seen at the bedside. He is intubated. He is not sedated. The patient is minimally responsive. He does require 2 pressors at this time. The patient has significant social economic issues. The patient is homeless with a history of substa nce abuse. The patient's family was here, able to come to the bedside. The patient has been made DN R. They are monitoring the patient's clinical progress to consider withdrawal of care at a later kevin e. Chart was reviewed and all medication management was assessed. Past Medical History: Significant for hypertension, diabetes, congestive heart failure. Family History: Noncontributory. Social History: The patient with history of substance abuse and multiple substances. Physical Examination: Vital Signs: Blood pressure is 83/46, pulse 72, afebrile. Input and output, the patient has had 90 mL of urine output at shift. General: Intubated. Heart: Regular rate and rhythm. No murmurs, rubs, gallops. Lungs: Transmitted sounds noted. Abdomen: Soft. Extremities: No edema. Neuro: Pinpoint pupils noted. : Babb catheter with a scant amount of mary beth urine. Laboratory Data: CBC; WBC 28.4, hemoglobin 14, hematocrit 42.7, platelet count 105. Serum chemistry as stated repeat potassium was 4.9, sodium 131, chloride 101, CO2 18, BUN and creatinine 48 and 4.04 , glucose 97, calcium 7.4, phosphorus 8.1, magnesium 2.6, bilirubin 3, AST 11,526, ALT 4381, alkaline phosphatase 134. Procalcitonin is 15. Troponin is 785. Impression: 1.Acute kidney injury in the setting of shock, possibly ATN. 2.Cardiac arrest. 3.Respiratory failure. 4.Shock liver. Plan: Goal will be to maintain MAP over 70 with pressor support. We will continue monitoring for an y need for acute renal replacement therapy. The patient is intubated and the patient's bicarbonate i nfusion will be decreased to 100 mL an hour at this time. Continue to up titrate pressor support. If renal placement therapy is required, the patient would need to be at higher level of care for CRRT as a slow dialysis will not provide adequate clearance in this setting. Avoid all NSAIDs and iodinated contrast. Renal dose all medications. We will continue to follow. /JACQUELINE Voice ID: [id number] Report ID: [id number]
[2022-06-29] MEDS: ATORVASTATIN 40 MG TAB PO SCH (20:15)
[2022-06-30] MEDS: DOPAMINE/D5W 400 MG/250 ML BAG IV SCH ×3 (00:21→15:20)
[2022-06-30] MEDS: DEXTROSE 10%-WATER 500 ML IV SCH ×3 (00:30→10:30)
[2022-06-30] MEDS: ALBUTEROL 2.5 MG/3 ML NEB SOL NEB SCH ×4 (02:10→20:20)
[2022-06-30] MEDS: D5W 1,000 ML with NA BICARB 8.4% 150 MEQ IV SCH ×4 (02:15→10:14)
[2022-06-30 05:21] LABS: Hematocrit 33.4 % (39.6-49.0); Lymphocytes % 5.4 % (15.3-44.8); MCV 86.4 fL (80-100); MPV 9.6 fL (7.6-11.3); RBC Red Blood Cell Count 3.87 M/uL (4.33-5.43)
[2022-06-30 05:46] LABS: Albumin 2.9 g/dL (3.4-5.0); Alkaline Phosphatase 170 U/L (45-117); BUN Blood Urea Nitrogen 65 mg/dL (7-18); Bicarbonate 22 mmol/L (21-32); Bilirubin Total 4.2 mg/dL (0.2-1.0); Glucose Level 196 mg/dL (74-106); Potassium 3.9 mmol/L (3.5-5.1); Protein, Total 5.8 g/dL (6.4-8.2); Sodium Level 132 mmol/L (136-145)
[2022-06-30] MEDS: carvediloL 25 MG TAB PO SCH ×3 (06:00→23:53)
[2022-06-30] MEDS: INSULIN -REGULAR HUMAN 50 UNIT/0.5 ML ML SQ SCH ×4 (06:00→16:59)
[2022-06-30] MEDS: PANTOPRAZOLE 40 MG INJ IVP SCH ×2 (06:06→13:11)
[2022-06-30] MEDS: CEFEPIME 1 GM in NA CHLORIDE 0.9% 100 ML IV SCH (06:10)
[2022-06-30 06:21] LABS: ALT/SGPT 7611 U/L (12-78); Glomerular Filtration Rate 11 ml/min (=/>90)
[2022-06-30 06:33] LABS: AST/SGOT > 20000 U/L (15-37)
[2022-06-30] MEDS: AMLODIPINE 10 MG TAB PO SCH (09:00)
[2022-06-30] MEDS ORDERED: ENOXAPARIN 30 MG/0.3 ML SQ SCH (09:00)
[2022-06-30] MEDS: NICOTINE 21 MG/PAT TD SCH (09:33)
[2022-06-30] MEDS: FUROSEMIDE 40 MG/4 ML VIAL IV SCH (09:33)
--- NOTE | 2022-06-30 10:46 | RAD REPORT ---
EXAM DESCRIPTION: RAD - Chest Single View - 06/30/2022 10:20 am CLINICAL HISTORY: Intubated. Pulmonary edema Chest pain. COMPARISON: Chest Single View dated 06/28/2022; Chest Single View dated 06/28/2022; Chest Single View da corina 06/28/2022; Chest Single View dated 06/26/2022 FINDINGS: Portable technique limits examination quality. Tip of the endotracheal tube is in stable position at the level of the superior aortic arch. Enteric tube descends into upper abdomen. Left PICC line has tip likely proximal SVC.Mild improvement in lung aeration is seen since prior study. Left basilar opacification process. The heart is moderately enla rged.
--- NOTE | 2022-06-30 13:18 | P.PN ---
Subjective Date of Service: 06/30/22 Chief Complaint: Malignant HTN, CHF No event since last night. Levophed drip has been weaned off. Patient is a little bit more responsive and withdraws slightly to pain. Following 150 ml urine output over the past 24 hours Physical Examination - Vital Signs Temperature: 98.2 F Blood Pressure: 134/76 Pulse: 89 Respirations: 22 Pulse Ox (%): 89 Assessment And Plan - Current Problems (Diagnosis) (1) Malignant hypertension Current Visit: Yes Status: Acute (2) Acute on chronic diastolic heart failure Current Visit: No Status: Acute (3) Methamphetamine abuse Current Visit: Yes Status: Acute (4) Type 2 diabetes mellitus Current Visit: Yes Status: Chronic Qualifiers: Diabetes mellitus roasterman insulin use: with detention use Diabetes mellitus complication status: with kidney complications Diabetes mellitus complication detail: with chronic kidney disease Chronic kidney disease stage 3 subtype: stage 3a (GFR 45-59) (5) Pulmonary hypertension Current Visit: No Status: Acute (6) Acute metabolic encephalopathy Current Visit: Yes Status: Acute (7) Acute renal failure Current Visit: Yes Status: Acute (8) Sepsis Current Visit: Yes Status: Acute (9) Coagulopathy Current Visit: Yes Status: Acute (10) Acute liver failure Current Visit: Yes Status: Acute - Plan Physical Exam General: Unresponsive without sedation. Eyes: Pinpoint pupils nonreactive to light Respiratory: Vent dependent, no spontaneous breathing, markedly diminished breath sounds. Cardiovascular: Edema, Irregular heart rate/rhythm Gastrointestinal: Normal bowel sounds, No tenderness, distended. Neurological: Coma. Plan: Patient symptoms is likely related to methamphetamine toxicity Very poor prognosis and unlikely to survive. Patient is made DNR by family. Adult son is in agreement with DNR. Family also requests no escalation of care. Parent stated they will consider withdrawal of care based on patient response to treatment within the next couple of days. Continue antibiotics, aggressive IV hydration, monitor and optimize electrolytes. Continue vasopressors and wean as tolerated. Continue mechanical ventilation. Toxicology screen is positive for amphetamine. He will need CT head to evaluate for intracranial hemorrhage, acute hemorrhagic stroke (which is reported in some cases of methamphetamine toxicity) and cerebral edema but patient is unstable to go for CT scan. We will get a CT head as soon as he is stable. Neurology consult. Nephrology input appreciated. Patient with anuria. Serum creatinine continues to trend down, AST continues to trend up now greater than 20,000. Patient with acute liver failure. Poor prognosis. Monitor response to treatment.
[2022-06-30] MEDS ORDERED: CALCIUM GLUCONATE 1 GM IVPB 1 GM/50 ML BAG IV ONE (14:15)
[2022-06-30] MEDS: D5 0.45 NS 1,000 ML IV SCH (15:03)
--- NOTE | 2022-06-30 17:58 | PN ---
Date of Progress Note: 06/30/2022 Subjective: The patient is seen at the bedside. No overnight events reported. The patient remains intubated. Pressor requirements have decreased. The patient remains nonoliguric. Objective: Vital Signs: Blood pressure is 134/76, pulse 89, afebrile. Input and output; urine outp ut yesterday recorded 720, but today patient has had less than 10 mL. General: Intubated, not sedated. No acute distress. Heart: Regular rate and rhythm. No murmurs, rubs, or gallops. Lungs: Transmitted sounds noted. Abdomen: Distended, soft. Sluggish bowel sounds. Extremities: 1+ edema of the thighs. Laboratory Data: Sodium 132, potassium 3.9, chloride 94, CO2 22, BUN 65, creatinine 5.85, glucose 19 6, calcium 6.3, corrected calcium in view of albumin is 7.3, bilirubin 4.2. AST and ALT noted to hav e worsening with AST over 20,000 and ALT over 7611, albumin is 2.9. Medications: Reviewed. The patient on D5 with 150 mEq of sodium bicarb at 150 mL/hour. Continues o n dopamine. Also on broad-spectrum antibiotics. Impression: 1.Hemodynamic shock, unclear etiology. 2.Multiorgan failure. 3.Acute renal failure, likely from ATN. 4.Shock liver. 5.Acute respiratory failure. 6.Malignant hypertension. Plan: The patient is volume repleted at this time. Continue pressor support for shock management. The patient will have seen significant insensible losses and hence he will be maintained on D5 half N S at 75 mL an hour at this time. Continue maintaining MAP over 70. Renally dose all medications. Monitor antibiotic levels. Avoid N SAIDs and iodinated contrast. The patient has poor prognosis at this time as his multiorgan failure continues to progress. There is no urgent indication for renal replacement therapy at this time. Continue goals of care dis cussion with family. We will continue to follow. SE/MODL Voice ID: [id number] Report ID: [id number]
[2022-06-30] MEDS ORDERED: NOREPINEPHRINE 4 MG/4 ML VIAL ONE (18:23)
[2022-06-30] MEDS ORDERED: NA CHLORIDE 0.9% 0 ML ONE (18:23)
[2022-06-30] MEDS ORDERED: D5W 0 ML IV ONE (18:24)
[2022-06-30] MEDS ORDERED: NOREPINEPHRINE BITARTRATE/D5W 0 MG/0 ML BAG IV ONE (18:24)
[2022-06-30] MEDS: ATORVASTATIN 40 MG TAB PO SCH (20:02)
[2022-06-30] MEDS: FENTANYL CITR 100 MCG/2 ML IV PRN (21:43)
[2022-07-01] MEDS: PANTOPRAZOLE 40 MG INJ IVP SCH ×2 (01:39→13:48)
[2022-07-01] MEDS: FENTANYL CITR 100 MCG/2 ML IV PRN ×3 (02:02→21:06)
[2022-07-01] MEDS: ALBUTEROL 2.5 MG/3 ML NEB SOL NEB SCH ×4 (02:35→20:00)
[2022-07-01 05:14] LABS: Absolute Lymphocytes (CBC) 0.8 K/uL (0.7-4.9); Hematocrit 34.5 % (39.6-49.0); Lymphocytes % 5.6 % (15.3-44.8); MCV 87.8 fL (80-100); MPV 9.5 fL (7.6-11.3); RBC Red Blood Cell Count 3.92 M/uL (4.33-5.43)
[2022-07-01 05:47] LABS: Blood Morphology Comment NOTED (NOT SEEN); Platelet Estimate ADEQ; Teardrop Cell 1+
[2022-07-01] MEDS: INSULIN -REGULAR HUMAN 50 UNIT/0.5 ML ML SQ SCH ×4 (06:00→16:15)
[2022-07-01 06:14] LABS: Albumin 2.8 g/dL (3.4-5.0); Bilirubin Total 6.1 mg/dL (0.2-1.0); Potassium 3.6 mmol/L (3.5-5.1); Protein, Total 5.4 g/dL (6.4-8.2)
[2022-07-01] MEDS: carvediloL 25 MG TAB PO SCH ×2 (06:14→16:14)
[2022-07-01] MEDS: CEFEPIME 1 GM in NA CHLORIDE 0.9% 100 ML IV SCH (06:14)
[2022-07-01] MEDS: DEXTROSE 10%-WATER 500 ML IV SCH (06:30)
[2022-07-01] MEDS ORDERED: KCL 20 MEQ/100 mL IVPB 20 MEQ/100 ML BAG IV SCH (07:00)
[2022-07-01] MEDS: AMLODIPINE 10 MG TAB PO SCH (08:00)
[2022-07-01] MEDS: NICOTINE 21 MG/PAT TD SCH (08:39)
[2022-07-01] MEDS ORDERED: VANCOMYCIN 1.5 GM in NA CHLORIDE 0.9% 500 ML IVPB SCH (09:00)
--- NOTE | 2022-07-01 12:37 | P.PN ---
Subjective Date of Service: 07/01/22 Chief Complaint: Malignant HTN, CHF Patient remains unresponsive without sedation. He was weaned off vasopressors last night. Blood pressure has been stable. Renal function is worse, patient is still anuric. 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 Eyes: Constricted pupils reactive to light Respiratory: On mechanical ventilation, has spontaneous breathing, occasionally exhibit agonal breathing, markedly diminished breath sounds. Cardiovascular: Edema, Irregular heart rate/rhythm Gastrointestinal: Normal bowel sounds, No tenderness, distended. Neurological: Coma. Upper limbs-decorticate responds to pain stimuli. Lower limbs-withdraws both legs slightly with painful stimulus. Plan: Patient symptoms is likely related to methamphetamine toxicity. Urine toxicology screen is positive for amphetamine. Multiple organ failure-brain, kidney, liver, pulmonary. History of congestive heart failure Very poor prognosis. Speech therapy reported no gag reflex. Renal function continues to worsen. Patient is made DNR by family. Adult son is in agreement with DNR. Family requested no escalation of care. No dialysis per family. EEG done today. CT head ordered. Neurology consulted to evaluate brain function. Family leaning towards withdrawal of care. Continue mechanical ventilation for now. Nephrology input appreciated.
[2022-07-01] MEDS: D5 0.45 NS 1,000 ML IV SCH (13:45)
--- NOTE | 2022-07-01 16:09 | RAD REPORT ---
EXAM DESCRIPTION: CT - Head Brain Wo Cont - 07/01/2022 3:30 pm CLINICAL HISTORY: Alteration of awareness/confusion COMPARISON: None TECHNIQUE: Computed axial tomography of the head was obtained. IV contrast was not requested. All CT scans are performed using dose optimization technique as appropriate and may include automated exposure control or mA/KV adjustment according to patient size. FINDINGS: 16 millimeter low-density area right internal capsule. Smaller low-density area right basa l ganglia. Small low-density area left basal ganglia appears more chronic. Mild to moderate low-density areas within periventricular, deep and subcortical white matter. Poor differentiation of the corcoran and white matter. Sulci appear somewhat effaced. No hydrocephalus An intracranial bleed is not seen . The ventricles are normal in caliber. IMPRESSION: It appears that that cerebral edema is present. Low-density areas within the right internal capsule and right basal ganglia may represent an acute/east bacute infarcts. Mild to moderate low-density areas within periventricular, deep and subcortical white matter is nonsp ecific When the patient's condition permits MRI of the brain is recommended
[2022-07-01] MEDS ORDERED: ALBUTEROL 2.5 MG/3 ML NEB SOL NEB PRN (17:00)
[2022-07-01] MEDS: ATORVASTATIN 40 MG TAB PO SCH (19:35)
[2022-07-01 21:55] VITALS: O2SAT 99
--- NOTE | 2022-07-01 21:58 | P.PN ---
Date of Service: 07/01/22 Vital Signs Temp Pulse Resp BP Pulse Ox 96.9 F 77 14 136/87 99 07/01/22 20:00 07/01/22 20:00 07/01/22 21:36 07/01/22 20:00 07/01/22 21:36 Medications Acetaminophen (Acetaminophen 500 Mg Tab) 500 mg PO Q4HP PRN PRN Reason: Pain scale 2-4 (Mild) Last Admin: 06/27/22 09:27 Dose: 500 mg Albuterol Sulfate (Albuterol 2.5 Mg/3 Ml Neb Sagrario) 2.5 mg NEB [id number] PRIYANKA Last Admin: 07/01/22 20:00 Dose: 2.5 mg Albuterol Sulfate (Albuterol 2.5 Mg/3 Ml Neb Sagrario) 2.5 mg NEB [id number] PRN PRN Reason: SHORTNESS OF BREATH Atorvastatin Calcium (Atorvastatin 40 Mg Tab) 40 mg PO BEDTIME PRIYANKA Last Admin: 07/01/22 19:35 Dose: Not Given Carvedilol (Carvedilol 25 Mg Tab) 25 mg PO BID 6AM 6PM PRIYANKA Last Admin: 07/01/22 16:14 Dose: Not Given Diazepam (Diazepam 10 Mg/2 Ml Inj Syringe) 5 mg IV Q4H PRN PRN Reason: Agitation Last Admin: 06/28/22 17:00 Dose: 5 mg Fentanyl Citrate (Fentanyl Citr 100 Mcg/2 Ml) 25 mcg IV Q4HP PRN PRN Reason: Pain scale 8-10 (Severe) Last Admin: 07/01/22 21:06 Dose: 25 mcg Glucagon (Glucagon 1 Mg/Vial) 1 mg IM 1X PRN; Protocol PRN Reason: HYPOGLYCEMIA Haloperidol Lactate (Haloperidol Lact 5 Mg/Ml Inj) 2 mg IV Q4HP PRN PRN Reason: AGITATION Propofol (Diprivan) 1,000 mg in 100 mls @ 6.365 mls/hr IV TITR PRIYANKA; Protocol Last Titration: 06/29/22 02:03 Dose: 25 mcg/kg/min, 15.9 mls/hr Dopamine HCl/Dextrose (Dopamine 400 Mg/250 Ml D5w (Premix)) 400 mg in 250 mls @ 10.225 mls/hr IV TITR PRIYANKA; Protocol Last Titration: 06/30/22 21:00 Dose: 0 mcg/kg/min, 0 mls/hr Cefepime HCl 1 gm/ Sodium (Chloride) 100 mls @ 200 mls/hr IV Q24H PRIYANKA Last Admin: 07/01/22 06:14 Dose: 100 mls Norepinephrine Bitartrate 16 (mg/ Dextrose) 266 mls @ 10.88 mls/hr IV TITR PRIYANKA; Protocol Last Titration: 06/29/22 22:25 Dose: Infused Vancomycin HCl 1.5 gm/ Sodium (Chloride) 500 mls @ 333.333 mls/hr IVPB Q48H PRIYANKA Last Admin: 07/01/22 08:44 Dose: 500 mls Dextrose/Sodium Chloride (Dextrose 5% O.45% Saline) 1,000 mls @ 50 mls/hr IV .Q20H [facility] Last Admin: 07/01/22 13:45 Dose: 1,000 mls Insulin Human Regular (Insulin -Regular Human 50 Unit/0.5 Ml Ml) 0 unit SQ Q6HR [facility]; Protocol Last Admin: 07/01/22 16:15 Dose: Not Given Nicotine (Nicotine 21 Mg/Pat) 21 mg TD DAILY [facility] Last Admin: 07/01/22 08:39 Dose: 21 mg Ondansetron HCl (Ondansetron 4 Mg/2 Ml Vial) 4 mg IV Q6HP PRN PRN Reason: NAUSEA / VOMITING Last Admin: 06/27/22 03:13 Dose: 4 mg Pantoprazole Sodium (Pantoprazole 40 Mg Inj) 40 mg IVP Q12H PRIYANKA; Protocol Last Admin: 07/01/22 13:48 Dose: 40 mg Sodium Chloride (Flush Normal Saline 10 Ml) 10 ml IV BID [facility] Last Admin: 07/01/22 19:48 Dose: 10 ml Sodium Chloride (Sodium Chloride 0.9% 10ml Inj) 10 ml IV UD PRN PRN Reason: Diluant Assessment/ Plan: Nephrology Limited IH/ ROS due to AMS Case reviewed with the nurse at the bedside Vitals, medications, blood work and imaging reviewed in the chart. NAD. Pinpoint pupils. NCAT. MMM. Neck supple. RRR. Abd ND. No C/C/E. No rash. Unresponsive. No speech. Muscle rigidity and spasm. Intubated. Babb with dark urine. ROSAS likely ATN -No NSAIDs -Continue IVF -No HD at this time as per the family Acute hepatitis/ shocked liver -Monitor LFTs -Supportive care Toxic metabolic encephalopathy -Neurology following Poor prognosis.
[2022-07-02] MEDS: PANTOPRAZOLE 40 MG INJ IVP SCH ×2 (01:01→14:00)
[2022-07-02] MEDS: ALBUTEROL 2.5 MG/3 ML NEB SOL NEB SCH ×4 (01:05→20:00)
--- NOTE | 2022-07-02 02:10 | CON ---
Consultation called because the patient is unresponsive with the . History Of Present Illness: Mr. Smith is a 47-year-old patient with uncontrolled malignant hyperten chikis, dyslipidemia, and chronic drug abuse including amphetamines, who comes to [facility] w ith chest pain, shortness of breath, and apparently had left the hospital day before against medical advice as he was diagnosed with CHF exacerbation. The patient apparently is not compliant with medic ations and has been homeless. Blood pressures at [facility] were 232/133, elevated glucose of 228, c reatinine baseline elevated to 1.6, and his chest x-ray did show volume overload. He did have diuret ic use with Lasix and pressure control with nitroglycerin drip, however, the patient was not cooperat anna, pulled out lines and his oxygen tube and was showing signs of withdrawals of methamphetamine, wh ich was positive on his urinalysis. The patient coded and his following resuscitation, pH was 7.28. After intubation, PO2 increased to 330, pCO2 of 27.4. Today, he has evidence of significant multior franchesca failure, creatinine 7.79, AST 6949, ALT 5647, total bilirubin 6.1, calcium low at 6.7, and his to x screen was positive for amphetamines and benzodiazepines. COVID test is negative. His brain CT sc an shows evidence of a right internal capsule right basal ganglia, large acute subacute stroke with m oderate small-vessel ischemic disease in the periventricular and deep subcortical white matter. The nursing staff note and the hospitalist note that the patient has had decorticate posturing of his arms when stimulated in the right side. He does have movement more to stimulation of his lower than upper extremities. He is able to withdraw more on the right than on the left, that means less withd rawing on the left foot, especially with stimulation. Otherwise, nurse's note and my evaluation has equally round and reactive pupils to light and there is slightly breathing over the ventilator. Past Medical History: As noted. Gout, congestive heart failure, COPD, diabetes, and hypertension. Allergies: LORAZEPAM AND PHENYTOIN. Medications: At home, NPH insulin 10 units twice daily, nicotine patch daily, ProAir HFA 2 puffs 3 t imes a day, aspirin 81 mg daily, Lipitor 40 mg at bedtime, Lasix 40 mg twice daily, Coreg 25 mg twice daily, and lisinopril 20 mg daily. Social History: The patient is currently homeless. He is a current tobacco smoker and amphetamine u ser. Family History: Positive for hypertension in father and mother and diabetes in mother. Review of Systems: Unable to process at this point, the patient is intubated in the ICU. Physical Examination: Vital Signs: Blood pressure 133/90, pulse 74, respiratory rate 18, temperature 97.3, and oxygen satu ration 99%. Weight 270 pounds and height 5 feet 11 inches, BMI is elevated. General: Mr. Smith is intubated in ICU. HEENT: He appears normocephalic and atraumatic. His sclerae are anicteric. Chest: Clear with good air movement. Abdomen: Obese and soft. Extremities: Show no significant edema or cyanosis. Neurologically: No response to verbal stimulation. No spontaneous eye opening. On cranial nerve ex amination, his pupils are equally round and reactive. Does have Dolls. He is able to breathe over t he ventilator. Face appears symmetric despite the findings of his stroke. Generally, neurological e xamination unable to fully assess. He does have decorticate posturing with stimulation of the upper extremities. He does withdraw the right lower extremity more than the left lower extremity. He does have slightly increased tone in all extremities. Unable to assess his coordination, sensation, and gait. Assessment: Mr. Smith is a 47-year-old patient, who is DNR at this point. He does have chronic amp hetamine use and subacute to acute stroke on the right basal ganglia and posterior frontal region lik maylin producing some more left-sided than right-sided weakness. He has multiorgan failure including li alan and kidney failure. The patient's family does indicate that he is a do not resuscitate, and at t his point given his multiorgan failure and status post resuscitation, he is not likely to recover it well. He does have an EEG pending. Plan: 1.I reviewed the EEG. 2.The patient's prognosis is poor for good recovery and that the family is intended to withdraw care , especially if he is unable to maintain his ventilatory support. 3.At this point, continue supportive care until the EEG is reviewed tomorrow. TALHA/JACQUELINE Voice ID: [id number] Report ID: [id number]
[2022-07-02 05:21] LABS: Absolute Lymphocytes (CBC) 1.2 K/uL (0.7-4.9); Hematocrit 34.9 % (39.6-49.0); Lymphocytes % 9.1 % (15.3-44.8); MCV 85.8 fL (80-100); MPV 9.3 fL (7.6-11.3); RBC Red Blood Cell Count 4.06 M/uL (4.33-5.43)
[2022-07-02] MEDS: CEFEPIME 1 GM in NA CHLORIDE 0.9% 100 ML IV SCH (05:56)
[2022-07-02] MEDS: carvediloL 25 MG TAB PO SCH ×2 (06:00→17:06)
[2022-07-02] MEDS: INSULIN -REGULAR HUMAN 50 UNIT/0.5 ML ML SQ SCH ×4 (06:00→17:05)
[2022-07-02 06:10] LABS: Albumin 2.7 g/dL (3.4-5.0); Bilirubin Total 7.4 mg/dL (0.2-1.0); Phosphorus 6.3 mg/dL (2.5-4.9); Potassium 4.2 mmol/L (3.5-5.1); Protein, Total 5.6 g/dL (6.4-8.2)
--- NOTE | 2022-07-02 06:22 | RAD REPORT ---
EXAM DESCRIPTION: RAD - Chest Single View - 07/02/2022 4:57 am CLINICAL HISTORY: Intubation, respiratory distress COMPARISON: Portable June 30 TECHNIQUE: AP portable chest image was obtained 07/02/2022 4:57 am . FINDINGS: Endotracheal tube position has not changed, approximately 5 cm above the darci. NG tube h as been retracted. Tip is in the midthoracic esophagus. No change in positioning of the left-sided PI CC line. Retrocardiac left base remains obscured by body habitus, portable technique and heart size. Left base lung parenchymal process cannot be excluded. Increased interstitial opacification noted in both lung bang similar to prior imaging. Stable cardiomegaly seen. Central vasculature remains prominent. No pneumothorax or enlarging pleural effusion. No acute bony abnormality seen. No acute aortic findi ngs suspected. IMPRESSION: Lung parenchymal opacification is not clearly different. Heart size remains prominent. O verall mild pulmonary edema pattern is not clearly different from June 30. NG tube has been retracted. Tip is in the midthoracic esophagus. ET tube and PICC line are stable in position.
[2022-07-02 07:14] VITALS: BMI 38.7
[2022-07-02] MEDS: NICOTINE 21 MG/PAT TD SCH (09:31)
[2022-07-02] MEDS: D5 0.45 NS 1,000 ML IV SCH (10:59)
--- NOTE | 2022-07-02 13:16 | P.PN ---
Subjective Date of Service: 07/02/22 Chief Complaint: Malignant HTN, CHF Subjective: No new changes Physical Examination - Vital Signs Temperature: 97.6 F Blood Pressure: 147/92 Pulse: 81 Respirations: 24 Pulse Ox (%): 100 - Physical Exam General: Other (unresponsive, stuperous) HEENT: Atraumatic, Normocephalic Respiratory: Other (mechanically ventilated) Cardiovascular: No edema, Normal pulses Assessment And Plan - Current Problems (Diagnosis) (1) Accelerated hypertension Current Visit: Yes Status: Acute (2) Acute liver failure Current Visit: Yes Status: Acute (3) Acute metabolic encephalopathy Current Visit: Yes Status: Acute (4) Acute on chronic systolic heart failure Current Visit: Yes Status: Acute (5) Acute renal failure Current Visit: Yes Status: Acute (6) Coagulopathy Current Visit: Yes Status: Acute (7) Malignant hypertension Current Visit: Yes Status: Acute (8) Methamphetamine abuse Current Visit: Yes Status: Acute (9) COPD (chronic obstructive pulmonary disease) Current Visit: Yes Status: Chronic Qualifiers: (10) Type 2 diabetes mellitus Current Visit: Yes Status: Chronic Qualifiers: Diabetes mellitus long term care administrator insulin use: with long term care administrator use Diabetes mellitus complication status: with kidney complications Diabetes mellitus complication detail: with chronic kidney disease Chronic kidney disease stage 3 subtype: stage 3a (GFR 45-59) - Plan Assessment Patient is a 47 year old male with morbid obesity. He was admitted with methamphetamine toxicity complicated by CVA, cerebral edema and cardiac arrest. He is currently on the mechanical ventilator and minimally responsive. Toxic metabolic encephalopathy Methamphetamine toxicity CVA and cerebral edema Multi-organ failure PLAN: Patient has been evaluated by Neurology. Plans to speak with family regarding goals of care Will continue supportive care Poor prognosis in the setting of multi-organ failure Patient is DNR.
[2022-07-02] MEDS ORDERED: DOPAMINE 400 MG/250ML D5W PREMIX IV ONE (13:26)
[2022-07-02] MEDS ORDERED: EPINEPHrine 1 MG/10 ML SYR IV ONE (13:26)
[2022-07-02] MEDS ORDERED: SODIUM CHL 0.9% 1000 ML BAG IV ONE (13:26)
[2022-07-02] MEDS: FENTANYL CITR 100 MCG/2 ML IV PRN (14:32)
[2022-07-02] MEDS: ATORVASTATIN 40 MG TAB PO SCH (21:00)
[2022-07-02] MEDS ORDERED: D5 0.9 NS 1,000 ML IV SCH (23:45)
[2022-07-03] MEDS: ALBUTEROL 2.5 MG/3 ML NEB SOL NEB SCH ×4 (02:00→20:00)
[2022-07-03] MEDS: PANTOPRAZOLE 40 MG INJ IVP SCH ×2 (02:00→13:38)
[2022-07-03] MEDS: CEFEPIME 1 GM in NA CHLORIDE 0.9% 100 ML IV SCH (06:00)
[2022-07-03] MEDS: carvediloL 25 MG TAB PO SCH (06:00)
[2022-07-03] MEDS: INSULIN -REGULAR HUMAN 50 UNIT/0.5 ML ML SQ SCH ×2 (06:00)
[2022-07-03] MEDS: FENTANYL CITR 100 MCG/2 ML IV PRN ×2 (07:27→14:14)
--- NOTE | 2022-07-03 08:23 | EEG ---
CHART: [id number] TEST ID#: [id number] DATE OF STUDY: 07-01-2022 THE EEG WAS RECORDED PORTABLE IN THE ICU ON A 14 CHANNEL MACHINE. ELECTRODES WERE APPLIED IN THE USUAL MANNER USING THE INTERNATIONAL 10-20 SYSTEM. THE WAKING BACKGROUND RHYTHM IN THIS RECORD CONSISTS OF VERY POORLY DEVELOPED AND POORLY ORGANIZED WAVES OF 3-4 HZ., IN A WIDE DISTRIBUTION WHICH ATTENUATE NORMALLY WITH EYE OPENING. MODERATE VOLTAGE DIAPHASIC WAVES ARE NOTED IN THE FRONTAL AND CENTRAL REGIONS. THERE IS NO SPONTANEOUS CHANGE IN THE EEG BACKGROUND. THERE ARE NO FOCAL OR LATERALIZING FEATURES. NO EPILEPTIFORM ACTIVITY APPEARS. SLEEP DID NOT OCCUR. HYPERVENTILATION WAS NOT PERFORMED. PHOTIC STIMULATION WAS NOT PERFORMED. IMPRESSION: THIS IS A SEVERELY ABNORMAL ROUTINE EEG DUE TO A VERY SLOW BACKGROUND WITH FRONTAL AND CENTRAL DIAPHASIC ACTIVITY. THERE IS NO SPONTANEOUS CHANGE IN THE EEG BACKGROUND. THIS FINDING IS CONSISTENT WITH A NON-SPECIFIC SEVERE DIFFUSE DISTURBANCE IN CEREBRAL ACTIVITY.
[2022-07-03] MEDS: NICOTINE 21 MG/PAT TD SCH (09:00)
--- NOTE | 2022-07-03 09:24 | P.PN ---
Subjective Date of Service: 07/03/22 Chief Complaint: Malignant HTN, CHF Subjective: No new changes (Patient terminally extubated after family withdraw care. He is being considered for inpatient hospice) Physical Examination - Vital Signs Temperature: 98.2 F Blood Pressure: 147/75 Pulse: 83 Respirations: 37 Pulse Ox (%): 97 - Physical Exam General: Other (unresponsive) HEENT: Atraumatic, Normocephalic Neck: Supple Respiratory: Clear to auscultation bilaterally, Normal air movement Cardiovascular: No edema, Normal pulses, Regular rate/rhythm, Normal S1 S2 Musculoskeletal: No clubbing, No swelling, No contractures Assessment And Plan - Current Problems (Diagnosis) (1) Accelerated hypertension Current Visit: Yes Status: Acute (2) Acute liver failure Current Visit: Yes Status: Acute (3) Acute metabolic encephalopathy Current Visit: Yes Status: Acute (4) Acute on chronic systolic heart failure Current Visit: Yes Status: Acute (5) Acute renal failure Current Visit: Yes Status: Acute (6) Coagulopathy Current Visit: Yes Status: Acute (7) Malignant hypertension Current Visit: Yes Status: Acute (8) Methamphetamine abuse Current Visit: Yes Status: Acute (9) COPD (chronic obstructive pulmonary disease) Current Visit: Yes Status: Chronic Qualifiers: (10) Type 2 diabetes mellitus Current Visit: Yes Status: Chronic Qualifiers: Diabetes mellitus fci insulin use: with fci use Diabetes mellitus complication status: with kidney complications Diabetes mellitus complication detail: with chronic kidney disease Chronic kidney disease stage 3 subtype: stage 3a (GFR 45-59) - Plan Assessment Patient is a 47 year old male with morbid obesity. He was admitted with methamphetamine toxicity complicated by CVA, cerebral edema and cardiac arrest. He was on the mechanical ventilator and remained minimally responsive. Patient suffered multi-organ failure with no signs of improvement. Family discussed with Neurology and opted to terminally extubate the patient. Toxic metabolic encephalopathy Methamphetamine toxicity CVA and cerebral edema Multi-organ failure PLAN: Patient has been extubated Family withdrew care. We've transitioned to comfort measures He is being considered for inpatient hospice Will continue supportive care until he is transitioned to IP hospice
[2022-07-03] MEDS ORDERED: MORPHINE 4 MG/ML SYR IV PRN (11:49)
[2022-07-03] MEDS: MORPHINE 4 MG/ML SYR IV PRN ×3 (15:59→22:15)
[2022-07-03] MEDS: ATORVASTATIN 40 MG TAB PO SCH (19:39)
[2022-07-04] MEDS: ALBUTEROL 2.5 MG/3 ML NEB SOL NEB SCH ×3 (02:00→14:00)
[2022-07-04] MEDS: PANTOPRAZOLE 40 MG INJ IVP SCH (02:00)
[2022-07-04] MEDS: MORPHINE 4 MG/ML SYR IV PRN ×4 (04:08→16:28)
[2022-07-04] MEDS: NICOTINE 21 MG/PAT TD SCH (07:29)
[2022-07-04 08:02] VITALS: BP 87/55; TEMP 96.7
--- NOTE | 2022-07-04 12:51 | P.PN ---
Subjective Date of Service: 07/04/22 Chief Complaint: Malignant HTN, CHF Subjective: No new changes (Patient is non-responsive. No sedation on board. He has been on comfort care measures for the past 2 days.) Physical Examination - Vital Signs Temperature: 96.7 F Blood Pressure: 87/55 Pulse: 62 Respirations: 20 Pulse Ox (%): 91 - Physical Exam General: Other (unresponsive) HEENT: Atraumatic, Normocephalic Cardiovascular: No edema, Normal pulses, Regular rate/rhythm, Normal S1 S2 Musculoskeletal: No clubbing, No swelling, No contractures Assessment And Plan - Current Problems (Diagnosis) (1) Accelerated hypertension Current Visit: Yes Status: Acute (2) Acute liver failure Current Visit: Yes Status: Acute (3) Acute metabolic encephalopathy Current Visit: Yes Status: Acute (4) Acute on chronic systolic heart failure Current Visit: Yes Status: Acute (5) Acute renal failure Current Visit: Yes Status: Acute (6) Coagulopathy Current Visit: Yes Status: Acute (7) Malignant hypertension Current Visit: Yes Status: Acute (8) Methamphetamine abuse Current Visit: Yes Status: Acute (9) COPD (chronic obstructive pulmonary disease) Current Visit: Yes Status: Chronic Qualifiers: (10) Type 2 diabetes mellitus Current Visit: Yes Status: Chronic Qualifiers: Diabetes mellitus alf insulin use: with termite control service representative use Diabetes mellitus complication status: with kidney complications Diabetes mellitus complication detail: with chronic kidney disease Chronic kidney disease stage 3 subtype: stage 3a (GFR 45-59) - Plan Assessment Patient is a 47 year old male with morbid obesity. He was admitted with methamphetamine toxicity complicated by CVA, cerebral edema and cardiac arrest. He was on the mechanical ventilator and remained minimally responsive. Patient suffered multi-organ failure with no signs of improvement. Family discussed with Neurology and opted to terminally extubate the patient. Toxic metabolic encephalopathy Methamphetamine toxicity CVA and cerebral edema Multi-organ failure PLAN: Patient is currently on comfort care measures He is pending evaluation by Hospice I also had a meeting with his parents today. They want no escalation of care Patient will be discharged once approved by Hospice Stop routine vitals and labs
== END 2022-07-04 21:50 | disposition expired | DRG 304 ==
LOC: ER 17:05 → ERHOLD 19:37 → 3RD-ICU 06-27 16:47 → 2ND 07-03 17:40
PROVIDERS: ADMIT Internal Medicine; ATTEND Internal Medicine
PROC: 02HV33Z Insertion of Infusion Device into Superior Vena Cava, Percutaneous Approach (ICD-10-PCS; principal; 2022-06-28)
PROC: 3E043XZ Introduction of Vasopressor into Central Vein, Percutaneous Approach (ICD-10-PCS; 2022-06-28)
PROC: 0BH17EZ Insertion of Endotracheal Airway into Trachea, Via Natural or Artificial Opening (ICD-10-PCS; 2022-06-28)
PROC: 5A1945Z Respiratory Ventilation, 24-96 Consecutive Hours (ICD-10-PCS; 2022-06-28)
DX: I16.9 Hypertensive crisis, unspecified (principal); I50.33 Acute on chronic diastolic (congestive) heart failure; A41.9 Sepsis, unspecified organism; N17.0 Acute kidney failure with tubular necrosis; J96.00 Acute respiratory failure, unspecified whether with hypoxia or hypercapnia; I63.9 Cerebral infarction, unspecified; K72.01 Acute and subacute hepatic failure with coma; G92.8 Other toxic encephalopathy; D68.9 Coagulation defect, unspecified; E87.2 Acidosis; G81.94 Hemiplegia, unspecified affecting left nondominant side; I11.0 Hypertensive heart disease with heart failure; M10.9 Gout, unspecified; M06.9 Rheumatoid arthritis, unspecified; E78.5 Hyperlipidemia, unspecified; I27.20 Pulmonary hypertension, unspecified; F15.10 Other stimulant abuse, uncomplicated; T43.625A Adverse effect of amphetamines, initial encounter; I46.9 Cardiac arrest, cause unspecified; E87.5 Hyperkalemia; E11.9 Type 2 diabetes mellitus without complications; E66.01 Morbid (severe) obesity due to excess calories; Z68.38 Body mass index [BMI] 38.0-38.9, adult; R57.8 Other shock; Z78.1 Physical restraint status; J44.9 Chronic obstructive pulmonary disease, unspecified; F17.210 Nicotine dependence, cigarettes, uncomplicated; Z79.4 Long term (current) use of insulin; Z59.00 Homelessness unspecified; Z66 Do not resuscitate; Z91.14 Patient's other noncompliance with medication regimen; Z20.822 Contact with and (suspected) exposure to COVID-19
CPT/HCPCS: 36415; 36569; 70450; 71045; 80048; 80053; 80061; 80202; 80307; 81001; 82140; 82550; 82553; 82805; 82947; 83036; 83605; 83735; 83880; 84100; 84132; 84145; 84443; 84484; 84550; 85025; 85384; 85610; 85730; 87040; 87086; 87088; 87811; 93005; 94002; 94003; 94640; 95816; 96365; 96366; 96375; 99285; C9113; J0171; J0610; J0692; J1170; J1200; J1265; J1630; J1650; J1815; J1940; J1953; J2250; J2310; J2405; J2704; J3010; J3360; J3370; J3480; J7030; J7040; J7060; J7799; P9047